=== PATIENT | male | born 1980 | race Caucasian/White ===

== ENCOUNTER 2017-05-31 13:47 | Inpatient (IN) ==
[~2017-05-31 13:47] MED LIST: Aminoglycoside Consult 1 EACH MC ONE
[2017-05-31] MEDS ORDERED: Naloxone 0.4 MG/ML INJ IVP PRN (18:10)
--- NOTE | 2017-05-31 18:39 | Internal Med History&Physical ---
<Steven Henry - Last Filed: 05/31/17 20:00> Date of Encounter: 05/31/17 Internal Medicine - H&P: HPI History of present illness: Mr. Beck is a 36 year old male Internal Medicine - H&P: Meds Gabapentin [Neurontin] 800 mg PO BID 12/09/16 [History] Lactobacillus Acidophilus [Acidophilus] 1 each PO BID 12/09/16 [History] Polyethylene Glycol 3350 [MiraLAX Powder Bulk 17.9 Oz] 1 scoop PO DAILY [History] Ranitidine Oral Soln [Zantac] 75 mg PO HS 12/09/16 [History] Simethicone [Gas-X] 80 mg PO QID 12/09/16 [History] 3 Allergy/AdvReac Type Severity Reaction Status Date / Time levofloxacin [From Levaquin] Allergy See Verified 05/31/17 09:42 Comments meperidine [From Demerol] Allergy See Verified 05/31/17 09:42 Comments ondansetron Allergy See Verified 05/31/17 09:42 [From Zofran (as Comments hydrochloride)] All Systems PM: A 10-system review of systems was performed and is negative for pertinent findings except as documented above in the HPI. - Constitutional Vitals: Temp Pulse Resp BP Pulse Ox 101.2 F H 119 20 141/112 94 05/31/17 16:55 05/31/17 16:55 05/31/17 16:55 05/31/17 16:55 05/31/17 18:05 - Attending Attestation I independently obtained history and examined this patient and my medical decision-making was reviewed with the nurse practitioner. I agree with the documented findings, disposition and treatment plan as described. My findings are summarized below: Patient is nonverbal at baseline. He has chronic dysphagia and has nutrition by tube feeds. He had one episode of aspiration at the alf and was transferred to our hospital for further care. Patient is currently afebrile and tachycardic. CT of the chest compatible with pneumonia. We will treat him as sepsis secondary to healthcare associated pneumonia with Zosyn and vancomycin , IV fluids. Check blood cultures and sputum culture. Consult pulmonology. He is at high risk for morbidity mortality and complications due to poor baseline mental status. Steven Henry MD <Felipe Olivares Last Filed: 05/31/17 20:34> Date of Encounter: 05/31/17 Time of Encounter: 18:28 Assessment and Plan (1) Mucus plugging of bronchi Current visit: Yes Status: Acute Patient is a 1 day history of increased respiratory distress. At baseline he does not require any O2, however, at this time is requiring 5 L cannula to maintain SPO2 94% or greater. CT of the lungs revealed it is plugs and left lower lobe likely requiring bronchoscopy. Continuous telemetry Continuous SPO2 monitoring with respiratory support as needed; if patient declines consider intubation instead Bipap as he is unable to protect his airway Consult pulmonology as the patient may need bronchoscopy. (2) Sepsis Current visit: Yes Status: Acute Patient is tachycardic and afebrile. Hemodynamically stable at this time. Due to meeting SIRS criteria: Initiate sepsis protocol; he has a risk for aspiration pneumonia due to vomiting of tube feed. Stat lactic acid, stat blood cultures, ABG Vancomycin with pharmacy to dose Zosyn every 8 hours Narrow antibiotic therapy is appropriate Qualifiers: Sepsis type: sepsis due to unspecified organism Qualified Code(s): A41.9 - Sepsis, unspecified organism (3) Aspiration into respiratory tract Current visit: Yes Status: Acute Patient is a resident of [facility], [facility]. They reported finding him this morning with tube feed emisis and in respiratory distress. Concerning for aspiration pneumonia. Initial chest x-ray negative for acute pulmonary process. Initial CT of chest shows no concern for aspiration pneumonia only exhibiting mild mucus plugging in left upper lobe. see plan above Qualifiers: Encounter type: initial encounter Qualified Code(s): T17.908A - Unspecified foreign body in respiratory tract, part unspecified causing other injury, initial encounter (4) UTI (urinary tract infection) Current visit: Yes Status: Acute UA revealing large amount of leukocytes, moderate amount of blood in the urine. Urinary tract infection, also be causing septic response. The patient is on Zosyn , this should cover urinary tract organisms. Qualifiers: Urinary tract infection type: site unspecified Hematuria presence: with hematuria Qualified Code(s): N39.0 - Urinary tract infection, site not specified; R31.9 - Hematuria, unspecified; R31.9 - Hematuria, unspecified (5) DVT prophylaxis Current visit: Yes Status: Acute LOVENOX 40MG SC DAILY Internal Medicine - H&P: HPI Chief complaint: Shortness of breath Admitted From: Long-term [facility] Plans for Post Hospital Care: Transfer [facility] History of present illness: Mr. Beck is a 36 year old male with a PMH of MRDD, GERD, seizures. Presents to [facility] today with new shortness of breath and cough. Father at bedside, father reports that he lives at [facility]. Daughter reports that [facility] contacted him this morning and informed the patient was having respiratory distress and requiring IV flow oxygen to maintain his oxygen saturation. He reports that the [facility] facility informed him they were concerned that the patient may have aspirated on his tube feed. He was told that the patient was found with tube feed coming out of his mouth. Upon my assessment the patient remains on 5 L nasal cannula but is not in any respiratory distress. X-ray and CT of chest negative for aspiration pneumonia. CT of chest shows mucus plugging. CBC and CMP unremarkable. Admitting for further workup and evaluation Past Med Surg Social Fam HX - Past Medical History Medical history: GERD, seizures Psychiatric history: no psych history - Social History Smoking Status: Never smoker Smokeless Tobacco Status: No Alcohol use: none Drug use: none - Additional Family History Additional family history: Noncontributory ROS unobtainable: due to mental status All Systems PM: Review of systems obtained from father at bedside. Review of systems was obtained to the best of my capabilities as the patient is MRDD and unable to adequately communicate. - Constitutional Constitutional: no fever(s) - EENT Eyes: no change in vision - Cardiovascular Cardiovascular ROS IM: dyspnea - Respiratory Respiratory: dyspnea - Constitutional Vitals: Temp Pulse Resp BP Pulse Ox 101.2 F H 119 20 141/112 94 05/31/17 16:55 05/31/17 16:55 05/31/17 16:55 05/31/17 16:55 05/31/17 18:05 General appearance: Present: A&O X 0, mild distress - Head Head exam: Present: atraumatic, normocephalic - Eye Eye exam: Present: conjuntiva pink, sclera anicteric - Neck Neck exam general surgery: Present: supple, trachea midline. Absent: lymphadenopathy - Respiratory Respiratory exam: Present: CTAB, respiratory distress (Mild respiratory distress ), rhonchi. Absent: accessory muscle use, rales, wheezes - Cardiovascular Cardiovascular exam: Present: RRR, +S1, +S2. Absent: diastolic murmur, gallop, rubs, systolic murmur - GI/Abdominal GI/Abdominal exam: Present: normal bowel sounds, soft, no peritoneal signs. Absent: distended, tenderness - Extremities Exam Extremities exam: Present: warm, radial pulses palpable and symmetrical. Absent : calf tenderness, cyanotic, pedal edema - Neurological Exam Neurological exam: Present: altered, CN II-XII intact (due to MRDD), no focal deficits. Absent: pronater drift, facial droop, speech deficit - Skin Skin exam: Present: dry, intact
[2017-05-31] MEDS ORDERED: Vancomycin 1,250 MG in D5% in Water 250 ML IVPB ONE (20:00)
[2017-05-31] MEDS ORDERED: Simethicone 80 MG TAB.CHEW PO SCH (21:00)
[2017-05-31] MEDS ORDERED: Gabapentin 400 MG CAPSULE PO SCH (21:00)
[2017-05-31] MEDS ORDERED: Lactobacillus 1 EACH CAP.SPRINK PO SCH (21:00)
[2017-05-31 21:18] LABS: ABG Base Excess -1 mEq/L (-2 to 3); ABG HCO3 24 mEq/L (21-27); ABG Oxygen Saturation 97 % (95-98); ABG PCO2 38 mmHg (35-45); ABG PO2 92 mmHg (85-104); ABG TCO2 25 mEq/L (20-26)
[2017-05-31] MEDS: 0.9 % Sodium Chloride 1,000 ML IVC SCH (23:00)
[2017-05-31] MEDS: Piperacillin/Tazobactam 3.375 GM in D5% in Water (Mini-Bag+) 100 ML IVPB SCH (23:37)
[2017-06-01 03:51] LABS: Basophils % 0.2 %; Eosinophils % 0.1 %; Hematocrit 44.2 % (37.5-50.1); Hemoglobin 14.4 g/dL (12.9-16.9); Immature Granulocytes % 0.3 % (0-4); Lymphocytes # 1.5 K/mcL (0.6-4.6); Lymphocytes % 13.2 %; Mean Corpuscular HGB Conc 32.6 g/dL (31.6-35.5); Mean Corpuscular Hemoglobin 29.4 pg (28.0-33.3); Mean Corpuscular Volume 90.2 fL (83.0-100.0); Mean Platelet Volume 12.4 fL (9.4-12.4); Monocytes # 0.8 K/mcL (0.0-1.3); Monocytes % 7.2 %; Neutrophils # 9.2 K/mcL (1.6-8.9); Platelet Count 172 K/mcL (140-400); Red Cell Distribution Width 12.9 % (11.5-14.5)
[2017-06-01 04:04] LABS: BUN/Creatinine Ratio 14 (6-26); Blood Urea Nitrogen 8 mg/dL (8-26); Calcium 8.7 mg/dL (8.6-10.8); Carbon Dioxide 22 mEq/L (19-29); Chloride 108 mEq/L (98-109); Glucose 90 mg/dL (70-99); Osmolality,Calculated 284 (280-300); Potassium 3.7 mEq/L (3.5-4.5); Sodium 138 mEq/L (136-145); eGFR For African Americans > 60 (> 60); eGFR For Non-African Americans > 60 (> 60)
[2017-06-01] MEDS: *HR* Enoxaparin 40 MG/0.4 ML SYRINGE SQ SCH (05:40)
[2017-06-01] MEDS: Lactobacillus 1 EACH CAP.SPRINK PO SCH (07:44)
[2017-06-01] MEDS: Simethicone 80 MG TAB.CHEW PO SCH ×3 (07:44→17:32)
[2017-06-01] MEDS: Gabapentin 400 MG CAPSULE PO SCH (07:44)
[2017-06-01] MEDS: Piperacillin/Tazobactam 3.375 GM in D5% in Water (Mini-Bag+) 100 ML IVPB SCH ×2 (07:50→17:32)
[2017-06-01] MEDS ORDERED: Polyethylene Glycol 3350 255 GM POWDER PO SCH ×2 (09:00)
[2017-06-01] MEDS ORDERED: Vancomycin 1,250 MG in D5% in Water 250 ML IVPB SCH (10:00)
--- NOTE | 2017-06-01 10:30 | Internal Med Progress Note ---
<Clemente Nowak - Last Filed: 06/01/17 18:55> Date of Encounter: 06/01/17 - Assessment and plan (1) Acute respiratory failure with hypoxia Current Visit: Yes Status: Acute (2) Aspiration pneumonia due to food (regurgitated) Current Visit: Yes Status: Suspected Qualifiers: Laterality: unspecified laterality Lung location: unspecified part of lung Qualified Code(s): J69.0 - Pneumonitis due to inhalation of food and vomit (3) Sepsis Current Visit: Yes Status: Acute Qualifiers: Sepsis type: sepsis due to unspecified organism Qualified Code(s): A41.9 - Sepsis, unspecified organism (4) Mucus plugging of bronchi Current Visit: Yes Status: Acute (5) UTI (urinary tract infection) Current Visit: Yes Status: Acute Qualifiers: Urinary tract infection type: acute cystitis Hematuria presence: with hematuria Qualified Code(s): N30.01 - Acute cystitis with hematuria - Constitutional Vitals: Temp Pulse Resp BP Pulse Ox 98.2 F 58 22 119/86 96 06/01/17 15:35 06/01/17 15:35 06/01/17 15:35 06/01/17 15:35 06/01/17 15:35 Internal Medicine: Result - Labs CBC & Chem 7: 06/01/17 02:58 06/01/17 02:58 Labs: Short CBC 06/01/17 Range/Units 02:58 WBC 11.6 H (4.3-11.1) K/mcL Hgb 14.4 D (12.9-16.9) g/dL Hct 44.2 (37.5-50.1) % Plt Count 172 (140-400) K/mcL Neutrophils # 9.2 H (1.6-8.9) K/mcL BMP 06/01/17 02:58 Sodium 138 Potassium 3.7 D Chloride 108 Carbon Dioxide 22 BUN 8 Creatinine 0.57 L Glucose 90 Calcium 8.7 - ABG Interpretation ABG results: ABG ABG pH 7.40 pH Units (7.32-7.45) 05/31/17 21:13 ABG pCO2 38 mmHg (35-45) 05/31/17 21:13 ABG pO2 92 mmHg (85-104) 05/31/17 21:13 ABG O2 Saturation 97 % (95-98) 05/31/17 21:13 Consult Discharge Plan - Plan Referrals: Amy Serrato MD [Primary Care Provider] - - Attending Attestation I examined this patient and my medical decision-making was reviewed with the Resident Physician on 06/01/17. I agree with the documented findings, disposition and treatment plan as described except to the extent set forth below. Mr Beck is currently admitted for acute aspiration pneumonia. He remains moderate to high risk due to potential for worsening respiratory status. Mr Beck is nonverbal. Exam Alert. Comfortable at this time. Mucus membranes dry Heart reg Lungs with rhonchi Abd soft I/P 1. Asp pneumonia Further diagnoses and plan as above. <Orin Cox - Last Filed: 06/02/17 06:41> Date of Encounter: 06/02/17 Time of Encounter: 10:27 - Assessment and plan (1) Sepsis Current Visit: Yes Status: Acute Assessment and plan: SIRS criteria met with tachycardia and fever on admission due to UTI vs pneumonia Vancomycin and Zosyn started on admission; stop Vancomycin continue Zosyn Qualifiers: Sepsis type: sepsis due to unspecified organism Qualified Code(s): A41.9 - Sepsis, unspecified organism (2) Aspiration pneumonia due to food (regurgitated) Current Visit: Yes Status: Suspected Assessment and plan: witnessed aspiration of G-tube feed into esophagus suspect aspiration pneumonia, although CT does not show focal consolidation healthcare associated pneumonia due to patient living at alf Vancomycin and Zosyn started on admission; stop Vancomycin continue Zosyn Qualifiers: Laterality: unspecified laterality Lung location: unspecified part of lung Qualified Code(s): J69.0 - Pneumonitis due to inhalation of food and vomit (3) UTI (urinary tract infection) Current Visit: Yes Status: Acute Assessment and plan: probable urine culture pending Vancomycin and Zosyn started on admission; stop Vancomycin continue Zosyn Qualifiers: Urinary tract infection type: acute cystitis Hematuria presence: with hematuria Qualified Code(s): N30.01 - Acute cystitis with hematuria (4) Mucus plugging of bronchi Current Visit: Yes Status: Acute Assessment and plan: mucus plugging of bronchi, left lower lobe, seen on CT chest possible need for bronchoscopy pulmonology consulted; appreciate recommendations - Subjective Interval history: Patient is nonverbal. No family members present. - Constitutional Vitals: Temp Pulse Resp BP Pulse Ox 99.4 F 69 20 133/82 93 06/01/17 08:30 06/01/17 08:30 06/01/17 08:30 06/01/17 08:30 06/01/17 08:30 General appearance: Present: no acute distress - Head Head exam: Present: atraumatic, normocephalic - Eye Eye exam: Present: PERRL, conjuntiva pink, sclera anicteric Pupils: Present: PERRL - Neck Neck exam general surgery: Present: supple, trachea midline - Respiratory Respiratory exam: Present: CTAB Additional comments: on 3L supplemental O2, does not chronically use supplemental O2 - Cardiovascular Cardiovascular exam: Present: RRR, +S1, +S2. Absent: diastolic murmur, gallop, rubs, systolic murmur - GI/Abdominal GI/Abdominal exam: Present: normal bowel sounds, soft. Absent: tenderness Additional comments: LUQ G-tube and LLQ colostomy in place - Extremities Exam Extremities exam: Present: warm. Absent: pedal edema Additional comments: contractures of all extremities, mainly focused at the hands and feet - Neurological Exam Additional comments: nonverbal at baseline, does not follow commands - Skin Skin exam: Present: dry, intact Internal Medicine: Result - Labs CBC & Chem 7: 06/01/17 02:58 06/01/17 02:58 Labs: Short CBC 06/01/17 Range/Units 02:58 WBC 11.6 H (4.3-11.1) K/mcL Hgb 14.4 D (12.9-16.9) g/dL Hct 44.2 (37.5-50.1) % Plt Count 172 (140-400) K/mcL Neutrophils # 9.2 H (1.6-8.9) K/mcL BMP 06/01/17 02:58 Sodium 138 Potassium 3.7 D Chloride 108 Carbon Dioxide 22 BUN 8 Creatinine 0.57 L Glucose 90 Calcium 8.7 - ABG Interpretation ABG results: ABG ABG pH 7.40 pH Units (7.32-7.45) 05/31/17 21:13 ABG pCO2 38 mmHg (35-45) 05/31/17 21:13 ABG pO2 92 mmHg (85-104) 05/31/17 21:13 ABG O2 Saturation 97 % (95-98) 05/31/17 21:13
[2017-06-01] MEDS: 0.9 % Sodium Chloride 1,000 ML IVC SCH (17:33)
[2017-06-02] MEDS: Gabapentin 400 MG CAPSULE PO SCH ×3 (00:26→21:29)
[2017-06-02] MEDS: Simethicone 80 MG TAB.CHEW PO SCH ×5 (00:26→21:29)
[2017-06-02] MEDS: Lactobacillus 1 EACH CAP.SPRINK PO SCH ×2 (00:26→12:00)
[2017-06-02] MEDS: Piperacillin/Tazobactam 3.375 GM in D5% in Water (Mini-Bag+) 100 ML IVPB SCH ×3 (00:38→21:29)
[2017-06-02] MEDS: *HR* Enoxaparin 40 MG/0.4 ML SYRINGE SQ SCH (05:49)
[2017-06-02 07:30] LABS: BUN/Creatinine Ratio 8 (6-26); Blood Urea Nitrogen 10 mg/dL (8-26); Calcium 8.4 mg/dL (8.6-10.8); Carbon Dioxide 20 mEq/L (19-29); Chloride 113 mEq/L (98-109); Glucose 103 mg/dL (70-99); Osmolality,Calculated 293 (280-300); Potassium 3.8 mEq/L (3.5-4.5); Sodium 142 mEq/L (136-145); eGFR For African Americans > 60 (> 60); eGFR For Non-African Americans > 60 (> 60)
[2017-06-02 07:44] LABS: Basophils % 0.3 %; Eosinophils % 0.4 %; Hematocrit 41.3 % (37.5-50.1); Hemoglobin 13.3 g/dL (12.9-16.9); Immature Granulocytes % 0.4 % (0-4); Lymphocytes % 12.8 %; Mean Corpuscular HGB Conc 32.2 g/dL (31.6-35.5); Mean Corpuscular Hemoglobin 29.2 pg (28.0-33.3); Mean Corpuscular Volume 90.8 fL (83.0-100.0); Mean Platelet Volume 12.1 fL (9.4-12.4); Monocytes # 1.1 K/mcL (0.0-1.3); Monocytes % 14.4 %; Neutrophils # 5.7 K/mcL (1.6-8.9); Platelet Count 143 K/mcL (140-400); Red Blood Count 4.55 M/mcL (4.19-5.50); Red Cell Distribution Width 13.2 % (11.5-14.5); Segmented Neutrophils % 71.7 %
--- NOTE | 2017-06-02 10:59 | Internal Med Progress Note ---
<Orin Cox - Last Filed: 06/02/17 11:27> Date of Encounter: 06/02/17 Time of Encounter: 10:57 - Assessment and plan (1) Sepsis Current Visit: Yes Status: Acute Assessment and plan: SIRS criteria met with tachycardia and fever on admission due to UTI vs pneumonia continue Zosyn Qualifiers: Sepsis type: sepsis due to unspecified organism Qualified Code(s): A41.9 - Sepsis, unspecified organism (2) Acute respiratory failure with hypoxia Current Visit: Yes Status: Acute Assessment and plan: currently on 3L via NC does not use home O2 (3) Aspiration pneumonia due to food (regurgitated) Current Visit: Yes Status: Suspected Assessment and plan: witnessed aspiration of G-tube feed into esophagus suspect aspiration pneumonia, although CT does not show focal consolidation healthcare associated pneumonia due to patient living at skilled nursing blood culture preliminary no growth continue Zosyn Qualifiers: Laterality: unspecified laterality Lung location: unspecified part of lung Qualified Code(s): J69.0 - Pneumonitis due to inhalation of food and vomit (4) UTI (urinary tract infection) Current Visit: Yes Status: Acute Assessment and plan: urine culture preliminary report gram positive cocci continue Zosyn Qualifiers: Urinary tract infection type: acute cystitis Hematuria presence: with hematuria Qualified Code(s): N30.01 - Acute cystitis with hematuria (5) Mucus plugging of bronchi Current Visit: Yes Status: Acute Assessment and plan: mucus plugging of bronchi, left lower lobe, seen on CT chest possible need for bronchoscopy pulmonology consulted; appreciate recommendations (6) PARKER (acute kidney injury) Current Visit: Yes Status: Acute Assessment and plan: Cr increased from 0.57 --> 1.27 will scan bladder to check for retention as patient is nonverbal at baseline and does not have a jiménez (7) Decreased hemoglobin Current Visit: Yes Status: Acute Assessment and plan: dropped from 16.3 to 13.3 no obvious source of bleeding GI on board; appreciate recommendations - Subjective Interval history: Patient is nonverbal. No family members present. - Constitutional Vitals: Temp Pulse Resp BP Pulse Ox 99 F 51 15 117/90 95 06/02/17 04:30 06/02/17 07:03 06/02/17 07:03 06/02/17 07:03 06/02/17 07:03 General appearance: Present: mild distress - Head Head exam: Present: atraumatic, normocephalic - Neck Neck exam general surgery: Present: supple, trachea midline - Respiratory Respiratory exam: Present: rhonchi. Absent: wheezes, tachypnea Additional comments: on 3L supplemental O2, does not chronically use supplemental O2 - Cardiovascular Cardiovascular exam: Present: RRR, +S1, +S2. Absent: diastolic murmur, gallop, rubs, systolic murmur - GI/Abdominal GI/Abdominal exam: Present: normal bowel sounds, soft Additional comments: LUQ G-tube and LLQ colostomy in place - Extremities Exam Extremities exam: Present: warm. Absent: pedal edema Additional comments: contractures of all extremities, mainly focused at the hands and feet - Neurological Exam Additional comments: nonverbal at baseline, does not follow commands - Skin Skin exam: Present: dry, intact Internal Medicine: Result - Labs CBC & Chem 7: 06/02/17 07:00 06/02/17 07:00 Labs: Short CBC 06/02/17 Range/Units 07:00 WBC 7.9 (4.3-11.1) K/mcL Hgb 13.3 (12.9-16.9) g/dL Hct 41.3 (37.5-50.1) % Plt Count 143 (140-400) K/mcL Neutrophils # 5.7 (1.6-8.9) K/mcL BMP 06/02/17 07:00 Sodium 142 Potassium 3.8 Chloride 113 H Carbon Dioxide 20 BUN 10 Creatinine 1.27 H D Glucose 103 H Calcium 8.4 L - ABG Interpretation ABG results: ABG ABG pH 7.40 pH Units (7.32-7.45) 05/31/17 21:13 ABG pCO2 38 mmHg (35-45) 05/31/17 21:13 ABG pO2 92 mmHg (85-104) 05/31/17 21:13 ABG O2 Saturation 97 % (95-98) 05/31/17 21:13 - Impressions Impressions KUB X-Ray 06/01/17 20:37 IMPRESSION: The feeding tube is in the gastrointestinal tract, probably in the stomach. No extravasation of contrast is seen. D/ / Sage Whitman MD / Sage Whitman MD Interpreting Provider: Sage Whitman MD Consult Discharge Plan - Plan Referrals: Amy Serrato MD [Primary Care Provider] - <Clemente Nowak - Last Filed: 06/02/17 15:59> Date of Encounter: 06/02/17 - Assessment and plan (1) Acute respiratory failure with hypoxia Current Visit: Yes Status: Acute (2) Aspiration pneumonia due to food (regurgitated) Current Visit: Yes Status: Suspected Qualifiers: Qualified Code(s): J69.0 - Pneumonitis due to inhalation of food and vomit (3) Sepsis Current Visit: Yes Status: Acute Qualifiers: Qualified Code(s): A41.9 - Sepsis, unspecified organism (4) Mucus plugging of bronchi Current Visit: Yes Status: Acute (5) UTI (urinary tract infection) Current Visit: Yes Status: Acute Qualifiers: Qualified Code(s): N30.01 - Acute cystitis with hematuria (6) PARKER (acute kidney injury) Current Visit: Yes Status: Acute - Constitutional Vitals: Temp Pulse Resp BP Pulse Ox 99.5 F 61 21 133/99 95 06/02/17 11:26 06/02/17 11:26 06/02/17 11:26 06/02/17 11:26 06/02/17 11:26 Internal Medicine: Result - Labs CBC & Chem 7: 06/02/17 07:00 06/02/17 07:00 Labs: Short CBC 06/02/17 Range/Units 07:00 WBC 7.9 (4.3-11.1) K/mcL Hgb 13.3 (12.9-16.9) g/dL Hct 41.3 (37.5-50.1) % Plt Count 143 (140-400) K/mcL Neutrophils # 5.7 (1.6-8.9) K/mcL BMP 06/02/17 07:00 Sodium 142 Potassium 3.8 Chloride 113 H Carbon Dioxide 20 BUN 10 Creatinine 1.27 H D Glucose 103 H Calcium 8.4 L - ABG Interpretation ABG results: ABG ABG pH 7.40 pH Units (7.32-7.45) 05/31/17 21:13 ABG pCO2 38 mmHg (35-45) 05/31/17 21:13 ABG pO2 92 mmHg (85-104) 05/31/17 21:13 ABG O2 Saturation 97 % (95-98) 05/31/17 21:13 - Impressions Impressions KUB X-Ray 06/01/17 20:37 IMPRESSION: The feeding tube is in the gastrointestinal tract, probably in the stomach. No extravasation of contrast is seen. D/ / Sage Whitman MD / Sage Whitman MD Interpreting Provider: Sage Whitman MD - Attending Attestation I examined this patient and my medical decision-making was reviewed with the Resident Physician on 06/02/17. I agree with the documented findings, disposition and treatment plan as described except to the extent set forth below. Mr. Beck is currently admitted for acute aspiration pneumonia presumptive. He had issues with PEG last night. He remains moderate to high risk due to potential for worsening clinical status. Mr Beck is nonverbal. Exam Alert Restless Mucus membranes dry Heart reg and not tachy Lungs diminished Abd soft I/P 1. Aspiration 2. PARKER Further diagnoses and plan as above.
--- NOTE | 2017-06-02 11:34 | Pulmonology Consult Note ---
Date of Encounter: 06/02/17 Time of Encounter: 11:30 Assessment and Plan (1) Aspiration pneumonia due to food (regurgitated) Current Visit: Yes Status: Suspected Patient looks like he aspirated reviewing the Ct scan there is no evidence of airspace disease , there were some mucous sub segmental bronchus , the main left lower lobar segmental bronchi are patent there is no significant volume loss but there is evidence of atelectasis and chronic scarring causing these symptoms if it is not getting better in next few days PE is a part of differential . Put down the O2 to 2 LPM patient was saturating 95% , patient has sleep disordered breathing that can contribute to his desaturating. Requested RT do vest therapy see he will tolerate and that will help him. Qualifiers: Laterality: unspecified laterality Lung location: unspecified part of lung Qualified Code(s): J69.0 - Pneumonitis due to inhalation of food and vomit (2) PARKER (acute kidney injury) Current Visit: Yes Status: Acute Volume repletion and repeat serum creatinine. 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 Pulmonary was consulted because of some mucous plugging in the left lower lobe sub segmental bronchi need for bronchoscopy Past Med Surg Social Fam HX - Past Medical History Medical history: GERD, seizures Psychiatric history: no psych history - Social History Smoking Status: Never smoker Smokeless Tobacco Status: No Alcohol use: none Drug use: none Medications and Allergies Gabapentin [Neurontin] 800 mg GTUBE BID 06/01/17 [History] Lactobacillus Acidophilus [Acidophilus] 1 cap GTUBE BID 06/01/17 [History] Multivit-Min/FA/Lycopen/Lutein [A Thru [employer] Multivit Tab] 1 tab GTUBE DAILY 06/01/17 [History] Polyethylene Glycol 3350 [MiraLAX] 17 gm PO DAILY 06/01/17 [History] Ranitidine HCl [Acid [employer]] 150 mg GTUBE HS 06/01/17 [History] Simethicone 80 mg GTUBE QID 06/01/17 [History] 3 Allergy/AdvReac Type Severity Reaction Status Date / Time levofloxacin [From Levaquin] Allergy See Verified 05/31/17 09:42 Comments meperidine [From Demerol] Allergy See Verified 05/31/17 09:42 Comments ondansetron Allergy See Verified 05/31/17 09:42 [From Zofran (as Comments hydrochloride)] All Systems: A 10-system review of systems cannot be done because of baseline mental status Physical Examination Vital Signs: Vital Signs, Last 4 Hours Temp Pulse Resp BP Pulse Ox 06/02/17 11:26 99.5 F 61 21 133/99 95 Auscultation: bilateral: rales (scattered rales ) Gastrointestinal: hypoactive bowel sounds, other (PEG tube site looks clean ) Extremities: other (contractures chronic ) other (non verbal baseline ) Results - Laboratory Findings CBC and BMP: 06/02/17 07:00 06/02/17 07:00 ABG ABG pH 7.40 pH Units (7.32-7.45) 05/31/17 21:13 ABG pCO2 38 mmHg (35-45) 05/31/17 21:13 ABG pO2 92 mmHg (85-104) 05/31/17 21:13 ABG O2 Saturation 97 % (95-98) 05/31/17 21:13 Abnormal lab findings: Abnormal lab results Chloride 113 mEq/L (98-109) H 06/02/17 07:00 Creatinine 1.27 mg/dL (0.72-1.25) H D 06/02/17 07:00 Glucose 103 mg/dL (70-99) H 06/02/17 07:00 POC Glucose 100 (58-89) H 06/01/17 23:56 Calcium 8.4 mg/dL (8.6-10.8) L 06/02/17 07:00 - Microbiology Findings Microbiology Findings: Microbiology, Last 48 Hours 05/31/17 20:41 Blood Culture - Preliminary Peripheral Venipuncture No growth. 05/31/17 20:41 Blood Culture - Preliminary Peripheral Venipuncture No growth. - Clinical Findings Intake & Output: Intake & Output 06/01/17 06/02/17 06/02/17 23:59 07:59 15:59 Intake Total 1125 / 1125 0 / 0 0 / 0 Output Total 400 / 400 0 / 0 Balance 1125 / 1125 -400 / -400 0 / 0 Weight 61.5 kg 61.5 kg Consult Discharge Plan - Plan Referrals: Amy Serrato MD [Primary Care Provider] -
--- NOTE | 2017-06-02 12:09 | Gastroenterology Consult Note ---
Date of Encounter: 06/02/17 Time of Encounter: 10:10 - Assessment and plan (1) PEG (percutaneous endoscopic gastrostomy) status Current Visit: Yes Status: Acute Assessment and plan: PEG tube in place, small amount of drainage noted on 4x4. Dressing removed, no drainage noted from insertion site. KUB with feeding tube in GI tract, probably in GI tract. (2) Decreased hemoglobin Current Visit: Yes Status: Acute Assessment and plan: Hgb 16 on 05/31 and today Hgb 13.3. Continue to monitor CBC daily. Will discuss EGD/colonoscopy with Dr. Flanagan, as there is no obvious source of bleeding. (3) Sepsis Current Visit: Yes Status: Acute Assessment and plan: Management per primary team Qualifiers: Sepsis type: sepsis due to unspecified organism Qualified Code(s): A41.9 - Sepsis, unspecified organism - Time Spent With Patient Total time spent is greater than 50% in coordination of care (as documented) at patient's floor/unit and/or counseling patient: GI History of Present Illness - Data of Consult Patient: new to practice Consult date: 06/02/17 Requesting Physician: Clemente Nowak DO - Consult Narrative Reason for consult: Brown drainage from PEG site History of present illness: Mr. Beck is a 36 year old male with PMHx of MRDD, GERD, seizures who presented with SOB and cough. Pt is nonverbal and history obtained from chart review. No family at bedside. Pt lives [facility] a [facility]. The facility contacted the family and reported the patient was having respiratory distress and requiring IV flow oxygen to maintain his oxygen saturation. The long-term care facility informed him they were concerned that the patient may have aspirated on his tube feed. He was told that the patient was found with tube feed coming out of his mouth. X-ray and CT of chest negative for aspiration pneumonia. CT of chest shows mucus plugging. Procedures: None NSAIDs: None Anticoagulation: None Past Med Surg Social Fam HX - Past Medical History Medical history: GERD, seizures Psychiatric history: no psych history - Social History Smoking Status: Never smoker Smokeless Tobacco Status: No Alcohol use: none Drug use: none ROS unobtainable: due to mental status - Constitutional Vitals: Temp Pulse Resp BP Pulse Ox 99.5 F 61 21 133/99 95 06/02/17 11:26 06/02/17 11:26 06/02/17 11:26 06/02/17 11:26 06/02/17 11:26 General appearance: Present: no acute distress - Head Head exam: Present: atraumatic, normocephalic - Eye Eye exam: Present: normal appearance, sclera anicteric - ENT ENT exam: Present: mucous membranes dry - Neck Neck exam general surgery: Present: normal inspection, trachea midline - Respiratory Respiratory exam: Present: decreased breath sounds, rhonchi - Cardiovascular Cardiovascular exam: Present: RRR, +S1, +S2 - GI/Abdominal GI/Abdominal exam: Present: soft, no peritoneal signs. Absent: distended, firm , guarding, tenderness Additional comments: LUQ G-tube and LLQ colostomy in place - Rectal Rectal exam: Present: deferred - Extremities Exam Extremities exam: Present: warm - Neurological Exam Neurological exam: Present: no focal deficits - Psychiatric Psychiatric exam: Present: normal affect, normal mood - Skin Skin exam: Present: dry, intact, normal color, warm Results - Labs CBC & Chem 7: 06/02/17 07:00 06/02/17 07:00 Labs: Last Result Calcium 8.4 mg/dL (8.6-10.8) L 06/02/17 07:00 Entire Visit Hgb 13.3 g/dL (12.9-16.9) 06/02/17 07:00 Hct 41.3 % (37.5-50.1) 06/02/17 07:00 - ABG ABG results: ABG ABG pH 7.40 pH Units (7.32-7.45) 05/31/17 21:13 ABG pCO2 38 mmHg (35-45) 05/31/17 21:13 ABG pO2 92 mmHg (85-104) 05/31/17 21:13 ABG O2 Saturation 97 % (95-98) 05/31/17 21:13 - Impressions Impressions KUB X-Ray 06/01/17 20:37 IMPRESSION: The feeding tube is in the gastrointestinal tract, probably in the stomach. No extravasation of contrast is seen. D/ / Sage Whitman MD / Sage Whitman MD Interpreting Provider: Sage Whitman MD Consult Discharge Plan - Plan Referrals: Amy Serrato MD [Primary Care Provider] -
[2017-06-02] MEDS: 0.9 % Sodium Chloride 1,000 ML IVC SCH (17:15)
[2017-06-02] MEDS ORDERED: Lactobacillus 1 EACH CAP.SPRINK GTUBE SCH (21:00)
[2017-06-02] MEDS ORDERED: Sulfamethoxazole/Trimeth DS 1 EACH TABLET PO SCH (21:00)
[2017-06-03] MEDS: 0.9 % Sodium Chloride 1,000 ML IVC SCH (03:41)
[2017-06-03 04:00] LABS: Basophils % 0.4 %; Eosinophils % 0.5 %; Hematocrit 39.3 % (37.5-50.1); Hemoglobin 12.7 g/dL (12.9-16.9); Immature Granulocytes % 0.2 % (0-4); Lymphocytes # 1.3 K/mcL (0.6-4.6); Lymphocytes % 15.2 %; Mean Corpuscular HGB Conc 32.3 g/dL (31.6-35.5); Mean Corpuscular Hemoglobin 29.3 pg (28.0-33.3); Mean Corpuscular Volume 90.6 fL (83.0-100.0); Mean Platelet Volume 11.7 fL (9.4-12.4); Monocytes # 1.1 K/mcL (0.0-1.3); Monocytes % 12.8 %; Neutrophils # 6.1 K/mcL (1.6-8.9); Platelet Count 138 K/mcL (140-400); Red Blood Count 4.34 M/mcL (4.19-5.50); Red Cell Distribution Width 13.2 % (11.5-14.5); Segmented Neutrophils % 70.9 %
[2017-06-03 04:19] LABS: Calcium 8.3 mg/dL (8.6-10.8); Potassium 3.3 mEq/L (3.5-4.5)
[2017-06-03] MEDS: Piperacillin/Tazobactam 3.375 GM in D5% in Water (Mini-Bag+) 100 ML IVPB SCH (05:50)
[2017-06-03] MEDS: *HR* Enoxaparin 40 MG/0.4 ML SYRINGE SQ SCH (05:51)
--- NOTE | 2017-06-03 08:08 | Nephrology Consult Note ---
Date of Encounter: 06/03/17 Time of Encounter: 08:06 Assessment and Plan (1) PARKER (acute kidney injury) Current Visit: Yes Status: Acute The patient has a clinical picture of acute kidney injury in the setting of a MRSA urinary tract infection. Bladder dysfunction needs to be ruled out. Currently he is incontinent of urine. I will suggest placing a Piper so we can ensure adequate bladder drainage and also monitor his urine output. Nephrotoxins should be avoided. He should not be placed on vancomycin. In addition he is on ranitidine and Bactrim both of which can reduce the renal secretion of creatinine without affecting his GFR. This may be at least contributing to the increase in his serum creatinine level without causing any underlying renal injury. Adequate IV hydration needs to be insured until the patient is on adequate intake through his feeding tube. We will continue to monitor his renal function we will also get a renal ultrasound to get a better look at his bladder. (2) UTI (urinary tract infection) Current Visit: Yes Status: Acute Qualifiers: Urinary tract infection type: acute cystitis Hematuria presence: with hematuria Qualified Code(s): N30.01 - Acute cystitis with hematuria History of Present Illness - History of Present Illness This is a 36-year-old male from an [facility]. The patient has a history of MRDD and is nonverbal. History is obtained from the medical record. The patient was sent to the emergency room because of concern for possible aspiration pneumonia. He is maintained on tube feedings through a PEG tube. According to the medical record some tube feedings were found in his mouth. He subsequently was sent in for further evaluation. CT scan and chest x-ray did not suggest any evidence of pneumonia. A urine culture is growing MRSA. Blood cultures are negative. On admission the patient had a normal serum creatinine of 0.57. It has subsequently increased to 1.27 and now is 2.05. Urine output is not well documented because the patient is incontinent. The patient did receive several doses of vancomycin but this has been discontinued. He is on Bactrim as well as ranitidine. He has been noted to be hypoxic at times. It study may have some underlying obstructive sleep apnea. Vital signs appear to have been stable. He has received maintenance IV fluids. Past Med Surg Social Fam HX - Past Medical History Medical history: GERD, seizures Psychiatric history: no psych history - Social History Smoking Status: Never smoker Smokeless Tobacco Status: No Alcohol use: none Drug use: none Medications and Allergies Gabapentin [Neurontin] 800 mg GTUBE BID 06/01/17 [History] Lactobacillus Acidophilus [Acidophilus] 1 cap GTUBE BID 06/01/17 [History] Multivit-Min/FA/Lycopen/Lutein [A Thru Z Select Multivit Tab] 1 tab GTUBE DAILY 06/01/17 [History] Polyethylene Glycol 3350 [MiraLAX] 17 gm PO DAILY 06/01/17 [History] Ranitidine HCl [Acid [employer]] 150 mg GTUBE HS 06/01/17 [History] Simethicone 80 mg GTUBE QID 06/01/17 [History] 3 Allergy/AdvReac Type Severity Reaction Status Date / Time levofloxacin [From Levaquin] Allergy See Verified 05/31/17 09:42 Comments meperidine [From Demerol] Allergy See Verified 05/31/17 09:42 Comments ondansetron Allergy See Verified 05/31/17 09:42 [From Zofran (as Comments hydrochloride)] Review of Systems ROS unobtainable: due to mental status Exam - Vital Signs Vital signs: Initial Vital Signs Temp Pulse Resp BP Pulse Ox 101.2 F H 119 20 141/112 92 05/31/17 16:55 05/31/17 16:55 05/31/17 16:55 05/31/17 16:55 05/31/17 16:55 Vital Signs - Last 8 Hours Temp Pulse Resp BP Pulse Ox 06/03/17 07:47 98.8 F 61 16 107/78 99 06/03/17 04:00 98.6 F 61 19 125/96 86 Intake and Output 06/02/17 06/03/17 06/03/17 23:59 07:59 15:59 Intake Total 100 / 100 1100 / 1100 Output Total 50 / 50 0 / 0 Balance 50 / 50 1100 / 1100 Intake: IV Fluids 100 / 100 1100 / 1100 0.9 % Sodium Chloride 1,000 ML 1000 / 1000 @ 100 mls/hr IVC .Q10H TIFFANY Rx#: [id number] Zosyn 3.375 GM In Dextrose 5% ( 100 / 100 100 / 100 Minibag+) 100 ML 100 ML @ 25 mls/hr IVPB Q8H TIFFANY Rx#: [id number] Oral 0 / 0 0 / 0 Output: Urine 0 / 0 0 / 0 Stool 50 / 50 Other: Meal Dinner Percent of Meal Consumed 0% # Urine Diapers 1 Blood Glucose* 90 - General Appearance Exam: The patient opens eyes in response to his name. He is nonverbal. He does not appear to be in any acute distress. Lungs essentially clear to auscultation. Occasionally the breath sounds are coarse. Heart regular rate and rhythm. Abdomen is soft. There is no guarding or rigidity. A colostomy is present. A PEG tube is also present. Currently the PEG tube is not being utilized. He does have deformities of both feet. He has contractures of his hands. He has some mild lower extremity swelling. Results - Lab Results 06/03/17 03:40 06/03/17 03:40 Most recent lab results ABG pH 7.40 pH Units (7.32-7.45) 05/31/17 21:13 ABG pCO2 38 mmHg (35-45) 05/31/17 21:13 ABG pO2 92 mmHg (85-104) 05/31/17 21:13 ABG HCO3 24 mEq/L (21-27) 05/31/17 21:13 ABG O2 Saturation 97 % (95-98) 05/31/17 21:13 Calcium 8.3 mg/dL (8.6-10.8) L 06/03/17 03:40 Consult Discharge Plan - Plan Referrals: Amy Serrato MD [Primary Care Provider] -
--- NOTE | 2017-06-03 08:15 | Pulmonology Progress Note ---
Date of Encounter: 06/03/17 Time of Encounter: 08:15 Assessment and Plan (1) Aspiration pneumonia due to food (regurgitated) Current Visit: Yes Status: Suspected Patient will need bronchopulmonary toileting spoke with RT to continue the hand held percussion . To continue broad spectrum antibiotics , his abdomen is distended he might have abdominal pain . GI following considering Endoscopy. Spoke with Primary team to speak with family regarding goals of care , patient is non verbal at baseline not sure whether he is in pain putting through all the procedures wont benefit him long run . Will suggest Palliative care involvement in coordinating with talks with family regarding goals of care . If he coughs up will send some samples. Qualifiers: Laterality: unspecified laterality Lung location: unspecified part of lung Qualified Code(s): J69.0 - Pneumonitis due to inhalation of food and vomit (2) PARKER (acute kidney injury) Current Visit: Yes Status: Acute Nephrology following Ultrasound retroperitoneum showed hydronephrosis due to renal calculi . Management according to Primary team. (3) Sleep disorder breathing Current Visit: Yes Status: Acute On Clinical exam and with desaturation pattern patient has sleep disordered breathing . Difficult to do PSG glaser PAP therapy . Patient will need nocturnal O2 supplementation as outpatient to ascertain nocturnal O2 needs . 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 Objective PUL Vital signs: Last Vital Signs Temp 98.8 F 06/03/17 07:47 Pulse 61 06/03/17 07:47 Resp 16 06/03/17 07:47 BP 107/78 06/03/17 07:47 Pulse Ox 99 06/03/17 07:47 General appearance: other (Patient wakes up when i called his name , he was yelling not sure he is having pain) Auscultation: bilateral: diminished breath sounds Gastrointestinal: hypoactive bowel sounds, other (distended abdomen) Gait: other (Patient has contractures on both upper and lower limb) other (Patient Neurology is at his baseline non verbal no new focal changes ) Results - Laboratory Findings CBC and BMP: 06/03/17 03:40 06/03/17 03:40 ABG ABG pH 7.40 pH Units (7.32-7.45) 05/31/17 21:13 ABG pCO2 38 mmHg (35-45) 05/31/17 21:13 ABG pO2 92 mmHg (85-104) 05/31/17 21:13 ABG O2 Saturation 97 % (95-98) 05/31/17 21:13 Abnormal lab findings: Abnormal lab results Hgb 12.7 g/dL (12.9-16.9) L 06/03/17 03:40 Plt Count 138 K/mcL (140-400) L 06/03/17 03:40 Potassium 3.3 mEq/L (3.5-4.5) L 06/03/17 03:40 Chloride 115 mEq/L (98-109) H 06/03/17 03:40 Creatinine 2.05 mg/dL (0.72-1.25) H D 06/03/17 03:40 Est GFR ( Amer) 45 (> 60) L 06/03/17 03:40 Est GFR (Non-Af Amer) 37 (> 60) L 06/03/17 03:40 POC Glucose 90 (58-89) H 06/03/17 06:20 Calcium 8.3 mg/dL (8.6-10.8) L 06/03/17 03:40 - Microbiology Findings Microbiology Findings: Microbiology, Last 48 Hours 05/31/17 20:41 Blood Culture - Preliminary Peripheral Venipuncture No growth. 05/31/17 20:41 Blood Culture - Preliminary Peripheral Venipuncture No growth. - Clinical Findings Intake & Output: Intake & Output 06/02/17 06/03/17 06/03/17 23:59 07:59 15:59 Intake Total 100 / 100 1100 / 1100 Output Total 50 / 50 0 / 0 Balance 50 / 50 1100 / 1100 Consult Discharge Plan - Plan Referrals: Amy Serrato MD [Primary Care Provider] -
[2017-06-03] MEDS: Ringers Solution, Lactated 1,000 ML IVC SCH (12:39)
[2017-06-03] MEDS: Pantoprazole 40 MG VIAL IVP SCH ×2 (12:40→21:09)
--- NOTE | 2017-06-03 15:21 | Internal Med Progress Note ---
<Orin Cox - Last Filed: 06/03/17 15:17> Date of Encounter: 06/03/17 Time of Encounter: 15:22 - Assessment and plan (1) Sepsis Current Visit: Yes Status: Acute Assessment and plan: SIRS criteria met with tachycardia and fever on admission MRSA UTI antibiotics changed to Zyvox Abdomen distended this morning even though tube feeds have been held due to mild drainage around G-tube stoma. CT abdomen/pelvis ordered. Abdomen/pelvis CT: New airspace disease in the dependent portions of the lower lobes, either secondary to atelectasis or pneumonia. No acute abnormality in the abdomen/pelvis. Nonobstructing 1.4 cm right renal calculus. Qualifiers: Sepsis type: sepsis due to unspecified organism Qualified Code(s): A41.9 - Sepsis, unspecified organism (2) Acute respiratory failure with hypoxia Current Visit: Yes Status: Acute Assessment and plan: currently on 2L via NC does not use home O2 (3) Aspiration pneumonia due to food (regurgitated) Current Visit: Yes Status: Suspected Assessment and plan: witnessed aspiration of G-tube feed into esophagus suspected aspiration pneumonia, although CT does not show focal consolidation would be healthcare associated pneumonia due to patient living at senior living blood culture preliminary no growth antibiotics changed to Zyvox for MRSA UTI Qualifiers: Laterality: unspecified laterality Lung location: unspecified part of lung Qualified Code(s): J69.0 - Pneumonitis due to inhalation of food and vomit (4) UTI (urinary tract infection) Current Visit: Yes Status: Acute Assessment and plan: MRSA UTI Zyvox Qualifiers: Urinary tract infection type: acute cystitis Hematuria presence: with hematuria Qualified Code(s): N30.01 - Acute cystitis with hematuria (5) Mucus plugging of bronchi Current Visit: Yes Status: Acute Assessment and plan: mucus plugging of bronchi, left lower lobe, seen on CT chest pulmonology consulted; appreciate recommendations bronchopulmonary toilet; RT to continue hand held percussion (6) PARKER (acute kidney injury) Current Visit: Yes Status: Acute Assessment and plan: Cr increased from 0.57 --> 1.27--> 2.05 nephrology consulted; appreciate recommendations jiménez catheter placed strict I/O's renal U/S: Right kidney 10.6 cm, left kidney 10.5 cm, 2 stones within the right kidney measuring up to 1.3 cm with associated hydronephrosis. (7) Decreased hemoglobin Current Visit: Yes Status: Acute Assessment and plan: dropped from 16.3--> 14.4--> 13.3--> 12.7 no obvious source of bleeding GI on board; appreciate recommendations - Subjective Interval history: Patient is nonverbal. No family members present. - Constitutional Vitals: Temp Pulse Resp BP Pulse Ox 99.2 F 54 14 132/91 98 06/03/17 12:00 06/03/17 12:00 06/03/17 12:00 06/03/17 12:00 06/03/17 12:00 General appearance: Present: mild distress - Head Head exam: Present: atraumatic, normocephalic - Eye Eye exam: Present: PERRL, conjuntiva pink, sclera anicteric Pupils: Present: PERRL - Neck Neck exam general surgery: Present: supple, trachea midline - Respiratory Respiratory exam: Present: rhonchi. Absent: wheezes, tachypnea Additional comments: on 2L supplemental O2, does not chronically use supplemental O2 - Cardiovascular Cardiovascular exam: Present: RRR, +S1, +S2. Absent: diastolic murmur, gallop, rubs, systolic murmur - GI/Abdominal GI/Abdominal exam: Present: distended, firm, normal bowel sounds, tenderness Additional comments: LUQ G-tube and LLQ colostomy in place - Extremities Exam Extremities exam: Present: warm. Absent: pedal edema Additional comments: contractures of all extremities, mainly focused at the hands and feet - Neurological Exam Additional comments: nonverbal at baseline, does not follow commands - Skin Skin exam: Present: dry, intact Internal Medicine: Result - Labs CBC & Chem 7: 06/03/17 03:40 06/03/17 03:40 Labs: Short CBC 06/03/17 Range/Units 03:40 WBC 8.5 (4.3-11.1) K/mcL Hgb 12.7 L (12.9-16.9) g/dL Hct 39.3 (37.5-50.1) % Plt Count 138 L (140-400) K/mcL Neutrophils # 6.1 (1.6-8.9) K/mcL BMP 06/03/17 03:40 Sodium 142 Potassium 3.3 L Chloride 115 H Carbon Dioxide 20 BUN 12 Creatinine 2.05 H D Glucose 90 Calcium 8.3 L - ABG Interpretation ABG results: ABG ABG pH 7.40 pH Units (7.32-7.45) 05/31/17 21:13 ABG pCO2 38 mmHg (35-45) 05/31/17 21:13 ABG pO2 92 mmHg (85-104) 05/31/17 21:13 ABG O2 Saturation 97 % (95-98) 05/31/17 21:13 - Impressions Impressions Abdomen/Pelvis CT 06/03/17 09:19 IMPRESSION: 1. New airspace disease in the dependent portions of the lower lobes, either secondary to atelectasis or pneumonia. 2. No acute abnormality in the abdomen/pelvis. 3. Nonobstructing 1.4 cm right renal calculus. 4. Status post partial left colonic resection, with diverting left lower quadrant colostomy. No evidence of bowel obstruction. D/ / 06/03/2017 11:32:51 Ahmet Pérez MD / [facility] Interpreting Provider: Ahmet Pérez MD Retroperitoneum Ultrasound 06/03/17 10:00 IMPRESSION: 2 right renal stones measuring up to 1.3 cm with associated mild hydronephrosis. D/ / Augusto Bishop MD / Augusto Bishop MD Interpreting Provider: Augusto Bishop MD Consult Discharge Plan - Plan Referrals: Amy Serrato MD [Primary Care Provider] - <Clemente Nowak - Last Filed: 06/03/17 18:20> Date of Encounter: 06/03/17 - Assessment and plan (1) Acute respiratory failure with hypoxia Current Visit: Yes Status: Acute (2) UTI (urinary tract infection) Current Visit: Yes Status: Acute Qualifiers: Urinary tract infection type: acute cystitis Hematuria presence: with hematuria Qualified Code(s): N30.01 - Acute cystitis with hematuria (3) PARKER (acute kidney injury) Current Visit: Yes Status: Acute (4) Aspiration pneumonia due to food (regurgitated) Current Visit: Yes Status: Suspected Qualifiers: Laterality: bilateral Lung location: lower lobe of lung Qualified Code(s) : J69.0 - Pneumonitis due to inhalation of food and vomit (5) Sepsis Current Visit: Yes Status: Acute Qualifiers: Sepsis type: sepsis due to unspecified organism Qualified Code(s): A41.9 - Sepsis, unspecified organism (6) Mucus plugging of bronchi Current Visit: Yes Status: Acute - Constitutional Vitals: Temp Pulse Resp BP Pulse Ox 100.3 F H 54 16 111/68 95 06/03/17 16:04 06/03/17 16:04 06/03/17 16:04 06/03/17 16:04 06/03/17 16:04 Internal Medicine: Result - Labs CBC & Chem 7: 06/03/17 03:40 06/03/17 03:40 Labs: Short CBC 06/03/17 Range/Units 03:40 WBC 8.5 (4.3-11.1) K/mcL Hgb 12.7 L (12.9-16.9) g/dL Hct 39.3 (37.5-50.1) % Plt Count 138 L (140-400) K/mcL Neutrophils # 6.1 (1.6-8.9) K/mcL BMP 06/03/17 03:40 Sodium 142 Potassium 3.3 L Chloride 115 H Carbon Dioxide 20 BUN 12 Creatinine 2.05 H D Glucose 90 Calcium 8.3 L - ABG Interpretation ABG results: ABG ABG pH 7.40 pH Units (7.32-7.45) 05/31/17 21:13 ABG pCO2 38 mmHg (35-45) 05/31/17 21:13 ABG pO2 92 mmHg (85-104) 05/31/17 21:13 ABG O2 Saturation 97 % (95-98) 05/31/17 21:13 - Impressions Impressions Abdomen/Pelvis CT 06/03/17 09:19 IMPRESSION: 1. New airspace disease in the dependent portions of the lower lobes, either secondary to atelectasis or pneumonia. 2. No acute abnormality in the abdomen/pelvis. 3. Nonobstructing 1.4 cm right renal calculus. 4. Status post partial left colonic resection, with diverting left lower quadrant colostomy. No evidence of bowel obstruction. D/ / 06/03/2017 11:32:51 Ahmet Pérez MD / [facility] Interpreting Provider: Ahmet Pérez MD Retroperitoneum Ultrasound 06/03/17 10:00 IMPRESSION: 2 right renal stones measuring up to 1.3 cm with associated mild hydronephrosis. D/ / Augusto Bishop MD / Augusto Bishop MD Interpreting Provider: Augusto Bishop MD - Attending Attestation I examined this patient and my medical decision-making was reviewed with the Resident Physician on 06/03/17. I agree with the documented findings, disposition and treatment plan as described except to the extent set forth below. Mr. Beck is currently admitted for MRSA UTI and possible aspiration. He remains moderate to high risk due to potential for worsening infectious status. Mr Beck is restless. He appears to be uncomfortable. His creatinine has worsened again today. No fever or chills noted. No diarrhea. Exam Alert. Nonverbal Restless and moans at times Heart reg - not tachy Mucus membranes dry Lungs clear currently Abd soft. Bowel sounds heard. ? tender - no peritoneal signs. I/P 1. PARKER - per nephro 2. Check CT abd/pelvis 3. If no endoscopy - restart tube feeds 4. Zyvox for MRSA UTI Further diagnoses and plan as above.
[2017-06-03] MEDS: *HR* Heparin 5,000 UNIT/ML VIAL SQ SCH (21:09)
[2017-06-04] MEDS: Ringers Solution, Lactated 1,000 ML IVC SCH ×2 (04:34→18:34)
[2017-06-04] MEDS: *HR* Heparin 5,000 UNIT/ML VIAL SQ SCH ×2 (05:43→19:59)
[2017-06-04 07:46] LABS: Basophils % 0.5 %; Eosinophils # 0.1 K/mcL (0.0-0.6); Eosinophils % 0.7 %; Hematocrit 41.8 % (37.5-50.1); Hemoglobin 13.6 g/dL (12.9-16.9); Immature Granulocytes % 0.5 % (0-4); Lymphocytes # 1.9 K/mcL (0.6-4.6); Lymphocytes % 22.4 %; Mean Corpuscular HGB Conc 32.5 g/dL (31.6-35.5); Mean Corpuscular Hemoglobin 29.4 pg (28.0-33.3); Mean Corpuscular Volume 90.5 fL (83.0-100.0); Mean Platelet Volume 12.7 fL (9.4-12.4); Monocytes % 11.8 %; Neutrophils # 5.4 K/mcL (1.6-8.9); Platelet Count 100 K/mcL (140-400); Red Blood Count 4.62 M/mcL (4.19-5.50); Red Cell Distribution Width 13.2 % (11.5-14.5); Segmented Neutrophils % 64.1 %
[2017-06-04 07:55] LABS: Albumin/Globulin Ratio 0.7 (1.1-2.2); Bilirubin,Total 0.9 mg/dL (0.2-1.2); Calcium 9.1 mg/dL (8.6-10.8); Globulin 4.2 g/dL (2.4-3.5); Potassium 3.2 mEq/L (3.5-4.5); Total Protein 7.2 g/dL (6.0-8.3)
--- NOTE | 2017-06-04 07:56 | Nephrology Progress Note ---
Date of Encounter: 06/04/17 Time of Encounter: 07:54 - Assessment and Plan (1) PARKER (acute kidney injury) Current Visit: Yes Status: Acute The patient has acute kidney injury which is nonoliguric. Unfortunately lab studies are not available today. If his renal function continues to worsen then I would suggest that we get a urological consult for the mild right hydronephrosis noted on the renal ultrasound. If his renal function improves then we can probably just continue to monitor the patient's renal function. (2) UTI (urinary tract infection) Current Visit: Yes Status: Acute Qualifiers: Urinary tract infection type: acute cystitis Hematuria presence: with hematuria Qualified Code(s): N30.01 - Acute cystitis with hematuria Subjective Principal diagnosis: aspirtaion pneumonia Interval history: Clinically the patient is unchanged. He remains nonverbal. A Piper catheter has been placed since yesterday. Urine output yesterday was recorded as 600 mL. This morning he is already put out 550 mL according to the medical record. Renal ultrasound shows renal calculi in the right kidney was some mild right hydronephrosis.. Unfortunately there is no lab studies available as of yet for today. Objective - Vital Signs Vital signs: Vital Signs Temp Pulse Resp BP Pulse Ox 06/04/17 05:58 99.4 F 66 17 117/78 95 06/03/17 22:10 99.6 F 52 18 115/79 95 06/03/17 21:00 95 06/03/17 16:04 100.3 F H 54 16 111/68 95 06/03/17 12:00 99.2 F 54 14 132/91 98 Intake and Output 06/03/17 06/03/17 06/04/17 15:59 23:59 07:59 Intake Total 300 / 300 1000 / 1000 Output Total 600 / 600 550 / 550 Balance -300 / -300 450 / 450 Intake: IV Fluids 300 / 300 1000 / 1000 Lactated Ringers 1,000 ML @ 100 1000 / 1000 mls/hr IVC .Q10H [facility] Rx#: [id number] Zyvox Premix 600mg/300mL 600 mg 300 / 300 In 300 ml @ 150 mls/hr IVPB Q12H [facility] Rx#:[id number] Free Water Intake Amount 0 / 0 0 / 0 Output: Catheter 600 / 600 550 / 550 Other: Stool Size Small Stool Consistency liquid Stool Characteristics Normal for Patient Stool Color Green # Urine Diapers 1 Blood Glucose* 79 95 116 - General Appearance Exam: Patient is alert. He is nonverbal. In no acute distress. Lungs coarse breath sounds. Heart regular rhythm. Abdomen is nontender. There is a colostomy and a PEG tube present. There are contractures of the hands. There is deformity of the patient's feet and ankles. There is minimal lower extremity swelling. A Piper catheter is in place draining clear yellow urine. - Lab 06/03/17 03:40 06/03/17 03:40 Most recent lab results ABG pH 7.40 pH Units (7.32-7.45) 05/31/17 21:13 ABG pCO2 38 mmHg (35-45) 05/31/17 21:13 ABG pO2 92 mmHg (85-104) 05/31/17 21:13 ABG HCO3 24 mEq/L (21-27) 05/31/17 21:13 ABG O2 Saturation 97 % (95-98) 05/31/17 21:13 Calcium 8.3 mg/dL (8.6-10.8) L 06/03/17 03:40 Consult Discharge Plan - Plan Referrals: Amy Serrato MD [Primary Care Provider] -
--- NOTE | 2017-06-04 08:13 | Pulmonology Progress Note ---
Date of Encounter: 06/04/17 Time of Encounter: 07:30 Assessment and Plan (1) Aspiration pneumonia due to food (regurgitated) Current Visit: Yes Status: Suspected Patient will need bronchopulmonary toileting spoke with RT to continue the hand held percussion . To continue broad spectrum antibiotics for 7 days . Will sign off call us with questions Qualifiers: Laterality: bilateral Lung location: lower lobe of lung Qualified Code(s) : J69.0 - Pneumonitis due to inhalation of food and vomit (2) PARKER (acute kidney injury) Current Visit: Yes Status: Acute Nephrology following Ultrasound retroperitoneum showed hydronephrosis due to renal calculi . Management according to Primary team. (3) Sleep disorder breathing Current Visit: Yes Status: Acute On Clinical exam and with desaturation pattern patient has sleep disordered breathing . Difficult to do PSG glaser PAP therapy . Patient will need nocturnal O2 supplementation. 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 Broncho pulmonary hygiene been given Objective PUL Vital signs: Last Vital Signs Temp 98.6 F 06/04/17 07:53 Pulse 65 06/04/17 07:53 Resp 14 06/04/17 07:53 BP 133/99 06/04/17 07:53 Pulse Ox 91 06/04/17 07:53 Auscultation: bilateral: diminished breath sounds (bilateral bibasilar breadth sounds) Extremities: other (baseline contractures ) other (Baseline non verbal ) Results - Laboratory Findings CBC and BMP: 06/04/17 06:51 06/04/17 06:51 ABG ABG pH 7.40 pH Units (7.32-7.45) 05/31/17 21:13 ABG pCO2 38 mmHg (35-45) 05/31/17 21:13 ABG pO2 92 mmHg (85-104) 05/31/17 21:13 ABG O2 Saturation 97 % (95-98) 05/31/17 21:13 Abnormal lab findings: Abnormal lab results Plt Count 100 K/mcL (140-400) L 06/04/17 06:51 MPV 12.7 fL (9.4-12.4) H 06/04/17 06:51 Potassium 3.2 mEq/L (3.5-4.5) L 06/04/17 06:51 Chloride 110 mEq/L (98-109) H 06/04/17 06:51 Creatinine 2.05 mg/dL (0.72-1.25) H 06/04/17 06:51 Est GFR ( Amer) 45 (> 60) L 06/04/17 06:51 Est GFR (Non-Af Amer) 37 (> 60) L 06/04/17 06:51 BUN/Creatinine Ratio 5 (6-26) L 06/04/17 06:51 Glucose 116 mg/dL (70-99) H 06/04/17 06:51 POC Glucose 122 (58-89) H 06/03/17 23:58 Albumin 3.0 g/dL (3.5-5.0) L 06/04/17 06:51 Globulin 4.2 g/dL (2.4-3.5) H 06/04/17 06:51 Albumin/Globulin Ratio 0.7 (1.1-2.2) L 06/04/17 06:51 - Microbiology Findings Microbiology Findings: Microbiology, Last 48 Hours 05/31/17 20:41 Blood Culture - Preliminary Peripheral Venipuncture No growth. 05/31/17 20:41 Blood Culture - Preliminary Peripheral Venipuncture No growth. - Clinical Findings Intake & Output: Intake & Output 06/03/17 06/04/17 06/04/17 23:59 07:59 15:59 Intake Total 300 / 300 1000 / 1000 Output Total 600 / 600 850 / 850 Balance -300 / -300 150 / 150 Consult Discharge Plan - Plan Referrals: Amy Serrato MD [Primary Care Provider] -
[2017-06-04] MEDS ORDERED: Potassium Chloride Elixir 20 MEQ/15 ML UDC GTUBE ONE (09:48)
[2017-06-04] MEDS: Pantoprazole 40 MG VIAL IVP SCH ×2 (11:33→22:38)
[2017-06-04] MEDS: Ampicillin/Sulbactam 1,500 MG in 0.9 % Sodium Chloride Mini Bag 100 ML IVPB SCH ×2 (11:35→18:36)
--- NOTE | 2017-06-04 18:38 | Internal Med Progress Note ---
Date of Encounter: 06/04/17 Time of Encounter: 10:00 - Assessment and plan (1) Acute respiratory failure with hypoxia Current Visit: Yes Status: Acute Assessment and plan: Will need home oxygen at night. Continue supplementation at this time. (2) UTI (urinary tract infection) Current Visit: Yes Status: Acute Assessment and plan: On Zyvox for MRSA UTI. Qualifiers: Urinary tract infection type: acute cystitis Hematuria presence: with hematuria Qualified Code(s): N30.01 - Acute cystitis with hematuria (3) Superficl phlebitis arm Current Visit: Yes Status: Acute Assessment and plan: Has phlebitis of LUE. (4) PARKER (acute kidney injury) Current Visit: Yes Status: Acute Assessment and plan: Cr remains 2.05. Continue current plan as per renal. IV fluids. (5) Aspiration pneumonia due to food (regurgitated) Current Visit: Yes Status: Suspected Assessment and plan: Restarted on IV Unasyn today due to low grade fever. Will complete course of abx. Qualifiers: Laterality: bilateral Lung location: lower lobe of lung Qualified Code(s) : J69.0 - Pneumonitis due to inhalation of food and vomit (6) Sepsis Current Visit: Yes Status: Acute Assessment and plan: Essentially unchanged. Qualifiers: Sepsis type: sepsis due to unspecified organism Qualified Code(s): A41.9 - Sepsis, unspecified organism (7) Mucus plugging of bronchi Current Visit: Yes Status: Acute Assessment and plan: mucus plugging of bronchi, left lower lobe, seen on CT chest pulmonology consulted; appreciate recommendations bronchopulmonary toilet; RT to continue hand held percussion - Subjective Interval history: Mr Beck is currently admitted for acute aspiration and PARKER. He has developed erythema and swelling iin LUE. He remains moderate to high risk due to potential for worsening renal status. Mr Beck has a swollen L arm. It is erythematous as well. Low grade fever overnight. Tolerating tube feeds. - Constitutional Vitals: Temp Pulse Resp BP Pulse Ox 99.1 F 102 20 125/91 94 06/04/17 16:25 06/04/17 16:25 06/04/17 16:25 06/04/17 16:25 06/04/17 16:25 General appearance: Present: mild distress Exam: Nonverbal - Head Head exam: Present: normocephalic - Eye Eye exam: Present: conjuntiva pink - ENT ENT exam: Present: mucous membranes moist - Respiratory Respiratory exam: Present: rhonchi - Cardiovascular Cardiovascular exam: Present: RRR. Absent: tachycardia - GI/Abdominal GI/Abdominal exam: Present: normal bowel sounds, soft. Absent: tenderness - Extremities Exam Additional comments: LUE with warmth, erythema and edema. - Neurological Exam Neurological exam: Present: alert - Skin Skin exam: Present: warm. Absent: rash Internal Medicine: Result - Labs CBC & Chem 7: 06/04/17 06:51 06/04/17 06:51 Labs: Short CBC 06/04/17 Range/Units 06:51 WBC 8.4 (4.3-11.1) K/mcL Hgb 13.6 (12.9-16.9) g/dL Hct 41.8 (37.5-50.1) % Plt Count 100 L (140-400) K/mcL Neutrophils # 5.4 (1.6-8.9) K/mcL BMP 06/04/17 06:51 Sodium 141 Potassium 3.2 L Chloride 110 H Carbon Dioxide 22 BUN 10 Creatinine 2.05 H Glucose 116 H Calcium 9.1 Liver Function 06/04/17 Range/Units 06:51 Total Bilirubin 0.9 (0.2-1.2) mg/dL AST 22 (5-34) Units/L ALT 38 (0-55) Units/L Alkaline Phosphatase 82 (38-126) Units/L Albumin 3.0 L (3.5-5.0) g/dL - ABG Interpretation ABG results: ABG ABG pH 7.40 pH Units (7.32-7.45) 05/31/17 21:13 ABG pCO2 38 mmHg (35-45) 05/31/17 21:13 ABG pO2 92 mmHg (85-104) 05/31/17 21:13 ABG O2 Saturation 97 % (95-98) 05/31/17 21:13 Consult Discharge Plan - Plan Referrals: Amy Serrato MD [Primary Care Provider] -
[2017-06-05] MEDS: Ampicillin/Sulbactam 1,500 MG in 0.9 % Sodium Chloride Mini Bag 100 ML IVPB SCH ×4 (00:23→18:29)
[2017-06-05] MEDS: *HR* Heparin 5,000 UNIT/ML VIAL SQ SCH ×2 (06:17→18:30)
[2017-06-05 09:07] LABS: Basophils % 0.3 %; Eosinophils # 0.1 K/mcL (0.0-0.6); Eosinophils % 0.8 %; Hematocrit 40.3 % (37.5-50.1); Hemoglobin 13.4 g/dL (12.9-16.9); Immature Granulocytes % 0.3 % (0-4); Immature Platelets 5.9 % (1.1-6.1); Lymphocytes # 1.6 K/mcL (0.6-4.6); Lymphocytes % 21.4 %; Mean Corpuscular HGB Conc 33.3 g/dL (31.6-35.5); Mean Corpuscular Hemoglobin 29.6 pg (28.0-33.3); Mean Platelet Volume 11.6 fL (9.4-12.4); Monocytes # 0.8 K/mcL (0.0-1.3); Monocytes % 10.9 %; Platelet Count 146 K/mcL (140-400); Red Blood Count 4.53 M/mcL (4.19-5.50); Red Cell Distribution Width 13.3 % (11.5-14.5); Segmented Neutrophils % 66.3 %
[2017-06-05] MEDS: Pantoprazole 40 MG VIAL IVP SCH ×2 (09:08→22:36)
[2017-06-05] MEDS: Ringers Solution, Lactated 1,000 ML IVC SCH ×2 (09:14→11:39)
[2017-06-05 09:23] LABS: Alanine Aminotransferase 27 Units/L (0-55); Albumin 2.9 g/dL (3.5-5.0); Albumin/Globulin Ratio 0.7 (1.1-2.2); Alkaline Phosphatase 89 Units/L (38-126); Aspartate Amino Transferase 23 Units/L (5-34); BUN/Creatinine Ratio 6 (6-26); Bilirubin,Total 0.8 mg/dL (0.2-1.2); Blood Urea Nitrogen 9 mg/dL (8-26); Carbon Dioxide 26 mEq/L (19-29); Chloride 109 mEq/L (98-109); Globulin 4.1 g/dL (2.4-3.5); Glucose 96 mg/dL (70-99); Osmolality,Calculated 293 (280-300); Potassium 3.3 mEq/L (3.5-4.5); Sodium 142 mEq/L (136-145); eGFR For African Americans > 60 (> 60); eGFR For Non-African Americans 50 (> 60)
[2017-06-05] MEDS ORDERED: Potassium Chloride Elixir 20 MEQ/15 ML UDC GTUBE ONE (11:38)
--- NOTE | 2017-06-05 18:16 | Internal Med Progress Note ---
Date of Encounter: 06/05/17 Time of Encounter: 11:20 - Assessment and plan (1) Acute respiratory failure with hypoxia Current Visit: Yes Status: Acute Assessment and plan: Weaning oxygen as above. Recheck CXR tomorrow. (2) Hypokalemia Current Visit: Yes Status: Acute Assessment and plan: Replace. Recheck tomorrow. (3) UTI (urinary tract infection) Current Visit: Yes Status: Acute Assessment and plan: On Zyvox for MRSA UTI. Qualifiers: Urinary tract infection type: acute cystitis Hematuria presence: with hematuria Qualified Code(s): N30.01 - Acute cystitis with hematuria (4) Superficl phlebitis arm Current Visit: Yes Status: Acute Assessment and plan: Has phlebitis of LUE. Warm compresses. (5) PARKER (acute kidney injury) Current Visit: Yes Status: Acute Assessment and plan: Creatinine somewhat improved today. Recheck tomorrow. (6) Aspiration pneumonia due to food (regurgitated) Current Visit: Yes Status: Suspected Assessment and plan: Currently on IV Unasyn at this time and seems to be doing a little better. Qualifiers: Laterality: bilateral Lung location: lower lobe of lung Qualified Code(s) : J69.0 - Pneumonitis due to inhalation of food and vomit (7) Sepsis Current Visit: Yes Status: Acute Assessment and plan: Essentially unchanged. Qualifiers: Sepsis type: sepsis due to unspecified organism Qualified Code(s): A41.9 - Sepsis, unspecified organism (8) Mucus plugging of bronchi Current Visit: Yes Status: Acute Assessment and plan: mucus plugging of bronchi, left lower lobe, seen on CT chest pulmonology consulted; appreciate recommendations bronchopulmonary toilet; RT to continue hand held percussion - Subjective Interval history: Mr Beck is currently admitted for acute aspiration and PARKER. He has developed erythema and swelling in LUE. He remains moderate to high risk due to potential for worsening renal status. Mr Beck arm seems somewhat better today though still is swollen. His creatinine is improving some. He seems more alert as well. No fever or chills. - Constitutional Vitals: Temp Pulse Resp BP Pulse Ox 97.7 F 58 22 80/63 91 06/05/17 15:32 06/05/17 15:32 06/05/17 15:32 06/05/17 15:32 06/05/17 15:32 General appearance: Present: A&O X 0 - Head Head exam: Present: normocephalic - Eye Eye exam: Present: conjuntiva pink - ENT ENT exam: Present: mucous membranes moist - Respiratory Respiratory exam: Present: decreased breath sounds, rhonchi - Cardiovascular Cardiovascular exam: Present: RRR. Absent: tachycardia - GI/Abdominal GI/Abdominal exam: Present: soft. Absent: tenderness - Extremities Exam Extremities exam: Present: warm - Neurological Exam Neurological exam: Present: alert Internal Medicine: Result - Labs CBC & Chem 7: 06/05/17 08:42 06/05/17 08:42 Labs: Short CBC 06/05/17 Range/Units 08:42 WBC 7.6 (4.3-11.1) K/mcL Hgb 13.4 (12.9-16.9) g/dL Hct 40.3 (37.5-50.1) % Plt Count 146 (140-400) K/mcL Neutrophils # 5.0 (1.6-8.9) K/mcL BMP 06/05/17 08:42 Sodium 142 Potassium 3.3 L Chloride 109 Carbon Dioxide 26 BUN 9 Creatinine 1.59 H Glucose 96 Calcium 9.0 Liver Function 06/05/17 Range/Units 08:42 Total Bilirubin 0.8 (0.2-1.2) mg/dL AST 23 (5-34) Units/L ALT 27 (0-55) Units/L Alkaline Phosphatase 89 (38-126) Units/L Albumin 2.9 L (3.5-5.0) g/dL - ABG Interpretation ABG results: ABG ABG pH 7.40 pH Units (7.32-7.45) 05/31/17 21:13 ABG pCO2 38 mmHg (35-45) 05/31/17 21:13 ABG pO2 92 mmHg (85-104) 05/31/17 21:13 ABG O2 Saturation 97 % (95-98) 05/31/17 21:13 Consult Discharge Plan - Plan Referrals: Amy Serrato MD [Primary Care Provider] -
[2017-06-05] MEDS ORDERED: Simethicone 40 MG/0.6 ML MLS GTUBE SCH (21:00)
[2017-06-05] MEDS: Lactobacillus 1 EACH CAP.SPRINK GTUBE SCH (22:36)
[2017-06-05] MEDS: Gabapentin 400 MG CAPSULE PO SCH (22:36)
[2017-06-05] MEDS: Simethicone 40 MG/0.6 ML MLS GTUBE SCH (22:57)
[2017-06-06] MEDS: Ampicillin/Sulbactam 1,500 MG in 0.9 % Sodium Chloride Mini Bag 100 ML IVPB SCH ×4 (00:58→17:11)
[2017-06-06 05:17] LABS: BUN/Creatinine Ratio 7 (6-26); Blood Urea Nitrogen 10 mg/dL (8-26); Calcium 8.8 mg/dL (8.6-10.8); Carbon Dioxide 26 mEq/L (19-29); Chloride 108 mEq/L (98-109); Glucose 122 mg/dL (70-99); Osmolality,Calculated 294 (280-300); Potassium 3.4 mEq/L (3.5-4.5); Sodium 142 mEq/L (136-145); eGFR For African Americans > 60 (> 60); eGFR For Non-African Americans > 60 (> 60)
[2017-06-06] MEDS: *HR* Heparin 5,000 UNIT/ML VIAL SQ SCH ×2 (05:46→17:11)
[2017-06-06 05:51] LABS: Basophils % 0.5 %; Eosinophils # 0.2 K/mcL (0.0-0.6); Hematocrit 40.8 % (37.5-50.1); Hemoglobin 13.1 g/dL (12.9-16.9); Immature Granulocytes % 0.3 % (0-4); Lymphocytes # 1.8 K/mcL (0.6-4.6); Lymphocytes % 27.6 %; Mean Corpuscular HGB Conc 32.1 g/dL (31.6-35.5); Mean Corpuscular Volume 90.3 fL (83.0-100.0); Mean Platelet Volume 12.1 fL (9.4-12.4); Monocytes # 0.7 K/mcL (0.0-1.3); Monocytes % 11.1 %; Neutrophils # 3.7 K/mcL (1.6-8.9); Platelet Count 155 K/mcL (140-400); Red Blood Count 4.52 M/mcL (4.19-5.50); Red Cell Distribution Width 13.1 % (11.5-14.5); Segmented Neutrophils % 57.5 %
[2017-06-06] MEDS ORDERED: Potassium Chloride 20 MEQ, Lidocaine 1% 2 ML in D5% in Water 250 ML IVPB ONE (08:20)
[2017-06-06] MEDS ORDERED: Potassium Effervescent 25 MEQ TABLET.EFF GTUBE ONE (08:21)
[2017-06-06] MEDS: Ringers Solution, Lactated 1,000 ML IVC SCH ×3 (10:39→14:13)
[2017-06-06] MEDS: Pantoprazole 40 MG VIAL IVP SCH ×2 (10:47→10:48)
[2017-06-06] MEDS: Gabapentin 400 MG CAPSULE PO SCH ×2 (10:47→21:55)
[2017-06-06] MEDS: Multivitamin Liquid 15 ML UDC GTUBE SCH (10:47)
[2017-06-06] MEDS: Lactobacillus 1 EACH CAP.SPRINK GTUBE SCH ×2 (10:47→21:55)
[2017-06-06] MEDS: Simethicone 40 MG/0.6 ML MLS GTUBE SCH ×4 (10:47→21:56)
--- NOTE | 2017-06-06 12:28 | Nephrology Progress Note ---
Date of Encounter: 06/06/17 Time of Encounter: 12:05 - Assessment and Plan (1) PARKER (acute kidney injury) Current Visit: Yes Status: Acute Nonoliguric PARKER. Renal fct improving. Creat 1.34. Tube feeds continue, will decrease IV fluids to 50 cc/hr. Subjective Principal diagnosis: aspirtaion pneumonia Interval history: Laying in bed. Awake , making nonsensical sounds. Enteral tube feeds. IV fluids LR 100 cc/hr. Objective - Vital Signs Vital signs: Vital Signs Temp Pulse Resp BP Pulse Ox 06/06/17 12:03 98.6 F 74 16 113/80 96 06/06/17 08:00 98.6 F 66 16 113/72 86 06/06/17 06:00 98.8 F 47 25 117/83 98 06/05/17 19:00 100.4 F H 51 22 130/91 91 06/05/17 18:13 140/94 06/05/17 15:32 97.7 F 58 22 80/63 91 Intake and Output 06/05/17 06/06/17 06/06/17 23:59 07:59 15:59 Intake Total 1150 / 1150 500 / 500 75 / 75 Output Total 700 / 700 1100 / 1100 Balance 450 / 450 500 / 500 -1025 / -1025 Intake: IV Fluids 1000 / 1000 500 / 500 Lactated Ringers 1,000 ML @ 100 900 / 900 mls/hr IVC .Q10H [facility] Rx#: [id number] Unasyn 1,500 mg In 0.9 % Sodium 100 / 100 200 / 200 Chloride (Mini-Bag +) 100 ML @ 200 mls/hr IVPB Q6HR [facility] Rx#: [id number] Zyvox Premix 600mg/300mL 600 mg 300 / 300 In 300 ml @ 150 mls/hr IVPB Q12H [facility] Rx#:[id number] Oral 0 / 0 0 / 0 Free Water Intake Amount 150 / 150 75 / 75 Output: Catheter 700 / 700 1100 / 1100 Other: Meal Breakfast Percent of Meal Consumed 0% Weight 64.7 kg Blood Glucose* 115 121 137 Patient Weight 06/06/17 23:59 Weight 64.7 kg - General Appearance General appearance: Present: well-nourished, chronically ill EENT: Present: mucous membranes moist Neck: Present: no JVD Respiratory: Present: clear Cardiology: Present: no edema, regular rate, regular rhythm Gastrointestinal: Present: normoactive bowel sounds, no tenderness Integumentary: Present: warm and dry - Lab 06/06/17 04:43 06/06/17 04:43 Most recent lab results ABG pH 7.40 pH Units (7.32-7.45) 05/31/17 21:13 ABG pCO2 38 mmHg (35-45) 05/31/17 21:13 ABG pO2 92 mmHg (85-104) 05/31/17 21:13 ABG HCO3 24 mEq/L (21-27) 05/31/17 21:13 ABG O2 Saturation 97 % (95-98) 05/31/17 21:13 Calcium 8.8 mg/dL (8.6-10.8) 06/06/17 04:43 Magnesium 1.2 mg/dL (1.6-2.6) L 06/06/17 04:43 Consult Discharge Plan - Plan Referrals: Amy Serrato MD [Primary Care Provider] -
[2017-06-06] MEDS ORDERED: Magnesium Sulfate 2 GM in D5% in Water 100 ML IVPB ONE (13:16)
--- NOTE | 2017-06-06 16:31 | Internal Med Progress Note ---
Date of Encounter: 06/06/17 Time of Encounter: 14:00 - Assessment and plan (1) Acute respiratory failure with hypoxia Current Visit: Yes Status: Acute Assessment and plan: Remains on oxygen. CXR today. Wean as able. Will ask palliative to assist in discussing goals of care with family, etc. (2) Hypokalemia Current Visit: Yes Status: Acute Assessment and plan: Low again today. Replace. (3) Hypomagnesemia Current Visit: Yes Status: Acute Assessment and plan: Replace today. Recheck in AM. (4) UTI (urinary tract infection) Current Visit: Yes Status: Acute Assessment and plan: On Zyvox for MRSA UTI. Blood cx negative. Qualifiers: Urinary tract infection type: acute cystitis Hematuria presence: with hematuria Qualified Code(s): N30.01 - Acute cystitis with hematuria (5) Superficl phlebitis arm Current Visit: Yes Status: Acute Assessment and plan: Has phlebitis of LUE. Warm compresses. (6) PARKER (acute kidney injury) Current Visit: Yes Status: Acute Assessment and plan: Continues to slowly improve with fluids. (7) Aspiration pneumonia due to food (regurgitated) Current Visit: Yes Status: Suspected Assessment and plan: Currently on IV Unasyn. Will continue IV abx and recheck CXR. May need CT if unable to fully assess. Qualifiers: Laterality: bilateral Lung location: lower lobe of lung Qualified Code(s) : J69.0 - Pneumonitis due to inhalation of food and vomit (8) Sepsis Current Visit: Yes Status: Acute Assessment and plan: Essentially unchanged. Qualifiers: Sepsis type: sepsis due to unspecified organism Qualified Code(s): A41.9 - Sepsis, unspecified organism (9) Mucus plugging of bronchi Current Visit: Yes Status: Acute Assessment and plan: mucus plugging of bronchi, left lower lobe, seen on CT chest pulmonology consulted; appreciate recommendations bronchopulmonary toilet; RT to continue hand held percussion - Subjective Interval history: Mr Beck is currently admitted for acute aspiration and PARKER. He has developed erythema and swelling in LUE. He remains moderate to high risk due to potential for worsening renal status. Mr Beck was febrile again last night. He does not like to sit up in bed and ends up lying flat. Appears to be continuing to aspirate some. No fever now. Seems to be uncomfortable when moved. - Constitutional Vitals: Temp Pulse Resp BP Pulse Ox 98.7 F 55 16 130/86 98 06/06/17 15:58 06/06/17 15:58 06/06/17 15:58 06/06/17 15:58 06/06/17 15:58 General appearance: Present: A&O X 0 - Head Head exam: Present: normocephalic - Eye Eye exam: Present: conjuntiva pink - ENT ENT exam: Present: mucous membranes moist - Respiratory Respiratory exam: Present: rhonchi. Absent: rales, wheezes - Cardiovascular Cardiovascular exam: Present: RRR. Absent: tachycardia - GI/Abdominal GI/Abdominal exam: Present: soft. Absent: tenderness - Extremities Exam Extremities exam: Present: warm Additional comments: LUE less edematous and erythematous. - Neurological Exam Neurological exam: Present: alert - Skin Skin exam: Present: dry, warm Internal Medicine: Result - Labs CBC & Chem 7: 06/06/17 04:43 06/06/17 04:43 Labs: Short CBC 06/06/17 Range/Units 04:43 WBC 6.4 (4.3-11.1) K/mcL Hgb 13.1 (12.9-16.9) g/dL Hct 40.8 (37.5-50.1) % Plt Count 155 (140-400) K/mcL Neutrophils # 3.7 (1.6-8.9) K/mcL BMP 06/06/17 04:43 Sodium 142 Potassium 3.4 L Chloride 108 Carbon Dioxide 26 BUN 10 Creatinine 1.34 H Glucose 122 H Calcium 8.8 - ABG Interpretation ABG results: ABG ABG pH 7.40 pH Units (7.32-7.45) 05/31/17 21:13 ABG pCO2 38 mmHg (35-45) 05/31/17 21:13 ABG pO2 92 mmHg (85-104) 05/31/17 21:13 ABG O2 Saturation 97 % (95-98) 05/31/17 21:13 Consult Discharge Plan - Plan Referrals: Amy Serrato MD [Primary Care Provider] -
[2017-06-07] MEDS: Ampicillin/Sulbactam 1,500 MG in 0.9 % Sodium Chloride Mini Bag 100 ML IVPB SCH ×4 (00:24→18:55)
[2017-06-07 04:02] LABS: Basophils % 0.6 %; Eosinophils # 0.3 K/mcL (0.0-0.6); Eosinophils % 4.8 %; Hematocrit 38.4 % (37.5-50.1); Hemoglobin 12.7 g/dL (12.9-16.9); Immature Granulocytes % 0.3 % (0-4); Immature Platelets 8.2 % (1.1-6.1); Lymphocytes # 2.2 K/mcL (0.6-4.6); Lymphocytes % 30.4 %; Mean Corpuscular HGB Conc 33.1 g/dL (31.6-35.5); Mean Corpuscular Hemoglobin 29.6 pg (28.0-33.3); Mean Corpuscular Volume 89.5 fL (83.0-100.0); Mean Platelet Volume 11.9 fL (9.4-12.4); Monocytes # 0.6 K/mcL (0.0-1.3); Monocytes % 8.7 %; Neutrophils # 3.9 K/mcL (1.6-8.9); Platelet Count 168 K/mcL (140-400); Red Blood Count 4.29 M/mcL (4.19-5.50); Red Cell Distribution Width 13.1 % (11.5-14.5); Segmented Neutrophils % 55.2 %
[2017-06-07 04:17] LABS: BUN/Creatinine Ratio 9 (6-26); Blood Urea Nitrogen 10 mg/dL (8-26); Calcium 8.6 mg/dL (8.6-10.8); Carbon Dioxide 25 mEq/L (19-29); Chloride 105 mEq/L (98-109); Glucose 90 mg/dL (70-99); Osmolality,Calculated 289 (280-300); Potassium 3.7 mEq/L (3.5-4.5); Sodium 140 mEq/L (136-145); eGFR For African Americans > 60 (> 60); eGFR For Non-African Americans > 60 (> 60)
[2017-06-07] MEDS ORDERED: D5% in Water 0 ML ONE (05:06)
[2017-06-07] MEDS: *HR* Heparin 5,000 UNIT/ML VIAL SQ SCH ×2 (05:10→18:55)
--- NOTE | 2017-06-07 08:12 | Event Note ---
Date of Encounter: 06/07/17 Time of Encounter: 08:12 The patient's renal function continues to improve. Nephrology will sign off. Please call again if needed.
[2017-06-07] MEDS: Pantoprazole 40 MG VIAL IVP SCH ×2 (09:02→22:49)
[2017-06-07] MEDS: Multivitamin Liquid 15 ML UDC GTUBE SCH (09:03)
[2017-06-07] MEDS: Lactobacillus 1 EACH CAP.SPRINK GTUBE SCH ×2 (09:03→22:49)
[2017-06-07] MEDS: Gabapentin 400 MG CAPSULE PO SCH ×2 (09:03→22:49)
[2017-06-07] MEDS: Ringers Solution, Lactated 1,000 ML IVC SCH (09:09)
--- NOTE | 2017-06-07 10:45 | Palliative - Consult Note ---
Date of Encounter: 06/07/17 Time of Encounter: 10:40 - Assessment and Plan (1) Dyspnea Current Visit: Yes Status: Acute Assessment and plan: Patient doing well at this time on supportive oxygen. Continues treatment for pneumonia Receiving neb/IV antibiotics per hospitalist. Monitor Qualifiers: Dyspnea type: unspecified Qualified Code(s): R06.00 - Dyspnea, unspecified (2) Counseling regarding advanced care planning and goals of care Current Visit: Yes Status: Acute Assessment and plan: No family present at this time. Nurse to call me when they arrive. (3) Sepsis Current Visit: Yes Status: Acute Qualifiers: Sepsis type: sepsis due to unspecified organism Qualified Code(s): A41.9 - Sepsis, unspecified organism (4) Aspiration pneumonia due to food (regurgitated) Current Visit: Yes Status: Suspected Qualifiers: Laterality: bilateral Lung location: lower lobe of lung Qualified Code(s) : J69.0 - Pneumonitis due to inhalation of food and vomit Palliative-CN HPI - Data of Consult Consult date: 06/07/17 Requesting Physician: Cory Salcedo MD Primary Care Provider: Amy Serrato - Consult Narrative History of present illness: Mr. Beck is a 36 year old MRDD male who was admitted and has been treated for aspiration pneumonia. He is a resident of [facility]. Staff reportedly found him hypoxic and he had tube feeding coming from his mouth. Family was contacted and he was transported to ED. He has been in the hospital now for a week with treatment for pneumonia as well as previously being treated for a MRSA UTI. This am, no leukocytosis, afebrile, CXR appears to be improving with treatment. Chronic health problems include GERD and seizures. Upon my visit, pt is nonverbal, but smiles when he is spoken to. Does not appear to be in any distress. Tube feedings infusing per PEG. Hands and feet with some contractures. No family present. CC: Cory Salcedo MD Past Med Surg Social Fam HX - Past Medical History Medical history: GERD, seizures Psychiatric history: no psych history - Social History Smoking Status: Never smoker Smokeless Tobacco Status: No Alcohol use: none Drug use: none Medications and Allergies Gabapentin [Neurontin] 800 mg GTUBE BID 06/01/17 [History] Lactobacillus Acidophilus [Acidophilus] 1 cap GTUBE BID 06/01/17 [History] Multivit-Min/FA/Lycopen/Lutein [A Thru Z Select Multivit Tab] 1 tab GTUBE DAILY 06/01/17 [History] Polyethylene Glycol 3350 [MiraLAX] 17 gm PO DAILY 06/01/17 [History] Ranitidine HCl [Acid Orchestra Director] 150 mg GTUBE HS 06/01/17 [History] Simethicone 80 mg GTUBE QID 06/01/17 [History] 3 Allergy/AdvReac Type Severity Reaction Status Date / Time levofloxacin [From Levaquin] Allergy See Verified 05/31/17 09:42 Comments meperidine [From Demerol] Allergy See Verified 05/31/17 09:42 Comments ondansetron Allergy See Verified 05/31/17 09:42 [From Zofran (as Comments hydrochloride)] ROS unobtainable: due to mental status Palliative Care-Exam - Constitutional Vitals: Temp Pulse Resp BP Pulse Ox 98.7 F 64 22 142/115 99 06/07/17 07:16 06/07/17 07:16 06/07/17 07:16 06/07/17 07:16 06/07/17 07:16 General appearance: Present: no acute distress - Head Head Exam: Present: normal inspection, normocephalic - Eye Eye exam: Present: normal appearance, PERRL - Respiratory Respiratory exam: Present: decreased breath sounds, CTAB - Cardiovascular Cardiovascular exam: Present: +S1, +S2 - GI/Abdominal Exam GI/Abdominal exam: Present: normal bowel sounds, soft additional comments: Peg intact with feedings - Extremities Exam Additional comments: Feet contracted bilaterally - Neurological Exam Neurological exam: Present: alert Additional comments: Smiles when spoken to. No verbal response. Unable to follow commands - Skin Skin exam: Present: dry, warm Internal Medicine - CN: Reslt - Labs CBC & Chem 7: 06/07/17 03:36 06/07/17 03:36 Labs: Short CBC 06/07/17 Range/Units 03:36 WBC 7.1 (4.3-11.1) K/mcL Hgb 12.7 L (12.9-16.9) g/dL Hct 38.4 (37.5-50.1) % Plt Count 168 (140-400) K/mcL Neutrophils # 3.9 (1.6-8.9) K/mcL BMP 06/07/17 03:36 Sodium 140 Potassium 3.7 Chloride 105 Carbon Dioxide 25 BUN 10 Creatinine 1.14 Glucose 90 Calcium 8.6 - ABG Interpretation ABG results: ABG ABG pH 7.40 pH Units (7.32-7.45) 05/31/17 21:13 ABG pCO2 38 mmHg (35-45) 05/31/17 21:13 ABG pO2 92 mmHg (85-104) 05/31/17 21:13 ABG O2 Saturation 97 % (95-98) 05/31/17 21:13 - Impressions Impressions Chest X-Ray 06/06/17 16:36 IMPRESSION: Low lung volumes without acute cardiopulmonary disease. D/ / Eliu Tian MD / Eliu Tian MD Interpreting Provider: Eliu Tian MD Consult Discharge Plan - Plan Referrals: Amy Serrato MD [Primary Care Provider] - Palliative Quality Palliative Quality: Screen for Code Status: NA (Awaiting family arrival), Screen for Goals of Care: NA, Screen for Pain: Yes, If Pain Regimen Started, Initiate Bowel Regimen: NA, Screen for Nausea/Vomitting: Yes Code Status: 05/31/17 18:10 Resuscitation Status: Active [RES] Routine Comment: Resuscitation Status: Full Code
--- NOTE | 2017-06-07 13:19 | Event Note ---
Date of Encounter: 06/07/17 Time of Encounter: 13:10 Ii have spoken with both pt stepfather, Wai, and his mother, Nena via telephone. Wai unable to come in today, and mother Nena is currently in [place] at their other home and will be returning to [facility] this weekend. Discussed current clinical status, goals of care, and code status. Nena states that this is pt first aspiration event, and states she desires to continue treatment as needed for infection, and to return [place] [facility] [place]. Both Nena and Wai state that they do not want heroic measures in the event of cardiac arrest. They both state he has far outlived what was expected and that he has been "put through a lot". Asked specifically if they would want intubation, for another pneumonia or other event if he has resp distress, and they both stated "No, please do not put him on a ventilator." Discussed getting orders in place for DNR/DNI, and both agreed. Completed state form and placed copies in record here. D/W Nena, when she returns from [place], she should obtain copy of DNR form from here, if still admitted, or from [facility]. She verbalized understanding. We also discussed, that if/when he has frequent bouts of aspiration, they may want to have hospice evaluate him at [facility] and see if he is eligible for enrollment.
--- NOTE | 2017-06-07 17:48 | Internal Med Progress Note ---
Date of Encounter: 06/07/17 Time of Encounter: 17:42 - Assessment and plan (1) Acute respiratory failure with hypoxia Current Visit: Yes Status: Acute Assessment and plan: still on oxygen cont Abx CXR : no obvious PNA Will continue support. (2) Aspiration pneumonia due to food (regurgitated) Current Visit: Yes Status: Suspected Assessment and plan: will continue Unasyn will talk to family tomorrow palliative on board Qualifiers: Laterality: bilateral Lung location: lower lobe of lung Qualified Code(s) : J69.0 - Pneumonitis due to inhalation of food and vomit (3) Hypokalemia Current Visit: Yes Status: Acute Assessment and plan: resolved. (4) Hypomagnesemia Current Visit: Yes Status: Acute Assessment and plan: resolved - Subjective Interval history: seen and examined. chart reviewed. lying in bed does not appear to be in pain. - Constitutional Vitals: Temp Pulse Resp BP Pulse Ox 98.7 F 53 12 124/88 98 06/07/17 15:55 06/07/17 15:55 06/07/17 15:55 06/07/17 15:55 06/07/17 15:55 General appearance: Present: A&O X 0 - Head Head exam: Present: atraumatic, normocephalic - Eye Eye exam: Present: PERRL, conjuntiva pink, sclera anicteric Pupils: Present: PERRL - Neck Neck exam general surgery: Present: supple, trachea midline. Absent: lymphadenopathy - Respiratory Respiratory exam: Present: CTAB. Absent: accessory muscle use, rales, rhonchi, wheezes - Cardiovascular Cardiovascular exam: Present: RRR, +S1, +S2. Absent: diastolic murmur, gallop, rubs, systolic murmur - GI/Abdominal GI/Abdominal exam: Present: normal bowel sounds, soft, no peritoneal signs. Absent: distended, tenderness - Extremities Exam Extremities exam: Present: warm, radial pulses palpable and symmetrical. Absent : calf tenderness, cyanotic, pedal edema - Neurological Exam Neurological exam: Present: CN II-XII intact, oriented X3, no focal deficits. Absent: pronater drift, facial droop, speech deficit - Skin Skin exam: Present: dry, intact Internal Medicine: Result - Labs CBC & Chem 7: 06/07/17 03:36 06/07/17 03:36 Labs: Short CBC 06/07/17 Range/Units 03:36 WBC 7.1 (4.3-11.1) K/mcL Hgb 12.7 L (12.9-16.9) g/dL Hct 38.4 (37.5-50.1) % Plt Count 168 (140-400) K/mcL Neutrophils # 3.9 (1.6-8.9) K/mcL BMP 06/07/17 03:36 Sodium 140 Potassium 3.7 Chloride 105 Carbon Dioxide 25 BUN 10 Creatinine 1.14 Glucose 90 Calcium 8.6 - ABG Interpretation ABG results: ABG ABG pH 7.40 pH Units (7.32-7.45) 05/31/17 21:13 ABG pCO2 38 mmHg (35-45) 05/31/17 21:13 ABG pO2 92 mmHg (85-104) 05/31/17 21:13 ABG O2 Saturation 97 % (95-98) 05/31/17 21:13 - Impressions Impressions Chest X-Ray 06/06/17 16:36 IMPRESSION: Low lung volumes without acute cardiopulmonary disease. D/ / Eliu Tian MD / Eliu Tian MD Interpreting Provider: Eliu Tian MD Consult Discharge Plan - Plan Referrals: Amy Serrato MD [Primary Care Provider] -
[2017-06-07] MEDS: Simethicone 40 MG/0.6 ML MLS GTUBE SCH ×3 (18:41→22:51)
[2017-06-08] MEDS: Ampicillin/Sulbactam 1,500 MG in 0.9 % Sodium Chloride Mini Bag 100 ML IVPB SCH ×4 (01:02→16:37)
[2017-06-08] MEDS: Ringers Solution, Lactated 1,000 ML IVC SCH (03:29)
[2017-06-08] MEDS: *HR* Heparin 5,000 UNIT/ML VIAL SQ SCH ×2 (05:25→16:36)
[2017-06-08 06:47] LABS: Basophils % 0.6 %; Eosinophils # 0.4 K/mcL (0.0-0.6); Eosinophils % 5.6 %; Hematocrit 40.6 % (37.5-50.1); Hemoglobin 13.7 g/dL (12.9-16.9); Immature Granulocytes % 0.3 % (0-4); Lymphocytes # 2.5 K/mcL (0.6-4.6); Lymphocytes % 34.4 %; Mean Corpuscular HGB Conc 33.7 g/dL (31.6-35.5); Mean Corpuscular Hemoglobin 29.7 pg (28.0-33.3); Mean Corpuscular Volume 88.1 fL (83.0-100.0); Mean Platelet Volume 11.7 fL (9.4-12.4); Monocytes # 0.6 K/mcL (0.0-1.3); Monocytes % 8.3 %; Neutrophils # 3.6 K/mcL (1.6-8.9); Platelet Count 176 K/mcL (140-400); Red Blood Count 4.61 M/mcL (4.19-5.50); Red Cell Distribution Width 13.1 % (11.5-14.5); Segmented Neutrophils % 50.8 %
[2017-06-08 07:06] LABS: BUN/Creatinine Ratio 11 (6-26); Blood Urea Nitrogen 11 mg/dL (8-26); Calcium 8.7 mg/dL (8.6-10.8); Carbon Dioxide 24 mEq/L (19-29); Chloride 107 mEq/L (98-109); Glucose 95 mg/dL (70-99); Osmolality,Calculated 285 (280-300); Sodium 138 mEq/L (136-145); eGFR For African Americans > 60 (> 60); eGFR For Non-African Americans > 60 (> 60)
[2017-06-08] MEDS: Multivitamin Liquid 15 ML UDC GTUBE SCH (08:45)
[2017-06-08] MEDS: Lactobacillus 1 EACH CAP.SPRINK GTUBE SCH ×2 (08:46→23:37)
[2017-06-08] MEDS: Pantoprazole 40 MG VIAL IVP SCH ×2 (08:46→23:37)
[2017-06-08] MEDS: Gabapentin 400 MG CAPSULE PO SCH ×2 (08:46→23:37)
[2017-06-08] MEDS: Simethicone 40 MG/0.6 ML MLS GTUBE SCH ×4 (08:47→23:38)
--- NOTE | 2017-06-08 10:12 | Palliative Progress Note ---
Date of Encounter: 06/08/17 Time of Encounter: 10:10 - Assessment and plan (1) Dyspnea Current Visit: Yes Status: Acute Assessment and plan: Appears stable. Resp appear easy and reg. O2 saturations 98%. Improving with treatment for pneumonia. Qualifiers: Dyspnea type: unspecified Qualified Code(s): R06.00 - Dyspnea, unspecified (2) Counseling regarding advanced care planning and goals of care Current Visit: Yes Status: Acute Assessment and plan: DNR/DNI established yesterday. Patient is return to [facility] upon discharge. D/W Dr. Salcedo (3) Sepsis Current Visit: Yes Status: Acute Qualifiers: Sepsis type: sepsis due to unspecified organism Qualified Code(s): A41.9 - Sepsis, unspecified organism (4) Aspiration pneumonia due to food (regurgitated) Current Visit: Yes Status: Suspected Qualifiers: Laterality: bilateral Lung location: lower lobe of lung Qualified Code(s) : J69.0 - Pneumonitis due to inhalation of food and vomit - Time Spent With Patient Total time spent is greater than 50% in coordination of care (as documented) at patient's floor/unit and/or counseling patient: 25 - 35 minutes - Subjective Interval history: Patient resting with eyes closed - arouses with assessment. No visitors are present. Smiles when spoken to. Appears in no distress. - Constitutional Vitals: Abnormal lab results Immature Plt Fraction 8.2 % (1.1-6.1) H 06/07/17 03:36 POC Glucose 95 (58-89) H 06/08/17 04:50 Albumin 2.9 g/dL (3.5-5.0) L 06/05/17 08:42 Globulin 4.1 g/dL (2.4-3.5) H 06/05/17 08:42 Albumin/Globulin Ratio 0.7 (1.1-2.2) L 06/05/17 08:42 General appearance: Present: no acute distress - Respiratory Respiratory exam: Present: decreased breath sounds, CTAB - Cardiovascular Cardiovascular exam: Present: +S1, +S2 - GI/Abdominal GI/Abdominal exam: Present: normal bowel sounds, soft Additional comments: PEG with feedings infusing - Extremities Exam Extremities exam: Present: normal capillary refill, normal inspection - Neurological Exam Neurological exam: Present: alert Additional comments: Nonverbal, does not follow commands - Skin Skin exam: Present: dry, pallor, warm Palliative Quality Palliative Quality: Screen for Code Status: NA (Awaiting family arrival), Screen for Goals of Care: NA, Screen for Pain: Yes, If Pain Regimen Started, Initiate Bowel Regimen: NA, Screen for Nausea/Vomitting: Yes Code Status: 05/31/17 18:10 Resuscitation Status: Active [RES] Routine Comment: Resuscitation Status: Full Code 06/07/17 11:18 DNR [Resuscitation Status: Active] [RES] Routine Comment: Resuscitation Status: [id number] - Labs CBC & Chem 7: 06/08/17 06:11 06/08/17 06:11 Labs: Laboratory Results - last 24 hr 06/07/17 06/07/17 06/07/17 11:07 17:29 23:15 WBC RBC Hgb Hct MCV MCH MCHC RDW Plt Count MPV Immature Gran % Seg Neutrophils % Lymphocytes % Monocytes % Eosinophils % Basophils % Neutrophils # Lymphocytes # Monocytes # Eosinophils # Basophils # Sodium Potassium Chloride Carbon Dioxide BUN Creatinine Est GFR ( Amer) Est GFR (Non-Af Amer) BUN/Creatinine Ratio Glucose POC Glucose 119 H 81 89 Calculated Osmolality Calcium 06/08/17 06/08/17 06/08/17 04:50 06:11 06:11 WBC 7.2 RBC 4.61 Hgb 13.7 Hct 40.6 MCV 88.1 MCH 29.7 MCHC 33.7 RDW 13.1 Plt Count 176 MPV 11.7 Immature Gran % 0.3 Seg Neutrophils % 50.8 Lymphocytes % 34.4 Monocytes % 8.3 Eosinophils % 5.6 Basophils % 0.6 Neutrophils # 3.6 Lymphocytes # 2.5 Monocytes # 0.6 Eosinophils # 0.4 Basophils # 0.0 Sodium 138 Potassium 4.0 Chloride 107 Carbon Dioxide 24 BUN 11 Creatinine 0.98 Est GFR ( Amer) > 60 Est GFR (Non-Af Amer) > 60 BUN/Creatinine Ratio 11 Glucose 95 POC Glucose 95 H Calculated Osmolality 285 Calcium 8.7 - ABG Interpretation ABG results: ABG ABG pH 7.40 pH Units (7.32-7.45) 05/31/17 21:13 ABG pCO2 38 mmHg (35-45) 05/31/17 21:13 ABG pO2 92 mmHg (85-104) 05/31/17 21:13 ABG O2 Saturation 97 % (95-98) 05/31/17 21:13 Consult Discharge Plan - Plan Referrals: Amy Serrato MD [Primary Care Provider] -
[2017-06-08] MEDS ORDERED: *HR* Dextrose 50 % in Water (Syg) 50 ML SYRINGE IVP PRN (18:13)
--- NOTE | 2017-06-08 18:13 | Internal Med Progress Note ---
Date of Encounter: 06/08/17 Time of Encounter: 18:11 - Assessment and plan (1) Acute respiratory failure with hypoxia Current Visit: Yes Status: Acute Assessment and plan: still on oxygen cont Abx CXR : no obvious PNA Will continue support. 06/08/2017. Still on oxygen. Continue antibiotics for now. Chest x-ray: No pneumonia. Plan: Continue present treatment (2) Aspiration pneumonia due to food (regurgitated) Current Visit: Yes Status: Suspected Assessment and plan: will continue Unasyn will talk to family tomorrow palliative on board Qualifiers: Laterality: bilateral Lung location: lower lobe of lung Qualified Code(s) : J69.0 - Pneumonitis due to inhalation of food and vomit (3) Hypokalemia Current Visit: Yes Status: Acute Assessment and plan: resolved. (4) Hypomagnesemia Current Visit: Yes Status: Acute Assessment and plan: resolved - Subjective Interval history: seen and examined. chart reviewed. lying in bed does not appear to be in pain. 06/08/2017. Patient seen and examined. Chart reviewed. Patient is lying in the bed. - Constitutional Vitals: Temp Pulse Resp BP Pulse Ox 98.9 F 63 16 121/92 99 06/08/17 15:16 06/08/17 15:16 06/08/17 15:16 06/08/17 15:16 06/08/17 15:16 General appearance: Present: A&O X 0 - Head Head exam: Present: atraumatic, normocephalic - Eye Eye exam: Present: PERRL, conjuntiva pink, sclera anicteric Pupils: Present: PERRL - Neck Neck exam general surgery: Present: supple, trachea midline. Absent: lymphadenopathy - Respiratory Respiratory exam: Present: CTAB. Absent: accessory muscle use, rales, rhonchi, wheezes - Cardiovascular Cardiovascular exam: Present: RRR, +S1, +S2. Absent: diastolic murmur, gallop, rubs, systolic murmur - GI/Abdominal GI/Abdominal exam: Present: normal bowel sounds, soft, no peritoneal signs. Absent: distended, tenderness - Extremities Exam Extremities exam: Present: warm, radial pulses palpable and symmetrical. Absent : calf tenderness, cyanotic, pedal edema - Neurological Exam Neurological exam: Present: CN II-XII intact, oriented X3, no focal deficits. Absent: pronater drift, facial droop, speech deficit - Skin Skin exam: Present: dry, intact Internal Medicine: Result - Labs CBC & Chem 7: 06/08/17 06:11 06/08/17 06:11 Labs: Short CBC 06/08/17 Range/Units 06:11 WBC 7.2 (4.3-11.1) K/mcL Hgb 13.7 (12.9-16.9) g/dL Hct 40.6 (37.5-50.1) % Plt Count 176 (140-400) K/mcL Neutrophils # 3.6 (1.6-8.9) K/mcL BMP 06/08/17 06:11 Sodium 138 Potassium 4.0 Chloride 107 Carbon Dioxide 24 BUN 11 Creatinine 0.98 Glucose 95 Calcium 8.7 - ABG Interpretation ABG results: ABG ABG pH 7.40 pH Units (7.32-7.45) 05/31/17 21:13 ABG pCO2 38 mmHg (35-45) 05/31/17 21:13 ABG pO2 92 mmHg (85-104) 05/31/17 21:13 ABG O2 Saturation 97 % (95-98) 05/31/17 21:13 Consult Discharge Plan - Plan Referrals: Amy Serrato MD [Primary Care Provider] -
[2017-06-08] MEDS ORDERED: D10% in Water 500 ML IVC SCH (18:30)
[2017-06-09] MEDS: Ampicillin/Sulbactam 1,500 MG in 0.9 % Sodium Chloride Mini Bag 100 ML IVPB SCH ×2 (02:33→06:27)
[2017-06-09 06:12] LABS: Basophils % 0.7 %
[2017-06-09 06:19] LABS: Basophils # 0.1 K/mcL (0.0-0.2); Eosinophils # 0.3 K/mcL (0.0-0.6); Eosinophils % 4.5 %; Hematocrit 41.8 % (37.5-50.1); Hemoglobin 13.7 g/dL (12.9-16.9); Immature Granulocytes % 0.5 % (0-4); Immature Platelets 7.2 % (1.1-6.1); Lymphocytes # 2.4 K/mcL (0.6-4.6); Lymphocytes % 32.6 %; Mean Corpuscular HGB Conc 32.8 g/dL (31.6-35.5); Mean Corpuscular Hemoglobin 29.7 pg (28.0-33.3); Mean Corpuscular Volume 90.5 fL (83.0-100.0); Mean Platelet Volume 12.1 fL (9.4-12.4); Monocytes # 0.7 K/mcL (0.0-1.3); Monocytes % 8.9 %; Platelet Count 167 K/mcL (140-400); Red Blood Count 4.62 M/mcL (4.19-5.50); Red Cell Distribution Width 13.1 % (11.5-14.5); Segmented Neutrophils % 52.8 %
[2017-06-09] MEDS: *HR* Heparin 5,000 UNIT/ML VIAL SQ SCH (06:27)
[2017-06-09 06:31] LABS: BUN/Creatinine Ratio 11 (6-26); Blood Urea Nitrogen 11 mg/dL (8-26); Calcium 8.7 mg/dL (8.6-10.8); Carbon Dioxide 21 mEq/L (19-29); Chloride 105 mEq/L (98-109); Glucose 113 mg/dL (70-99); Osmolality,Calculated 284 (280-300); Sodium 137 mEq/L (136-145); eGFR For African Americans > 60 (> 60); eGFR For Non-African Americans > 60 (> 60)
[2017-06-09 06:33] LABS: Potassium 4.2 mEq/L (3.5-4.5)
[2017-06-09 06:37] LABS: Neutrophils # 3.9 K/mcL (1.6-8.9)
[2017-06-09] MEDS: Gabapentin 400 MG CAPSULE PO SCH (09:42)
[2017-06-09] MEDS: Lactobacillus 1 EACH CAP.SPRINK GTUBE SCH (09:42)
[2017-06-09] MEDS: Multivitamin Liquid 15 ML UDC GTUBE SCH (09:42)
[2017-06-09] MEDS: Pantoprazole 40 MG VIAL IVP SCH (09:43)
[2017-06-09] MEDS: Simethicone 40 MG/0.6 ML MLS GTUBE SCH (09:44)
[2017-06-09 11:26] VITALS: BP 125/90
--- NOTE | 2017-06-09 11:33 | Discharge Summary ---
Date of Encounter: 06/09/17 Time of Encounter: 11:32 - Discharge Diagnosis (1) Acute respiratory failure with hypoxia Priority: Primary Status: Acute (2) Aspiration pneumonia due to food (regurgitated) Priority: Primary Status: Suspected Qualifiers: Laterality: bilateral Lung location: lower lobe of lung Qualified Code(s) : J69.0 - Pneumonitis due to inhalation of food and vomit (3) Hypokalemia Priority: Secondary Status: Acute (4) Hypomagnesemia Priority: Secondary Status: Acute - Discharge Medications Home Medications: Gabapentin [Neurontin] 800 mg GTUBE BID 06/01/17 [History] Lactobacillus Acidophilus [Acidophilus] 1 cap GTUBE BID 06/01/17 [History] Multivit-Min/FA/Lycopen/Lutein [A Thru Z Select Multivit Tab] 1 tab GTUBE DAILY 06/01/17 [History] Polyethylene Glycol 3350 [MiraLAX] 17 gm PO DAILY 06/01/17 [History] Ranitidine HCl [Acid Car Record Clerk] 150 mg GTUBE HS 06/01/17 [History] Simethicone 80 mg GTUBE QID 06/01/17 [History] Allergies/Adverse Reactions: 3 Allergy/AdvReac Type Severity Reaction Status Date / Time levofloxacin [From Levaquin] Allergy See Verified 05/31/17 09:42 Comments meperidine [From Demerol] Allergy See Verified 05/31/17 09:42 Comments ondansetron Allergy See Verified 05/31/17 09:42 [From Zofran (as Comments hydrochloride)] Date of admission: 05/31/17 18:10 Primary care physician: Amy Serrato Consults: 05/31/17 18:09 Consult to Pulmonology [CONS] Routine Consulting Provider: Pulm Crit Care & Sleep Mary Reason for Consult: New shortness of breath, now requiring O2 support at 5 L/ NC. CT reveals mild mucus plugging within the left lower lobe. Call Completed: No 06/01/17 09:05 Consult to Slurry Man [CONS] Routine Reason for SW Consult: Patient from ECF 06/01/17 13:18 consult to dividend clerk [Consult to Nutrition] [CONS] Routine Comment: Consulting Provider: NUTRITION Reason for Dietary Consult: TF Start and Manage 06/02/17 06:47 Consult to Gastroenterology [CONS] Routine Consulting Provider: Gastroenterology Mary Reason for Consult: brown drainage from peg tube, verify correct placement Call Completed: No 06/03/17 06:07 Consult to Nephrology [CONS] Routine Consulting Provider: Kidney & HTN Spclst TANIA Reason for Consult: increasing Cr Time Notified: 06:07 Call Completed: Yes 06/06/17 16:39 Consult to Palliative Care [CONS] Routine Comment: Consulting Provider: Palliative Care Mary Reason for Consult: Aspiration. Goals of care, etc. Time Notified: 15:00 Call Completed: Yes Discharging clinician: Cory Salcedo - Patient Status Disposition: Transfer SNF Condition: Good Functional capacity at discharge: bed bound Overall status at discharge: patient is progressing back to baseline - Discharge Instructions Follow Up With: Amy Serrato MD [Primary Care Provider] - - Diet and Activity Activity: increase activity as tolerated Diet: low fat, low cholesterol Hospital course: Mr. Beck is a 36 year old male - Time Spent with Patient Total time spent providing and/or coordinating discharge services: - Constitutional Vitals: Temp Pulse Resp BP Pulse Ox 97.8 F 60 17 125/90 96 06/09/17 11:18 06/09/17 11:18 06/09/17 11:18 06/09/17 11:18 06/09/17 11:18 General appearance: Present: A&O X 0 - Head Head exam: Present: atraumatic, normocephalic - Eye Eye exam: Present: PERRL, conjuntiva pink, sclera anicteric Pupils: Present: PERRL - Neck Neck exam general surgery: Present: supple, trachea midline. Absent: lymphadenopathy - Respiratory Respiratory exam: Present: CTAB. Absent: accessory muscle use, rales, rhonchi, wheezes - Cardiovascular Cardiovascular exam: Present: RRR, +S1, +S2. Absent: diastolic murmur, gallop, rubs, systolic murmur - GI/Abdominal GI/Abdominal exam: Present: normal bowel sounds, soft, no peritoneal signs. Absent: distended, tenderness - Extremities Exam Extremities exam: Present: warm, radial pulses palpable and symmetrical. Absent : calf tenderness, cyanotic, pedal edema - Neurological Exam Neurological exam: Present: CN II-XII intact, oriented X3, no focal deficits. Absent: pronater drift, facial droop, speech deficit - Skin Skin exam: Present: dry, intact
--- NOTE | 2017-06-09 12:55 | Physician Discharge Referral ---
ExtendedCare Referral Info Transfer To: [facility] - Diagnosis (1) Acute respiratory failure with hypoxia Priority: Primary Status: Acute (2) Aspiration pneumonia due to food (regurgitated) Priority: Primary Status: Suspected (3) Hypokalemia Priority: Secondary Status: Acute (4) Hypomagnesemia Priority: Secondary Status: Acute - Transfer Medications Home Medications: Gabapentin [Neurontin] 800 mg GTUBE BID 06/01/17 [History] Lactobacillus Acidophilus [Acidophilus] 1 cap GTUBE BID 06/01/17 [History] Multivit-Min/FA/Lycopen/Lutein [A Thru Z Select Multivit Tab] 1 tab GTUBE DAILY 06/01/17 [History] Polyethylene Glycol 3350 [MiraLAX] 17 gm PO DAILY 06/01/17 [History] Ranitidine HCl [Acid Accounting Methods Analyst] 150 mg GTUBE HS 06/01/17 [History] Simethicone 80 mg GTUBE QID 06/01/17 [History] Allergies/Adverse Reactions: 3 Allergy/AdvReac Type Severity Reaction Status Date / Time levofloxacin [From Levaquin] Allergy See Verified 05/31/17 09:42 Comments meperidine [From Demerol] Allergy See Verified 05/31/17 09:42 Comments ondansetron Allergy See Verified 05/31/17 09:42 [From Zofran (as Comments hydrochloride)] - Respiratory Orders Smoking Cessation: Smoking cessation has been advised. For more information, call the [place] Tobacco Quit Line at 0-984-TVEH-NOW. - Mobility Orders Bedrest (please keep head end up by 30 degree) CERTIFICATION: I certify that the transfer of the above named patient to an Extended Care Facility is necessary for the continuing treatment of the diagnosis listed. The above information is true and accurate reflection of patient's current condition. Confidential - Redisclosure prohibited without a patient's written consent.
== END 2017-06-09 14:00 | DRG 871 ==
LOC: 2NENU → SUATTDRO 18:10
PROVIDERS: ADMIT Internal Medicine; ATTEND Internal Medicine

== ENCOUNTER 2017-11-19 19:28 | Inpatient (IN) ==
[~2017-11-19 19:28] MED LIST changes: +*HR* HYDROcodone/Acet 5/325 mg TABLET PO PRN; +Acetaminophen 325 MG TABLET PO PRN; -Aminoglycoside Consult 1 EACH MC ONE; +Naloxone 0.4 MG/ML INJ IVP PRN; +Ondansetron 4 MG/2 ML VIAL IVP PRN
[2017-11-19] MEDS ORDERED: *HR* FentaNYL (PF) 100 MCG/2 ML VIAL IVP PRN (19:38)
--- NOTE | 2017-11-19 20:44 | Internal Med History&Physical ---
Date of Encounter: 11/19/17 Time of Encounter: 20:00 Internal Medicine - H&P: HPI Chief complaint: Hypoxia, Cough, Sepsis Admitted From: Emergency Dept Plans for Post Hospital Care: Home History of present illness: Mr. 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 His initial CXR did not show any infiltrates. Pt was transferred here for further evaluation regarding his Rt Renal calucli and sepsis. He was given IV Rocephin x 1 dose. Pt is alert, awake and does not follow any verbal communication and commands. Pt 's father is at bedside who provided me all the information. Pt does have severe respiratroy secretions, greenish sputum noticed. Cough +. Pt does look mild distress. Past Med Surg Social Fam HX - Past Medical History Medical history: GERD, seizures Psychiatric history: no psych history - Past Surgical History Surgical History: colostomy, other (PEG tube) - Social History Smoking Status: Never smoker Smokeless Tobacco Status: No Alcohol use: none Drug use: none - Family History Mother Family Member Ethnicity: Non- Living Status: Still Living Internal Medicine - H&P: Meds Gabapentin [Neurontin] 800 mg GTUBE BID 06/01/17 [History] Multivit-Min/FA/Lycopen/Lutein [A Thru Z Select Multivit Tab] 1 tab GTUBE DAILY 06/01/17 [History] Polyethylene Glycol 3350 [MiraLAX] 17 gm PO DAILY 06/01/17 [History] Simethicone 80 mg GTUBE BID 06/01/17 [History] Metoclopramide [Reglan] 5 mg PO Q6HR 11/19/17 [History] Omeprazole [PriLOSEC] 20 mg PO DAILY 11/19/17 [History] 3 Allergy/AdvReac Type Severity Reaction Status Date / Time levofloxacin [From Levaquin] Allergy See Verified 11/19/17 14:37 Comments meperidine [From Demerol] Allergy See Verified 11/19/17 14:37 Comments ondansetron Allergy See Verified 11/19/17 14:37 [From Zofran (as Comments hydrochloride)] All Systems PM: A 10-system review of systems was performed and is negative for pertinent findings except as documented above in the HPI. Review of systems: All the systems are reviewed everything is benign except the systems and symptoms I mentioned in the history of present illness - Constitutional Vitals: Temp Pulse Resp BP Pulse Ox 100.4 F H 147 20 126/87 95 11/19/17 19:41 11/19/17 19:41 11/19/17 19:41 11/19/17 19:41 11/19/17 19:41 General appearance: Present: A&O X 0, mild distress. Absent: answers questions appropriately - Head Head exam: Present: atraumatic - Neck Neck exam general surgery: Present: supple - Respiratory Respiratory exam: Present: decreased breath sounds, rales (mild), rhonchi. Absent: respiratory distress, wheezes - Cardiovascular Cardiovascular exam: Present: +S1, +S2, tachycardia. Absent: systolic murmur - GI/Abdominal GI/Abdominal exam: Present: normal bowel sounds, soft. Absent: rebound, rigid, tenderness Additional comments: colostomy + PEG tube + - Back Exam Back exam: Absent: CVA tenderness (L), CVA tenderness (R) - Neurological Exam Neurological exam: Present: alert, altered - Psychiatric Additional comments: Unable to assess - Skin Skin exam: Absent: rash - Assessment and plan (1) Sepsis Current Visit: No Status: Acute Assessment and plan: Admit the pt into Tele He does meet sepsis criteria with Tachycardia, elevated WBC, source of inf as pneumonia and UTI If blood cx not drawn at , will draw here I will check sputum culture, urine culture, step pneumonia, Legionella, and respiratory viral panel started him on empirical antibiotic with zosyn and vancomycin aggressive IV hydration Talked to patients father at bed side and explained to them about current care patient's father requested for DNR / DNI Qualifiers: Sepsis type: sepsis due to unspecified organism Qualified Code(s): A41.9 - Sepsis, unspecified organism (2) Acute respiratory failure with hypoxia Current Visit: No Status: Acute Assessment and plan: He does have a lot of purulent junkie respiratory secretions concerning for possible aspiration pneumonia started him on empirical antibiotic Duoneb as schedule RT consulted for frequent suctions strict NPO (3) Aspiration pneumonia due to food (regurgitated) Current Visit: No Status: Suspected Assessment and plan: Reviewed chest x-ray by myself- no acute infiltrates noticed however given his presentation am more concerned about aspiration pneumonia started him on Zosyn antibiotic Qualifiers: Laterality: bilateral Lung location: lower lobe of lung Qualified Code(s) : J69.0 - Pneumonitis due to inhalation of food and vomit (4) Renal calculi Current Visit: Yes Status: Acute Assessment and plan: Reviewed the CT scan from October 2017 showing large light right renal calculi urology consulted possible surgery in AM (5) PEG (percutaneous endoscopic gastrostomy) status Current Visit: No Status: Acute Assessment and plan: Held tube feedings for now (6) Tachycardia Current Visit: No Status: Acute Assessment and plan: due to sepsis continue aggressive IV hydration (7) UTI (urinary tract infection) Current Visit: No Status: Acute Assessment and plan: Reviewed UA concerning for UTI on empirical antibiotic Qualifiers: Urinary tract infection type: acute cystitis Hematuria presence: with hematuria Qualified Code(s): N30.01 - Acute cystitis with hematuria - Time Spent With Patient Total time spent is greater than 50% in coordination of care (as documented) at patient's floor/unit and/or counseling patient:
[2017-11-19] MEDS: 0.9 % Sodium Chloride 1,000 ML IVC SCH (20:54)
[2017-11-19] MEDS: *HR* OxyCODONE Oral Soln 5 MG/5 ML UD.LIQ GTUBE PRN (20:55)
[2017-11-19] MEDS: Piperacillin/Tazobactam 3.375 GM in 0.9 % Sodium Chloride Mini Bag 100 ML IVPB SCH (20:55)
[2017-11-19] MEDS: Ipratropium/Albuterol Neb 3 ML IH SCH (21:03)
[2017-11-19] MEDS: *HR* Promethazine 25 MG/ML VIAL IVP PRN (21:55)
[2017-11-19] MEDS ORDERED: 0.9 % Sodium Chloride 500 ML IV ONE (22:25)
[2017-11-20] MEDS: Ipratropium/Albuterol Neb 3 ML IH SCH ×6 (00:13→19:39)
[2017-11-20] MEDS ORDERED: *HR* LORazepam 0.5 MG TABLET PO PRN (01:56)
[2017-11-20] MEDS ORDERED: *HR* LORazepam 0.5 MG TABLET GTUBE PRN (01:58)
[2017-11-20] MEDS: Piperacillin/Tazobactam 3.375 GM in 0.9 % Sodium Chloride Mini Bag 100 ML IVPB SCH ×3 (04:40→20:16)
[2017-11-20] MEDS: 0.9 % Sodium Chloride 1,000 ML IVC SCH ×2 (04:40→15:21)
[2017-11-20] MEDS: *HR* LORazepam 2 MG/ML VIAL IVP PRN ×2 (05:56→06:37)
[2017-11-20] MEDS ORDERED: *HR* Enoxaparin 40 MG/0.4 ML SYRINGE SQ SCH (06:00)
[2017-11-20] MEDS ORDERED: 0.9 % Sodium Chloride 500 ML IVC ONE (06:13)
--- NOTE | 2017-11-20 07:32 | Urology - Consult Note ---
Date of Encounter: 11/20/17 Time of Encounter: 07:29 - Assessment and Plan (1) Renal calculi Current Visit: Yes Status: Acute Assessment and plan: 37-year-old man with a right ureteropelvic junction stone and likely UTI with sepsis was admitted for further care. I recommend proceeding with a cystoscopy , right ureteral stent placement. I informed his caregiver of the risks including but not limited to bleeding, infection, injury to other structures, need for further procedures, stent irritation, ureteral perforation, need for nephrostomy tube, need for open repair, risks unforeseen, and the risk of anesthesia. He is willing to proceed. (2) UTI (urinary tract infection) Current Visit: No Status: Acute Assessment and plan: Continue broad-spectrum antibiotics for now. Await urine cultures. Qualifiers: Urinary tract infection type: acute cystitis Hematuria presence: with hematuria Qualified Code(s): N30.01 - Acute cystitis with hematuria Urology CN:HPI Consult date: 11/20/17 Reason for consult Urology: Other (Right UPJ stone) History of present illness: 37-year-old man with a history of MRDD was admitted for emesis associated with a right ureteropelvic junction stone. The stone was diagnosed back in October. Overnight, he has had a low-grade fever and has become tachycardic. He has encephalopathy. History is obtained from the chart. [facility] he had worsening oxygenation and increased secretions. He does have a colostomy and a PEG tube. Past Med Surg Social Fam HX - Past Medical History Medical history: GERD, seizures Psychiatric history: no psych history - Past Surgical History Surgical History: colostomy, other (PEG tube) - Social History Smoking Status: Never smoker Smokeless Tobacco Status: No Alcohol use: none Drug use: none - Family History Mother Family Member Ethnicity: Non- Living Status: Still Living Medications and Allergies Gabapentin [Neurontin] 800 mg GTUBE BID 06/01/17 [History] Multivit-Min/FA/Lycopen/Lutein [A Thru Z Select Multivit Tab] 1 tab GTUBE DAILY 06/01/17 [History] Polyethylene Glycol 3350 [MiraLAX] 17 gm GTUBE DAILY 06/01/17 [History] Simethicone 80 mg GTUBE BID 06/01/17 [History] Acetaminophen [Children's Pain-Fever] 640 mg GTUBE Q4HR PRN 11/19/17 [History] GuaiFENesin/Dextromethorphan [Robitussin/DM] 5 ml GTUBE Q4HR PRN 11/19/17 [ History] Hydrocortisone 1% CREAM 1 % TP DAILY 11/19/17 [History] Metoclopramide [Reglan] 5 mg GTUBE Q6HR 11/19/17 [History] Omeprazole [PriLOSEC] 20 mg GTUBE DAILY 11/19/17 [History] Promethazine [Phenergan] 25 mg GTUBE Q6HR PRN 11/19/17 [History] 3 Allergy/AdvReac Type Severity Reaction Status Date / Time levofloxacin [From Levaquin] Allergy See Verified 11/19/17 14:37 Comments meperidine [From Demerol] Allergy See Verified 11/19/17 14:37 Comments ondansetron Allergy See Verified 11/19/17 14:37 [From Zofran (as Comments hydrochloride)] Review of Systems ROS unobtainable: due to mental status Exam Initial Vital Signs Temp Pulse Resp BP Pulse Ox 100.4 F H 147 20 126/87 95 11/19/17 19:41 11/19/17 19:41 11/19/17 19:41 11/19/17 19:41 11/19/17 19:41 - General physical appearance Present: moderate distress, other (non-communicative) - Eyes Absent: icteric - ENT Present: normal nares - Neck Present: trachea midline - Respiratory Present: other (tachypnic) - Cardiovascular Cardiovascular exam IM: tachycardia - Abdomen Abdomen: Present: soft - Genitourinary normal penis with no external lesions - Integumentary Present: no rash - Neurologic Present: confused - Musculoskeletal Present: other (contracted) Urology Results - Labs All other labs normal. - Imaging CT scan - abdomen: report reviewed, image reviewed CT scan - pelvis: report reviewed, image reviewed Consult Discharge Plan - Plan Referrals: NONE,PCP [Primary Care Provider] -
--- NOTE | 2017-11-20 07:45 | Anesthesia Evaluation PreOp ---
Date of Encounter: 11/20/17 Time of Encounter: 07:40 - Past History Planned Operation: Cystoscopy Ureteral Stent Placement Cardiac History: Denies any Significant Hx Pulmonary History: Other (Chronic Respiratory Failure from Aspiration) REGULATORY AFFAIRS ASSISTANT History: Seizures, Other (Viral Encephalitis, MRDD) Other Medical History: GERD, Other (Tube Feeding) Anesthesia History: No Prior Anesthetic Complications (Patient DNR DNI, but father gives permission to inbutate for OR) Alcohol Use: none Drug use: none Medications and Allergies Gabapentin [Neurontin] 800 mg GTUBE BID 06/01/17 [History] Multivit-Min/FA/Lycopen/Lutein [A Thru Z Select Multivit Tab] 1 tab GTUBE DAILY 06/01/17 [History] Polyethylene Glycol 3350 [MiraLAX] 17 gm GTUBE DAILY 06/01/17 [History] Simethicone 80 mg GTUBE BID 06/01/17 [History] Acetaminophen [Children's Pain-Fever] 640 mg GTUBE Q4HR PRN 11/19/17 [History] GuaiFENesin/Dextromethorphan [Robitussin/DM] 5 ml GTUBE Q4HR PRN 11/19/17 [ History] Hydrocortisone 1% CREAM 1 % TP DAILY 11/19/17 [History] Metoclopramide [Reglan] 5 mg GTUBE Q6HR 11/19/17 [History] Omeprazole [PriLOSEC] 20 mg GTUBE DAILY 11/19/17 [History] Promethazine [Phenergan] 25 mg GTUBE Q6HR PRN 11/19/17 [History] 3 Allergy/AdvReac Type Severity Reaction Status Date / Time levofloxacin [From Levaquin] Allergy See Verified 11/19/17 14:37 Comments meperidine [From Demerol] Allergy See Verified 11/19/17 14:37 Comments ondansetron Allergy See Verified 11/19/17 14:37 [From Zofran (as Comments hydrochloride)] - Meds/Allergy Pre-op Review Medications Reviewed: Yes Allergies Reviewed: Yes Beta Blockers on Current Med List: No Anesthesia Results - Labs Laboratory Tests 11/19/17 11/19/17 15:25 15:25 Hgb 15.1 Hct 45.0 Plt Count 182 Sodium 134 L Potassium 3.8 BUN 14 Creatinine 0.53 L Anesthesia Exam Vital Signs/O2 Sat/Glucose, Most Current Temp Pulse Resp BP Pulse Ox 11/20/17 04:36 19 92 11/20/17 04:04 100.4 F H 112 18 120/86 95 Height: 5'0 Weight: 150 lbs NPO (# of Hours): MN Pain Scale: 0 - HEENT Pupil (Motor): Pupils equal, EOMI Mallampati: III Teeth: Poor dentition Oral Opening: Less than or equal to 3 - REGULATORY AFFAIRS ASSISTANT LOC: Unable to assess REGULATORY AFFAIRS ASSISTANT Motor: Normal RUE, Normal LUE, Normal Face, Deficit RLE, Deficit LLE REGULATORY AFFAIRS ASSISTANT Sensory: Normal: RUE, LUE, RLE, LLE, Face - Cardiac Rhythm: Regular (Tachycardic) Murmur: None JVD: No Carotid Bruit: No - Pulmonary Breath Sounds: bilateral Rhonchi Respiratory Effort: Labored Anesthesia Assess/Plan ASA Score: 4 (MRDD, Chronic Respiratory Failure, Seizures,) Modified F[place] Scale for Level of Consciousness: Cooperative, oriented, and tranquil Anesthetic Plan: General Monitoring Plan: Standard Monitors Recovery Plan: PACU (Discussed with parent possibility of intubation, but will attempt MAC, agrees to proceed)
[2017-11-20] MEDS ORDERED: *HR* Propofol 200 MG/20 ML VIAL IVP ONE (08:02)
[2017-11-20] MEDS ORDERED: Lidocaine -MPF 2% 2 ML VIAL ONE (08:34)
[2017-11-20] MEDS ORDERED: Isovue-300 50 ML VIAL IVP ONE (08:44)
--- NOTE | 2017-11-20 09:02 | Operative Note ---
Date of procedure: 11/20/17 Pre-op diagnosis: Right UPJ stone and uti Post-op diagnosis: same Procedure: Cystoscopy, right retrograde Polygram, and right ureteral stent placement Implants: 6 Austrian x 24 cm JJ stent Complications: none Anesthesia: MAC Surgeon: Ahmet Haque Was there an religious assistant present: No Estimated blood loss (cc): 1 Specimen: right renal aspirate for culture Condition: stable Disposition: PACU Procedure in Detail: Indications: Mr. Beck is a 37-year-old male who has a history of nephrolithiasis. He had a CT which showed a right UPJ stone. He is developing fevers. He has a history of MRDD. He elected to undergo a cystoscopy and right ureteral stent placement. He was aware of the risks of the procedure including but not limited to bleeding, infection, injury to other structures, need for further procedures, stent irritation, need for nephrostomy tube, need for open repair, risks otherwise unforeseen, and the risk of anesthesia. He is willing to proceed. Procedure in Detail: After informed consent was obtained the patient was brought back to the operating room and placed in supine position. A time out was performed. Monitored anesthesia was administered. He was prepped and draped in the usual sterile fashion. Flexible cystoscopy was performed. The anterior urethra was normal. There was no evidence of bladder tumors. The ureteral orifices were in the normal orthotopic position. There was no duplication of the ureteral orifices. The glide wire was placed in the rightt ureteral orifice. The wire was then brought up into the kidney under fluoroscopic guidance. An open-ended catheter was placed over the wire and brought into the kidney. A retrograde Polygram was performed. The large stone in the renal pelvis was identified with a filling defect. The wire was replaced. A 6 Austrian by 24cm JJ stent was then placed. The dangle strings were removed. A 16-Austrian Piper catheter was placed. A cystogram showed good position of the Piper in the bladder. The patient was then awakened from general anesthesia and brought to recovery room in good condition. All sponge, needle, and instrument counts were correct.
--- NOTE | 2017-11-20 09:18 | Anesthesia Evaluation Post Op ---
Date of Encounter: 11/20/17 Time of Encounter: 09:25 - Vital Signs Vital Signs: Vital Signs/O2 Sat/Glucose, Most Current Temp Pulse Resp BP Pulse Ox 11/20/17 09:13 143 24 106/74 96 11/20/17 09:03 98.7 F 130 24 118/60 94 11/20/17 08:32 101.4 F H 16 99/65 94 11/20/17 07:34 18 94 - Lungs Lungs: Clear Ascult./Percussion - Airway Airway: Non-obstructed - Cardiovascular Baseline Rhythm - Mental Status Mental Status: Alert & Oriented, Answers Appropriately - Pain Pain Scale: 0 - Nausea Vomiting Nausea Vomiting: Not Present - Hydration Hydration: NPO - Discharge PostOp Status: Transfer Patient to floor
[2017-11-20] MEDS: *HR* OxyCODONE Oral Soln 5 MG/5 ML UD.LIQ GTUBE PRN ×2 (10:15→16:10)
[2017-11-20] MEDS: *HR* Promethazine 25 MG/ML VIAL IVP PRN (10:16)
[2017-11-20] MEDS ORDERED: *HR* Promethazine 25 MG/ML VIAL IVP PRN (10:21)
[2017-11-20] MEDS ORDERED: *HR* FentaNYL (PF) 100 MCG/2 ML VIAL IVP PRN (10:21)
[2017-11-20] MEDS ORDERED: Naloxone 0.4 MG/ML INJ IVP PRN (10:21)
[2017-11-20] MEDS ORDERED: 0.9 % Sodium Chloride 1,000 ML IVC SCH (10:21)
[2017-11-20] MEDS ORDERED: *HR* LORazepam 2 MG/ML VIAL IVP PRN (10:21)
[2017-11-20 10:39] LABS: Basophils % 0.3 %; Hematocrit 41.2 % (37.5-50.1); Immature Granulocytes % 0.1 % (0-4); Lymphocytes # 0.7 K/mcL (0.6-4.6); Lymphocytes % 9.8 %; Mean Corpuscular HGB Conc 31.6 g/dL (31.6-35.5); Mean Corpuscular Hemoglobin 28.3 pg (28.0-33.3); Mean Corpuscular Volume 89.6 fL (83.0-100.0); Mean Platelet Volume 11.7 fL (9.4-12.4); Monocytes # 0.8 K/mcL (0.0-1.3); Neutrophils # 5.2 K/mcL (1.6-8.9); Platelet Count 135 K/mcL (140-400); Red Cell Distribution Width 13.6 % (11.5-14.5); Segmented Neutrophils % 77.8 %
[2017-11-20 10:55] LABS: BUN/Creatinine Ratio 15 (6-26); Blood Urea Nitrogen 9 mg/dL (6-20); Calcium 7.9 mg/dL (8.6-10.3); Carbon Dioxide 19 mEq/L (23-29); Chloride 116 mEq/L (98-107); Glucose 101 mg/dL (70-105); Magnesium 1.6 mg/dL (1.6-2.6); Osmolality,Calculated 293 (280-300); Potassium 3.3 mEq/L (3.5-5.1); Sodium 142 mEq/L (136-145); eGFR For African Americans > 60 (> 60); eGFR For Non-African Americans > 60 (> 60)
[2017-11-20 11:33] LABS: Adenovirus Not Detected (Not Detect); Bordetella Pertussis Not Detected (Not Detect); Chlamydophila pneumoniae Not Detected (Not Detect); Coronavirus 229E Not Detected (Not Detect); Coronavirus HKU1 Not Detected (Not Detect); Coronavirus NL63 Not Detected (Not Detect); Coronavirus OC43 Not Detected (Not Detect); Human Metapneumovirus ***DETECTED*** (Not Detect); Human Rhinovirus/Enterovirus Not Detected (Not Detect); Influenza A Subtype 2009 H1 Not Detected (Not Detect); Influenza A Untypeable Not Detected (Not Detect); Influenza B Not Detected (Not Detect); Mycoplasma pneumoniae Not Detected (Not Detect); Parainfluenza Virus 1 Not Detected (Not Detect); Parainfluenza Virus 2 Not Detected (Not Detect); Parainfluenza Virus 3 Not Detected (Not Detect); Parainfluenza Virus 4 Not Detected (Not Detect); Respiratory Syncytial Virus Not Detected (Not Detect)
--- NOTE | 2017-11-20 11:35 | Neurology - Consult Note ---
Date of Encounter: 11/20/17 Time of Encounter: 11:35 Assessment and Plan (1) Seizure disorder Current Visit: Yes Status: Acute Patient with MRDD, and seizure disorder, described as 'flinching movement' episodically, resembling tonic or atonic seizures, rather effectively treated with Keppra 500mg bid but still has intermittent episodes. These are not associated with postictal phenomenon and they may be difficult to get rid of totally. Will recommend no changes in his antiepileptic therapy at this time. Will review routine EEG when it is available tomorrow. Please continue medical and supportive care History of Present Illness Chief complaint: seizure disorder HPI: Mr. Beck is a 37 year old male with PMH significant for seizure disorder, MRDD, who is consulted regarding seizure disorder management. Patient is admitted due to kidney stones. Patient's step father provided his history of seizure. He has been taking care of the patient since the last 20 years. He describes patient's seizures as 'flinching movements' involving his head and body episodically, occurring intermittently, never continuously. He may have had major seizures more than 20 years ago but his step father has never seen one. Step father states that he has seizures once in a while, may be every few weeks not that often. Apparently he has been taking Keppra 500mg bid and has been doing well. The seizures are not associated with postictal phenomenon. Stepfather that he had few episodes yesterday and he has not had today so far. Past Med Surg Social Fam HX - Past Medical History Medical history: GERD, seizures Psychiatric history: no psych history - Past Surgical History Surgical History: colostomy, other (PEG tube) - Social History Smoking Status: Never smoker Smokeless Tobacco Status: No Alcohol use: none Drug use: none - Family History Mother Family Member Ethnicity: Non- Living Status: Still Living Medications and Allergies Gabapentin [Neurontin] 800 mg GTUBE BID 06/01/17 [History] Multivit-Min/FA/Lycopen/Lutein [A Thru Z Select Multivit Tab] 1 tab GTUBE DAILY 06/01/17 [History] Polyethylene Glycol 3350 [MiraLAX] 17 gm GTUBE DAILY 06/01/17 [History] Simethicone 80 mg GTUBE BID 06/01/17 [History] Acetaminophen [Children's Pain-Fever] 640 mg GTUBE Q4HR PRN 11/19/17 [History] GuaiFENesin/Dextromethorphan [Robitussin/DM] 5 ml GTUBE Q4HR PRN 11/19/17 [ History] Hydrocortisone 1% CREAM [Cortaid] 1 appl TP DAILY PRN 11/19/17 [History] Metoclopramide [Reglan] 5 mg GTUBE Q6HR 11/19/17 [History] Omeprazole [PriLOSEC] 20 mg GTUBE DAILY 11/19/17 [History] Promethazine [Phenergan] 25 mg GTUBE Q6HR PRN 11/19/17 [History] 3 Allergy/AdvReac Type Severity Reaction Status Date / Time levofloxacin [From Levaquin] Allergy See Verified 11/19/17 14:37 Comments meperidine [From Demerol] Allergy See Verified 11/19/17 14:37 Comments ondansetron Allergy See Verified 11/19/17 14:37 [From Zofran (as Comments hydrochloride)] All Systems: The remainder of the systems were reviewed and are negative Physical Examination - Vital Signs Vital Signs: Initial Vital Signs Temp Pulse Resp BP Pulse Ox 100.4 F H 147 20 126/87 95 11/19/17 19:41 11/19/17 19:41 11/19/17 19:41 11/19/17 19:41 11/19/17 19:41 - Constitutional General appearance: comfortable - Neurologic Sensorimotor examination: other (unable to assess due to MR) Detailed sensory examination: intact (Unable to able assess due to MR) Posture: other (None) Reflex and gait examination: intact Reflexes: Biceps: 2+, Triceps: 2+, Brachioradialis: 2+, Patella: 2+, Achilles: 2 + Mental Status Examination: drowsy (Sleepiing but easily arousable. Patient has MR and is mute) Results - Laboratory Findings CBC and BMP: 11/20/17 10:23 11/20/17 10:07 Abnormal lab findings: Abnormal lab results Plt Count 135 K/mcL (140-400) L 11/20/17 10:23 Potassium 3.3 mEq/L (3.5-5.1) L 11/20/17 10:07 Chloride 116 mEq/L (98-107) H 11/20/17 10:07 Carbon Dioxide 19 mEq/L (23-29) L 11/20/17 10:07 Creatinine 0.60 mg/dL (0.70-1.30) L 11/20/17 10:07 Calcium 7.9 mg/dL (8.6-10.3) L 11/20/17 10:07 Human Metapneumovir PCR DETECTED (Not Detect) A 11/20/17 10:14 Consult Discharge Plan - Plan Referrals: NONE,PCP [Primary Care Provider] -
--- NOTE | 2017-11-20 13:43 | Internal Med Progress Note ---
<Dexter Aldana - Last Filed: 11/20/17 16:33> Date of Encounter: 11/20/17 Time of Encounter: 13:20 - Assessment and plan (1) Sepsis Current Visit: No Status: Acute Assessment and plan: - 3 SIRS criteria (fever, tachycardia and tachypnea) with lactic acid 0.9 on initial presentation. - Likely secondary to viral infection (positive PCR for human metapneumovirus), possible aspiration pneumonia and/or infected kidney stone/UTI. - Improves as fever resolved and leukocytosis normalized. - Continue current IV antibiotic regimen and hydration with IV fluid. - Continue to monitor closely. Qualifiers: Sepsis type: sepsis due to unspecified organism Qualified Code(s): A41.9 - Sepsis, unspecified organism (2) Aspiration pneumonia due to food (regurgitated) Current Visit: No Status: Suspected Assessment and plan: - With significant amount of purulent junkie respiratory secretions on initial presentation concerning of aspiration pneumonia. - Will obtain sputum culture and gram stain if possible. - Continue IV vancomycin (Day 1) and Zosyn (Day 1). Further de-escalation based on clinical picture and culture result. Qualifiers: Laterality: bilateral Lung location: lower lobe of lung Qualified Code(s) : J69.0 - Pneumonitis due to inhalation of food and vomit (3) UTI (urinary tract infection) Current Visit: No Status: Acute Assessment and plan: - History of urine culture on 05/31/17 grew MRSA - Urine culture pending. - Continue IV vancomycin (Day 1) and Zosyn (Day 1). Qualifiers: Urinary tract infection type: acute cystitis Hematuria presence: with hematuria Qualified Code(s): N30.01 - Acute cystitis with hematuria (4) Renal calculi Current Visit: Yes Status: Acute Assessment and plan: - CT A/P on 10/26/17 showed an obstructing 17 mm right ureteropelvic junction stone with mild-moderate right-sided hydronephrosis. - Urology consulted and status post cystoscopy, right retrograde Polygram, and right ureteral stent placement today. - Appreciate urology recommendation. (5) Acute respiratory failure with hypoxia Current Visit: No Status: Acute Assessment and plan: - With increased oxygen need (4L) on initial presentation. - Likely secondary to human metapneumovirus infection and/or aspiration pneumonia. - Improves as patient now maintains good oxygenation with 2L NC. - Continue bronchodilators and supplemental oxygen. (6) Seizure disorder Current Visit: Yes Status: Acute Assessment and plan: - Know history of seizure disorder with "flinching movements" involving his head and body episodically. - On seizure precaution. - Neurology on board and recommends to continue Keppra and will get EEG tomorrow. (7) PEG (percutaneous endoscopic gastrostomy) status Current Visit: No Status: Acute (8) DVT prophylaxis Current Visit: No Status: Acute Assessment and plan: - Continue SQ Lovenox. - Time Spent With Patient Total time spent is greater than 50% in coordination of care (as documented) at patient's floor/unit and/or counseling patient: - Subjective Interval history: Patient was seen and examined this afternoon. No family member at bedside. Patient remains somnolent but moves on verbal stimuli. Per nurse, that is his normal especially given patient did not sleep well last night. - Constitutional Vitals: Temp Pulse Resp BP Pulse Ox 99.8 F H 110 16 109/74 99 11/20/17 11:00 11/20/17 11:00 11/20/17 11:00 11/20/17 11:00 11/20/17 11:00 General appearance: Present: no acute distress. Absent: answers questions appropriately Exam: Somnolent but seems to response to verbal and noxious stimuli. - Head Head exam: Present: normal inspection - Neck Neck exam general surgery: Present: normal inspection, supple - Respiratory Respiratory exam: Present: decreased breath sounds, rhonchi - Cardiovascular Cardiovascular exam: Present: tachycardia - GI/Abdominal GI/Abdominal exam: Present: normal bowel sounds, soft - Extremities Exam Extremities exam: Absent: cyanotic, pedal edema - Skin Skin exam: Present: dry, warm Internal Medicine: Result - Labs CBC & Chem 7: 11/20/17 10:23 11/20/17 10:07 Labs: Short CBC 11/20/17 Range/Units 10:23 WBC 6.7 (4.3-11.1) K/mcL Hgb 13.0 D (12.9-16.9) g/dL Hct 41.2 (37.5-50.1) % Plt Count 135 L (140-400) K/mcL Neutrophils # 5.2 (1.6-8.9) K/mcL BMP 11/20/17 10:07 Sodium 142 Potassium 3.3 L Chloride 116 H Carbon Dioxide 19 L BUN 9 Creatinine 0.60 L Glucose 101 Calcium 7.9 L - Impressions Impressions Retrograde Pyelogram 11/20/17 00:00 IMPRESSION: Intraprocedural fluoroscopic spot images as above. See separate procedure report for more information. D/ / 11/20/2017 09:28:34 Maya Wiley MD / [email or web address] Interpreting Provider: Maya Wiley MD Consult Discharge Plan - Plan Referrals: NONE,PCP [Primary Care Provider] - <Clemente Nowak - Last Filed: 11/20/17 17:27> Date of Encounter: 11/20/17 - Assessment and plan (1) Acute respiratory failure with hypoxia Current Visit: No Status: Acute (2) Acute bronchiolitis due to human metapneumovirus Current Visit: Yes Status: Acute (3) Sepsis Current Visit: No Status: Acute Qualifiers: Sepsis type: sepsis due to unspecified organism Qualified Code(s): A41.9 - Sepsis, unspecified organism (4) Aspiration pneumonia due to food (regurgitated) Current Visit: No Status: Suspected Qualifiers: Laterality: bilateral Lung location: lower lobe of lung Qualified Code(s) : J69.0 - Pneumonitis due to inhalation of food and vomit (5) UTI (urinary tract infection) Current Visit: No Status: Acute Qualifiers: Urinary tract infection type: acute cystitis Hematuria presence: with hematuria Qualified Code(s): N30.01 - Acute cystitis with hematuria (6) PEG (percutaneous endoscopic gastrostomy) status Current Visit: No Status: Chronic (7) Tachycardia Current Visit: No Status: Acute (8) Renal calculi Current Visit: Yes Status: Acute - Time Spent With Patient Total time spent is greater than 50% in coordination of care (as documented) at patient's floor/unit and/or counseling patient: - Constitutional Vitals: Temp Pulse Resp BP Pulse Ox 99.8 F H 148 16 142/85 97 11/20/17 16:12 11/20/17 16:12 11/20/17 16:12 11/20/17 16:12 11/20/17 16:12 Internal Medicine: Result - Labs CBC & Chem 7: 11/20/17 10:23 04/08/18 10:07 Labs: Short CBC 11/20/17 Range/Units 10:23 WBC 6.7 (4.3-11.1) K/mcL Hgb 13.0 D (12.9-16.9) g/dL Hct 41.2 (37.5-50.1) % Plt Count 135 L (140-400) K/mcL Neutrophils # 5.2 (1.6-8.9) K/mcL BMP 11/20/17 10:07 Sodium 142 Potassium 3.3 L Chloride 116 H Carbon Dioxide 19 L BUN 9 Creatinine 0.60 L Glucose 101 Calcium 7.9 L - Impressions Impressions Retrograde Pyelogram 11/20/17 00:00 IMPRESSION: Intraprocedural fluoroscopic spot images as above. See separate procedure report for more information. D/ / 11/20/2017 09:28:34 Maya Wiley MD / [email or web address] Interpreting Provider: Maya Wiley MD - Attending Attestation I examined this patient and my medical decision-making was reviewed with the Resident Physician on 11/20/17. I agree with the documented findings, disposition and treatment plan as described except to the extent set forth below. Mr Beck is currently admitted for sepsis related to respiratory infection and probable UTI. He remains moderate to high risk due to potential for worsening clinical status. Mr Beck is s/p renal stent placement. No fever at this time. Coughing a lot. RIP positive for human metapneumovirus. He is unable to give other history. Exam alert Coughing Rhonchi heard bilaterally Heart tachy Abd soft I/P 1. Sepsis due to human metapneumonvirus and possible UTI 2. Ureteral calculi Further diagnoses and plan as above.
[2017-11-20] MEDS ORDERED: Pantoprazole 40 MG VIAL IVP SCH (21:30)
[2017-11-21] MEDS: Ipratropium/Albuterol Neb 3 ML IH SCH ×7 (00:04→23:05)
[2017-11-21] MEDS: 0.9 % Sodium Chloride 1,000 ML IVC SCH (01:00)
[2017-11-21] MEDS: *HR* Enoxaparin 40 MG/0.4 ML SYRINGE SQ SCH (05:30)
[2017-11-21] MEDS: Piperacillin/Tazobactam 3.375 GM in 0.9 % Sodium Chloride Mini Bag 100 ML IVPB SCH ×3 (05:31→23:07)
[2017-11-21 06:29] LABS: Basophils % 0.3 %; Hematocrit 40.4 % (37.5-50.1); Hemoglobin 13.1 g/dL (12.9-16.9); Immature Granulocytes % 0.2 % (0-4); Lymphocytes # 1.4 K/mcL (0.6-4.6); Lymphocytes % 24.7 %; Mean Corpuscular HGB Conc 32.4 g/dL (31.6-35.5); Mean Corpuscular Volume 89.4 fL (83.0-100.0); Mean Platelet Volume 11.7 fL (9.4-12.4); Monocytes # 0.5 K/mcL (0.0-1.3); Monocytes % 8.3 %; Neutrophils # 3.9 K/mcL (1.6-8.9); Platelet Count 121 K/mcL (140-400); Red Blood Count 4.52 M/mcL (4.19-5.50); Red Cell Distribution Width 13.5 % (11.5-14.5); Segmented Neutrophils % 66.5 %
[2017-11-21 06:45] LABS: BUN/Creatinine Ratio 13 (6-26); Blood Urea Nitrogen 6 mg/dL (6-20); Calcium 7.6 mg/dL (8.6-10.3); Carbon Dioxide 23 mEq/L (23-29); Chloride 109 mEq/L (98-107); Glucose 115 mg/dL (70-105); Osmolality,Calculated 281 (280-300); Potassium 3.1 mEq/L (3.5-5.1); Sodium 136 mEq/L (136-145); eGFR For African Americans > 60 (> 60); eGFR For Non-African Americans > 60 (> 60)
--- NOTE | 2017-11-21 09:37 | Internal Med Progress Note ---
<Anurag Vasquez - Last Filed: 11/21/17 16:32> Date of Encounter: 11/21/17 Time of Encounter: 09:35 - Assessment and plan (1) Sepsis Current Visit: Yes Status: Acute Assessment and plan: On admission patient met 3 SIRS criteria (Fever, tachycardia, and tachypnea) w/ lactic acid of 0.9. Currently patient is afebrile, no leukocytosis. Patient has normal respiratory rate but is requiring 4L of O2 support, tachycardic, and hypotensive. Sepsis source is most likely from either Viral Respiratory infection, Aspiration pna, UTI, or multifactorial. Cx came back positive for Human metapneumovir (RSV or parainfluenza). Currently providing respiratory support. Patient is high risk for aspiration pnueumonia. sputum cx and gram stain are pending. Empirically covering with Vanc and Zosyn. R Renal stent placed on 11/20/17 for 17 mm ureteropelvic junction stone drainage seen on CT on . Also hx is positive for MRSA in urine cx on 05/31/17. Current empiric abx treatment is adequate. Urine Cx are pending. - ct Vanc and Zosyn (Day 2) - concern for acute abdomen, CT abd/pelvis ordered w/ oral and IV contrast. renal function is normal with Cr 0.47. - continue providing respiratory support - will continue to follow morning labs, and vitals closely - Sputum and Urine Cx - pending - ct IVF hydration Qualifiers: Sepsis type: sepsis due to unspecified organism Qualified Code(s): A41.9 - Sepsis, unspecified organism (2) Viral respiratory infection Current Visit: Yes Status: Acute Assessment and plan: see above (3) Acute respiratory failure with hypoxia Current Visit: Yes Status: Acute Assessment and plan: see above (4) Aspiration pneumonia due to food (regurgitated) Current Visit: Yes Status: Suspected Assessment and plan: see above Qualifiers: Laterality: bilateral Lung location: lower lobe of lung Qualified Code(s) : J69.0 - Pneumonitis due to inhalation of food and vomit (5) PEG (percutaneous endoscopic gastrostomy) status Current Visit: Yes Status: Chronic (6) Renal calculi Current Visit: Yes Status: Acute Assessment and plan: see above. Urology is following. (7) DVT prophylaxis Current Visit: Yes Status: Acute Assessment and plan: ct. SQ lovenox (8) Hypokalemia Current Visit: Yes Status: Acute Assessment and plan: Today K+ is 3.1, most likely due to hemodilution. Discussed with Nutrition, giving liquid replacement through PEG. - Time Spent With Patient Total time spent is greater than 50% in coordination of care (as documented) at patient's floor/unit and/or counseling patient: - Subjective Interval history: Mr Beck was seen and examined. Patient was seen prior to EEG. The overnight nurse, and day nurse expressed concern of "irregular air" sounds coming from the abdomen that started last night. Otherwise no events overnight. Patient was sleeping during encounter and was non-verbal during encounter. *Update - SBP taken by nurse was ~140's - Constitutional Vitals: Temp Pulse Resp BP Pulse Ox 98.9 F 127 18 99/68 97 11/21/17 07:20 11/21/17 07:20 11/21/17 07:20 11/21/17 07:20 11/21/17 08:20 General appearance: Present: no acute distress. Absent: answers questions appropriately - Head Head exam: Present: normal inspection - Respiratory Respiratory exam: Present: decreased breath sounds, rhonchi - Cardiovascular Cardiovascular exam: Present: tachycardia - GI/Abdominal GI/Abdominal exam: Present: hypoactive bowel sounds, soft Additional comments: intermittent gurgling sounds with inspiratory efforts near PEG tube. PEG tube on LUQ clean and dry, and Colostomy in LUQ clean, dry and draining. Colostomy bag had stool present but no air in bag. - Extremities Exam Extremities exam: Absent: pedal edema Internal Medicine: Result - Labs CBC & Chem 7: 11/21/17 06:16 11/21/17 06:16 Labs: Short CBC 11/20/17 11/21/17 Range/Units 10:23 06:16 WBC 6.7 5.8 (4.3-11.1) K/mcL Hgb 13.0 D 13.1 (12.9-16.9) g/dL Hct 41.2 40.4 (37.5-50.1) % Plt Count 135 L 121 L (140-400) K/mcL Neutrophils # 5.2 3.9 (1.6-8.9) K/mcL BMP 04/08/18 04/09/18 10:07 06:16 Sodium 142 136 Potassium 3.3 L 3.1 L Chloride 116 H 109 H Carbon Dioxide 19 L 23 BUN 9 6 Creatinine 0.60 L 0.47 L Glucose 101 115 H Calcium 7.9 L 7.6 L - Impressions Impressions Retrograde Pyelogram 11/20/17 00:00 IMPRESSION: Intraprocedural fluoroscopic spot images as above. See separate procedure report for more information. D/ / 11/20/2017 09:28:34 Maya Wiley MD / [email or web address] Interpreting Provider: Maya Wiley MD Consult Discharge Plan - Plan Referrals: NONE,PCP [Primary Care Provider] - (patient is from [facility]) <Clemente Nowak - Last Filed: 11/21/17 18:15> Date of Encounter: 11/21/17 - Assessment and plan (1) Acute respiratory failure with hypoxia Current Visit: Yes Status: Acute (2) Acute bronchiolitis due to human metapneumovirus Current Visit: Yes Status: Acute (3) Sepsis Current Visit: Yes Status: Acute Qualifiers: Sepsis type: sepsis due to unspecified organism Qualified Code(s): A41.9 - Sepsis, unspecified organism (4) Aspiration pneumonia due to food (regurgitated) Current Visit: Yes Status: Suspected Qualifiers: Laterality: bilateral Lung location: lower lobe of lung Qualified Code(s) : J69.0 - Pneumonitis due to inhalation of food and vomit (5) UTI (urinary tract infection) Current Visit: No Status: Acute Qualifiers: Urinary tract infection type: acute cystitis Hematuria presence: with hematuria Qualified Code(s): N30.01 - Acute cystitis with hematuria (6) PEG (percutaneous endoscopic gastrostomy) status Current Visit: Yes Status: Chronic (7) Tachycardia Current Visit: Yes Status: Acute (8) Renal calculi Current Visit: Yes Status: Acute - Time Spent With Patient Total time spent is greater than 50% in coordination of care (as documented) at patient's floor/unit and/or counseling patient: - Constitutional Vitals: Temp Pulse Resp BP Pulse Ox 99.9 F H 116 18 109/75 96 11/21/17 16:38 11/21/17 16:38 11/21/17 16:38 11/21/17 16:38 11/21/17 16:38 Internal Medicine: Result - Labs CBC & Chem 7: 11/21/17 06:16 11/21/17 06:16 Labs: Short CBC 11/21/17 Range/Units 06:16 WBC 5.8 (4.3-11.1) K/mcL Hgb 13.1 (12.9-16.9) g/dL Hct 40.4 (37.5-50.1) % Plt Count 121 L (140-400) K/mcL Neutrophils # 3.9 (1.6-8.9) K/mcL BMP 11/21/17 06:16 Sodium 136 Potassium 3.1 L Chloride 109 H Carbon Dioxide 23 BUN 6 Creatinine 0.47 L Glucose 115 H Calcium 7.6 L - Impressions Impressions Abdomen/Pelvis CT 11/21/17 14:00 IMPRESSION: 1. No acute findings within the abdomen or pelvis. No evidence of free intraperitoneal air. No evidence of bowel obstruction or significant inflammatory process. Stable left lower quadrant colostomy and gastrostomy tube. 2. Bilateral lower lobe opacification concerning for infiltrate and/or atelectasis. 3. Right-sided ureteral stent in place with calculus in the right renal pelvis and interval decrease in right hydronephrosis. 4. Bladder wall thickening and mild infiltration of the pericystic fat concerning for cystitis. Piper in place. D/ / 11/21/2017 16:49:33 Noman Waggoner MD / [email or web address] Interpreting Provider: Noman Waggoner MD - Attending Attestation I examined this patient and my medical decision-making was reviewed with the Resident Physician on 11/21/17. I agree with the documented findings, disposition and treatment plan as described except to the extent set forth below. Mr Beck has been admitted for sepsis and pneumonia as well as renal stone. He remains moderate to high risk due to potential for worsening clinical status. Mr Beck is resting comfortably. He is still tachycardic and has a lot of chest congestion. No fever or chills. ? abdominal issue - CT ordered. Exam alert Appears comfortable Mucus membranes dry Heart tachy Lungs with rhonchi Abd soft I/P 1. Sepsis 2. Human metapneumonvirus Further diagnoses and plan as above.
[2017-11-21] MEDS ORDERED: Potassium Chloride Elixir 20 MEQ/15 ML UDC PO ONE (10:02)
[2017-11-21] MEDS: levETIRAcetam 500 MG/5 ML UDC GTUBE SCH ×2 (10:45→23:07)
[2017-11-21 12:13] LABS: Magnesium 1.6 mg/dL (1.6-2.6)
--- NOTE | 2017-11-21 16:09 | Urology Progress Note ---
Date of Encounter: 11/21/17 Time of Encounter: 16:06 - Assessment and Plan (1) Renal calculi Current Visit: Yes Status: Acute Assessment and plan: s/p right ureteral stent placement. POD #1. 1. Continue antibiotics. 2. Urine culture was negative from kidney. 3. Will arrange for outpatient right ureteroscopy. (2) UTI (urinary tract infection) Current Visit: No Status: Acute Qualifiers: Urinary tract infection type: acute cystitis Hematuria presence: with hematuria Qualified Code(s): N30.01 - Acute cystitis with hematuria Progress Note Narrative: Postop day #1 status post cystoscopy and right ureteral stent placement. Doing well. Objective Initial Vital Signs Temp Pulse Resp BP Pulse Ox 100.4 F H 147 20 126/87 95 11/19/17 19:41 11/19/17 19:41 11/19/17 19:41 11/19/17 19:41 11/19/17 19:41 - General physical appearance Present: well developed, well nourished, no distress - Respiratory Present: normal respiratory effort - Abdomen Present: soft - Genitourinary Urine Appearance: Present: Clear - Labs 11/21/17 06:16 11/21/17 06:16 Diabetes panel 11/21/17 Range/Units 06:16 Sodium 136 (136-145) mEq/L Potassium 3.1 L (3.5-5.1) mEq/L Chloride 109 H (98-107) mEq/L Carbon Dioxide 23 (23-29) mEq/L BUN 6 (6-20) mg/dL Creatinine 0.47 L (0.70-1.30) mg/dL Glucose 115 H (70-105) mg/dL Calcium 7.6 L (8.6-10.3) mg/dL Calcium panel 11/21/17 Range/Units 06:16 Calcium 7.6 L (8.6-10.3) mg/dL Pituitary panel 11/21/17 Range/Units 06:16 Sodium 136 (136-145) mEq/L Potassium 3.1 L (3.5-5.1) mEq/L Chloride 109 H (98-107) mEq/L Carbon Dioxide 23 (23-29) mEq/L BUN 6 (6-20) mg/dL Creatinine 0.47 L (0.70-1.30) mg/dL Glucose 115 H (70-105) mg/dL Calcium 7.6 L (8.6-10.3) mg/dL Adrenal panel 11/21/17 Range/Units 06:16 Sodium 136 (136-145) mEq/L Potassium 3.1 L (3.5-5.1) mEq/L Chloride 109 H (98-107) mEq/L Carbon Dioxide 23 (23-29) mEq/L BUN 6 (6-20) mg/dL Creatinine 0.47 L (0.70-1.30) mg/dL Glucose 115 H (70-105) mg/dL Calcium 7.6 L (8.6-10.3) mg/dL Consult Discharge Plan - Plan Referrals: NONE,PCP [Primary Care Provider] - (patient is from [facility])
--- NOTE | 2017-11-21 17:12 | EEG/EMG/Oth Biometrics Report ---
EEG Procedure Report Date of procedure: 11/21/17 EEG Procedure: Routine EEG Procedure Note: Report: This EEG was acquired with standard international 10-20 electrode placement system with EKG recording. The background activity during this EEG was replaced by a mixture of theta and delta activity with best frequency up to 6-7 Hz. The background activity was reactive to movements. Sleep stages were not fully identified. There are no electrographic seizures identified during this tracing. There are no epileptiform discharges and focal slowing noted during this recording. Electrode T5 was causing motion artefact during the recording. Photic stimulation produced rhythmic frontal sharp/slow wave activity, with frequency of 4 Hz, persisted after cessation of photic stimulation approximately 4-5 seconds at 8Hz. EKG tracing showed cardiac sinus tachycardia. Impression: This is an abnormal EEG due to presence of moderate diffuse background slowing and the presence of photoparoxysmal response with frequency of 4 Hz at photic stimulation 8Hz. Clinical Correlation: This EEG is consistent with moderate diffuse cerebral dysfunction that can be seen in patients with encephalopathy, metabolic/toxic, electrolyte derangement, or mental retardation. The presence of photoparoxysmal response during photic stimulation at 8Hz can be associated with increased susceptibility of a generalized seizure disorder. Clinical correlation suggested.
[2017-11-22] MEDS: Ipratropium/Albuterol Neb 3 ML IH SCH ×6 (03:52→23:32)
[2017-11-22 05:08] LABS: Basophils % 0.2 %; Eosinophils % 0.2 %; Hematocrit 36.8 % (37.5-50.1); Hemoglobin 12.2 g/dL (12.9-16.9); Immature Granulocytes % 0.2 % (0-4); Lymphocytes # 1.7 K/mcL (0.6-4.6); Lymphocytes % 36.5 %; Mean Corpuscular HGB Conc 33.2 g/dL (31.6-35.5); Mean Corpuscular Hemoglobin 28.8 pg (28.0-33.3); Mean Corpuscular Volume 86.8 fL (83.0-100.0); Mean Platelet Volume 11.6 fL (9.4-12.4); Monocytes # 0.5 K/mcL (0.0-1.3); Monocytes % 10.3 %; Neutrophils # 2.4 K/mcL (1.6-8.9); Platelet Count 126 K/mcL (140-400); Red Blood Count 4.24 M/mcL (4.19-5.50); Red Cell Distribution Width 13.6 % (11.5-14.5); Segmented Neutrophils % 52.6 %
[2017-11-22] MEDS: Piperacillin/Tazobactam 3.375 GM in 0.9 % Sodium Chloride Mini Bag 100 ML IVPB SCH ×3 (05:15→21:40)
[2017-11-22] MEDS: *HR* Enoxaparin 40 MG/0.4 ML SYRINGE SQ SCH (05:17)
[2017-11-22 05:23] LABS: BUN/Creatinine Ratio 11 (6-26); Blood Urea Nitrogen 5 mg/dL (6-20); Calcium 7.7 mg/dL (8.6-10.3); Carbon Dioxide 25 mEq/L (23-29); Chloride 107 mEq/L (98-107); Glucose 108 mg/dL (70-105); Osmolality,Calculated 284 (280-300); Potassium 2.7 mEq/L (3.5-5.1); Sodium 138 mEq/L (136-145); eGFR For African Americans > 60 (> 60); eGFR For Non-African Americans > 60 (> 60)
[2017-11-22] MEDS ORDERED: Albuterol 2.5 MG/3 ML NEBULIZER IH PRN (05:56)
[2017-11-22] MEDS ORDERED: Potassium Chloride Elixir 20 MEQ/15 ML UDC GTUBE ONE (07:23)
[2017-11-22] MEDS: Acetylcysteine 10% 2 ML INHSOL IH SCH ×5 (07:39→23:32)
[2017-11-22 07:56] LABS: Magnesium 1.6 mg/dL (1.6-2.6)
[2017-11-22] MEDS: levETIRAcetam 500 MG/5 ML UDC GTUBE SCH ×2 (09:49→21:41)
[2017-11-22] MEDS: Nystatin POWDER 30 GM BOTTLE TP SCH (09:50)
--- NOTE | 2017-11-22 10:57 | Internal Med Progress Note ---
<Anurag Vasquez - Last Filed: 11/22/17 10:54> Date of Encounter: 11/22/17 Time of Encounter: 08:00 - Assessment and plan (1) Sepsis Current Visit: Yes Status: Acute Assessment and plan: On admission patient met 3 SIRS criteria (Fever, tachycardia, and tachypnea) w/ lactic acid of 0.9. Currently patient is afebrile, no leukocytosis. Patient has normal respiratory rate but is requiring 4.5L of O2 support, tachycardic, and hypotensive. U/A cultures came back negative, but does not rule out sterile pyuria from renal stone. Source remains unconfirmed, will continue empiric abx treatment at this time. Patient is clinically improving, and vitals are improving - ct Vanc and Zosyn (Day 3) - continue providing respiratory support - will continue to follow morning labs, and vitals closely - Sputum cx - pending - ct IVF hydration Qualifiers: Sepsis type: sepsis due to unspecified organism Qualified Code(s): A41.9 - Sepsis, unspecified organism (2) Viral respiratory infection Current Visit: Yes Status: Acute Assessment and plan: see above (3) Acute respiratory failure with hypoxia Current Visit: Yes Status: Acute Assessment and plan: see above (4) Aspiration pneumonia due to food (regurgitated) Current Visit: Yes Status: Suspected Assessment and plan: see above Qualifiers: Laterality: bilateral Lung location: lower lobe of lung Qualified Code(s) : J69.0 - Pneumonitis due to inhalation of food and vomit (5) PEG (percutaneous endoscopic gastrostomy) status Current Visit: Yes Status: Chronic (6) Renal calculi Current Visit: Yes Status: Acute Assessment and plan: see above. urology is following (7) DVT prophylaxis Current Visit: Yes Status: Acute Assessment and plan: ct SQ lovenox (8) Hypokalemia Current Visit: Yes Status: Acute Assessment and plan: K+ has further decreased today to 2.7. WIll replace with 80 mEq liquid through PEG - Time Spent With Patient Total time spent is greater than 50% in coordination of care (as documented) at patient's floor/unit and/or counseling patient: - Subjective Interval history: Mr Beck was seen and examined. Hx per chart review and nursing. No events overnight. Patient has become more responsive today. ROS unattainable due to mental status. - Constitutional Vitals: Temp Pulse Resp BP Pulse Ox 98.9 F 140 18 116/76 92 11/22/17 10:24 11/22/17 10:24 11/22/17 10:24 11/22/17 10:24 11/22/17 10:24 General appearance: Present: no acute distress. Absent: answers questions appropriately Exam: patient is smiling today and has ocular movement, but remains non-responsive to verbal stimulation - Head Head exam: Present: atraumatic, normal inspection - Respiratory Respiratory exam: Present: wheezes (diffuse expiratory wheezes) - Cardiovascular Cardiovascular exam: Present: RRR, +S1, +S2. Absent: diastolic murmur, gallop, rubs, systolic murmur - GI/Abdominal GI/Abdominal exam: Present: hypoactive bowel sounds. Absent: guarding Internal Medicine: Result - Labs CBC & Chem 7: 11/22/17 04:00 11/22/17 04:00 Labs: Short CBC 11/22/17 Range/Units 04:00 WBC 4.6 (4.3-11.1) K/mcL Hgb 12.2 L (12.9-16.9) g/dL Hct 36.8 L (37.5-50.1) % Plt Count 126 L (140-400) K/mcL Neutrophils # 2.4 (1.6-8.9) K/mcL BMP 11/21/17 11/22/17 06:16 04:00 Sodium 136 138 Potassium 3.1 L 2.7 L Chloride 109 H 107 Carbon Dioxide 23 25 BUN 6 5 L Creatinine 0.47 L 0.47 L Glucose 115 H 108 H Calcium 7.6 L 7.7 L - Impressions Impressions Abdomen/Pelvis CT 11/21/17 14:00 IMPRESSION: 1. No acute findings within the abdomen or pelvis. No evidence of free intraperitoneal air. No evidence of bowel obstruction or significant inflammatory process. Stable left lower quadrant colostomy and gastrostomy tube. 2. Bilateral lower lobe opacification concerning for infiltrate and/or atelectasis. 3. Right-sided ureteral stent in place with calculus in the right renal pelvis and interval decrease in right hydronephrosis. 4. Bladder wall thickening and mild infiltration of the pericystic fat concerning for cystitis. Piper in place. D/ / 11/21/2017 16:49:33 Noman Waggoner MD / isaías Interpreting Provider: Noman Waggoner MD Consult Discharge Plan - Plan Referrals: NONE,PCP [Primary Care Provider] - (patient is from [facility]) <Clemente Nowak - Last Filed: 11/22/17 17:13> Date of Encounter: 11/22/17 - Assessment and plan (1) Acute respiratory failure with hypoxia Current Visit: Yes Status: Acute (2) Acute bronchiolitis due to human metapneumovirus Current Visit: Yes Status: Acute (3) Sepsis Current Visit: Yes Status: Acute Qualifiers: Sepsis type: sepsis due to unspecified organism Qualified Code(s): A41.9 - Sepsis, unspecified organism (4) Aspiration pneumonia due to food (regurgitated) Current Visit: Yes Status: Suspected Qualifiers: Laterality: bilateral Lung location: lower lobe of lung Qualified Code(s) : J69.0 - Pneumonitis due to inhalation of food and vomit (5) UTI (urinary tract infection) Current Visit: No Status: Acute Qualifiers: Urinary tract infection type: acute cystitis Hematuria presence: with hematuria Qualified Code(s): N30.01 - Acute cystitis with hematuria (6) PEG (percutaneous endoscopic gastrostomy) status Current Visit: Yes Status: Chronic (7) Tachycardia Current Visit: Yes Status: Acute (8) Renal calculi Current Visit: Yes Status: Acute - Time Spent With Patient Total time spent is greater than 50% in coordination of care (as documented) at patient's floor/unit and/or counseling patient: - Constitutional Vitals: Temp Pulse Resp BP Pulse Ox 98.9 F 140 22 123/87 95 11/22/17 10:24 11/22/17 10:24 11/22/17 16:05 11/22/17 11:21 11/22/17 16:05 Internal Medicine: Result - Labs CBC & Chem 7: 11/22/17 04:00 11/22/17 04:00 Labs: Short CBC 11/22/17 Range/Units 04:00 WBC 4.6 (4.3-11.1) K/mcL Hgb 12.2 L (12.9-16.9) g/dL Hct 36.8 L (37.5-50.1) % Plt Count 126 L (140-400) K/mcL Neutrophils # 2.4 (1.6-8.9) K/mcL BMP 11/22/17 04:00 Sodium 138 Potassium 2.7 L Chloride 107 Carbon Dioxide 25 BUN 5 L Creatinine 0.47 L Glucose 108 H Calcium 7.7 L - Impressions Impressions Retrograde Pyelogram 11/20/17 00:00 IMPRESSION: Intraprocedural fluoroscopic spot images as above. See separate procedure report for more information. D/ / 11/20/2017 09:28:34 Maya Wiley MD / monster Interpreting Provider: Maya Wiley MD Abdomen/Pelvis CT 11/21/17 14:00 IMPRESSION: 1. No acute findings within the abdomen or pelvis. No evidence of free intraperitoneal air. No evidence of bowel obstruction or significant inflammatory process. Stable left lower quadrant colostomy and gastrostomy tube. 2. Bilateral lower lobe opacification concerning for infiltrate and/or atelectasis. 3. Right-sided ureteral stent in place with calculus in the right renal pelvis and interval decrease in right hydronephrosis. 4. Bladder wall thickening and mild infiltration of the pericystic fat concerning for cystitis. Piper in place. D/ / 11/21/2017 16:49:33 Noman Waggoner MD / isaías Interpreting Provider: Noman Waggoner MD Chest X-Ray 11/22/17 11:36 IMPRESSION: 1. Hiatal hernia. 2. Bibasilar atelectasis with chronic elevation of the right hemidiaphragm. D/ / Darshan Mcnair MD / Darshan Mcnair MD Interpreting Provider: Darshan Mcnair MD - Attending Attestation I examined this patient and my medical decision-making was reviewed with the Resident Physician on 11/22/17. I agree with the documented findings, disposition and treatment plan as described except to the extent set forth below. Mr Beck is currently admitted for sepsis related to pneumonia, human metapneumonvirus and urinary obstruction. He remains moderate to high risk due to potential for worsening clinical status. Mr Beck is resting comfortably. He still has a lot of congestion in his chest. No fever today. No GI issues. Exam alert. Mild resp distress Mucus membranes dry Heart tachy and regular Lungs with rhonchi I/P 1. Resp failure 2. Human metapneumonvirus infection. Further diagnoses and plan as above.
[2017-11-22] MEDS ORDERED: 0.9 % Sodium Chloride 1,000 ML IVC ONE (11:15)
[2017-11-22] MEDS ORDERED: Gentamicin 420 MG in 0.9 % Sodium Chloride 100 ML IVPB SCH (19:00)
[2017-11-23] MEDS: Nystatin POWDER 30 GM BOTTLE TP SCH ×3 (01:45→21:28)
[2017-11-23] MEDS: Acetylcysteine 10% 2 ML INHSOL IH SCH ×6 (03:29→23:38)
[2017-11-23] MEDS: Ipratropium/Albuterol Neb 3 ML IH SCH ×6 (03:29→23:38)
[2017-11-23] MEDS: Piperacillin/Tazobactam 3.375 GM in 0.9 % Sodium Chloride Mini Bag 100 ML IVPB SCH (05:29)
[2017-11-23] MEDS: *HR* Enoxaparin 40 MG/0.4 ML SYRINGE SQ SCH (05:30)
[2017-11-23 05:44] LABS: Hematocrit 38.1 % (37.5-50.1); Hemoglobin 12.5 g/dL (12.9-16.9); Mean Corpuscular HGB Conc 32.8 g/dL (31.6-35.5); Mean Corpuscular Hemoglobin 28.9 pg (28.0-33.3); Mean Platelet Volume 10.9 fL (9.4-12.4); Platelet Count 150 K/mcL (140-400); Red Blood Count 4.33 M/mcL (4.19-5.50); Red Cell Distribution Width 13.7 % (11.5-14.5)
[2017-11-23 06:04] LABS: BUN/Creatinine Ratio 6 (6-26); Blood Urea Nitrogen 7 mg/dL (6-20); Calcium 8.3 mg/dL (8.6-10.3); Carbon Dioxide 23 mEq/L (23-29); Chloride 114 mEq/L (98-107); Glucose 100 mg/dL (70-105); Osmolality,Calculated 296 (280-300); Potassium 3.5 mEq/L (3.5-5.1); Sodium 144 mEq/L (136-145); Vancomycin,Trough 20 mcg/mL (5-10); eGFR For African Americans > 60 (> 60); eGFR For Non-African Americans > 60 (> 60)
[2017-11-23] MEDS ORDERED: Vancomycin 1 EACH in 0.9 % Sodium Chloride 250 ML IVPB PRN (09:00)
[2017-11-23] MEDS: levETIRAcetam 500 MG/5 ML UDC GTUBE SCH ×2 (09:51→21:23)
[2017-11-23] MEDS ORDERED: Meropenem 1,000 MG in Water for inj. (sterile) 10 ML IVP SCH (10:00)
[2017-11-23] MEDS ORDERED: Meropenem 1,000 MG in Water for inj. (sterile) 20 ML 10 ML IVP SCH (10:00)
[2017-11-23] MEDS: Meropenem 1,000 MG in Water for inj. (sterile) 20 ML 10 ML IVP SCH ×2 (10:53→16:08)
[2017-11-23] MEDS ORDERED: 0.9 % Sodium Chloride 1,000 ML IVC ONE (11:33)
--- NOTE | 2017-11-23 11:40 | Internal Med Progress Note ---
Addendum entered and electronically signed by Anurag Vasquez DO 11/23/17 14:38: update: continue PEG tube feeding Original Note: <Anurag Vasquez - Last Filed: 11/23/17 12:34> Date of Encounter: 11/23/17 Time of Encounter: 08:30 - Assessment and plan (1) Sepsis Current Visit: Yes Status: Acute Assessment and plan: Patient was tachy, feverish, and low BP last night. Source most likely due to viral respiratory infection, aspiration pneumonia and possible skin infection. Erythematous ulcerations under waffle of colostomy during change today. Last night patient was started on gentamicin for double coverage of pseudomonas. - discussed with pharmacist, will switch patient to meropenem due to new onset of PARKER - hypotensive, will provide IVF fluid support - continue tele, and serial exams - will consult ID, as source is not definite Qualifiers: Sepsis type: sepsis due to unspecified organism Qualified Code(s): A41.9 - Sepsis, unspecified organism (2) Aspiration pneumonia due to food (regurgitated) Current Visit: Yes Status: Suspected Assessment and plan: see above Qualifiers: Laterality: bilateral Lung location: lower lobe of lung Qualified Code(s) : J69.0 - Pneumonitis due to inhalation of food and vomit (3) UTI (urinary tract infection) Current Visit: Yes Status: Acute Assessment and plan: Stent was placed earlier on admission, but sepsis is unlikely due to UTI. Possible sterile pyuria. - strict I/O Qualifiers: Urinary tract infection type: acute cystitis Hematuria presence: with hematuria Qualified Code(s): N30.01 - Acute cystitis with hematuria (4) Acute respiratory failure with hypoxia Current Visit: Yes Status: Acute Assessment and plan: most likely due to aspiration pna, patient is at high risk. see above (5) PEG (percutaneous endoscopic gastrostomy) status Current Visit: Yes Status: Chronic Assessment and plan: Held tube feedings for now (6) Tachycardia Current Visit: Yes Status: Acute Assessment and plan: EKG showed sinus tachycardia yesterday. Will closely monitor (7) Renal calculi Current Visit: Yes Status: Acute Assessment and plan: see above (8) Hypokalemia Current Visit: Yes Status: Acute Assessment and plan: resolved, will continue to follow (9) DVT prophylaxis Current Visit: Yes Status: Acute Assessment and plan: Ct SQ lovenox (10) Acute bronchiolitis due to human metapneumovirus Current Visit: Yes Status: Acute Assessment and plan: positive for metapneumovirus = RSV or parainfluenza - Time Spent With Patient Total time spent is greater than 50% in coordination of care (as documented) at patient's floor/unit and/or counseling patient: - Subjective Interval history: Mr Beck was seen and examined. Hx per chart review and nursing. Patient was smiling today. ROS unattainable due to mental status. - Constitutional Vitals: Temp Pulse Resp BP Pulse Ox 99.8 F H 84 22 90/58 96 11/23/17 06:38 11/23/17 03:26 11/23/17 11:12 11/23/17 06:38 11/23/17 11:12 General appearance: Present: no acute distress. Absent: answers questions appropriately - Head Head exam: Present: atraumatic, normocephalic - Respiratory Respiratory exam: Present: rhonchi, wheezes - Cardiovascular Cardiovascular exam: Present: tachycardia - GI/Abdominal GI/Abdominal exam: Present: normal bowel sounds Internal Medicine: Result - Labs CBC & Chem 7: 11/23/17 05:35 11/23/17 05:35 Labs: Short CBC 11/23/17 Range/Units 05:35 WBC 4.5 (4.3-11.1) K/mcL Hgb 12.5 L (12.9-16.9) g/dL Hct 38.1 (37.5-50.1) % Plt Count 150 (140-400) K/mcL BMP 11/23/17 05:35 Sodium 144 Potassium 3.5 Chloride 114 H Carbon Dioxide 23 BUN 7 Creatinine 1.11 Glucose 100 Calcium 8.3 L - Impressions Impressions Retrograde Pyelogram 11/20/17 00:00 IMPRESSION: Intraprocedural fluoroscopic spot images as above. See separate procedure report for more information. D/ / 11/20/2017 09:28:34 Maya Wiley MD / [email or web address] Interpreting Provider: Maya Wiley MD Chest X-Ray 11/22/17 11:36 IMPRESSION: 1. Hiatal hernia. 2. Bibasilar atelectasis with chronic elevation of the right hemidiaphragm. D/ / Darshan Mcnair MD / Darshan Mcnair MD Interpreting Provider: Darshan Mcnair MD Consult Discharge Plan - Plan Referrals: NONE,PCP [Primary Care Provider] - (patient is from [facility]) <Clemente Nowak - Last Filed: 11/23/17 16:40> Date of Encounter: 11/23/17 - Assessment and plan (1) Acute respiratory failure with hypoxia Current Visit: Yes Status: Acute (2) Sepsis Current Visit: Yes Status: Acute Qualifiers: Sepsis type: sepsis due to unspecified organism Qualified Code(s): A41.9 - Sepsis, unspecified organism (3) Acute bronchiolitis due to human metapneumovirus Current Visit: Yes Status: Acute (4) Aspiration pneumonia due to food (regurgitated) Current Visit: Yes Status: Suspected Qualifiers: Laterality: bilateral Lung location: lower lobe of lung Qualified Code(s) : J69.0 - Pneumonitis due to inhalation of food and vomit (5) PEG (percutaneous endoscopic gastrostomy) status Current Visit: Yes Status: Chronic (6) UTI (urinary tract infection) Current Visit: Yes Status: Acute Qualifiers: Urinary tract infection type: acute cystitis Hematuria presence: with hematuria Qualified Code(s): N30.01 - Acute cystitis with hematuria (7) Hypokalemia Current Visit: Yes Status: Acute (8) Tachycardia Current Visit: Yes Status: Acute (9) Renal calculi Current Visit: Yes Status: Acute (10) DVT prophylaxis Current Visit: Yes Status: Acute - Time Spent With Patient Total time spent is greater than 50% in coordination of care (as documented) at patient's floor/unit and/or counseling patient: - Constitutional Vitals: Temp Pulse Resp BP Pulse Ox 98.4 F 113 18 107/55 96 11/23/17 12:26 11/23/17 12:26 11/23/17 12:26 11/23/17 12:26 11/23/17 12:26 Internal Medicine: Result - Labs CBC & Chem 7: 11/23/17 05:35 11/23/17 05:35 Labs: Short CBC 11/23/17 Range/Units 05:35 WBC 4.5 (4.3-11.1) K/mcL Hgb 12.5 L (12.9-16.9) g/dL Hct 38.1 (37.5-50.1) % Plt Count 150 (140-400) K/mcL BMP 11/23/17 05:35 Sodium 144 Potassium 3.5 Chloride 114 H Carbon Dioxide 23 BUN 7 Creatinine 1.11 Glucose 100 Calcium 8.3 L - Impressions Impressions Retrograde Pyelogram 11/20/17 00:00 IMPRESSION: Intraprocedural fluoroscopic spot images as above. See separate procedure report for more information. D/ / 11/20/2017 09:28:34 Maya Wiley MD / monster Interpreting Provider: Maya Wiley MD - Attending Attestation I examined this patient and my medical decision-making was reviewed with the Resident Physician on 11/23/17. I agree with the documented findings, disposition and treatment plan as described except to the extent set forth below. Mr Beck is currently admitted for presumed aspiration pneumonia and renal lithiasis. He remains moderate to high risk due to potential for worsening clinical status. Mr Beck continued to have low grade temperature overnight. His heartrate decreased during the night. Has area of maceration around stoma. Exam Alert Comfortable at this time Mucus membranes dry Heart reg - not tachy now Some rhonchi Abd soft I/P 1. Human meta pneumovirus 2. Asp pneumonia Further diagnoses and plan as above.
[2017-11-24] MEDS: Meropenem 1,000 MG in Water for inj. (sterile) 20 ML 10 ML IVP SCH ×3 (00:59→16:39)
[2017-11-24] MEDS: Ipratropium/Albuterol Neb 3 ML IH SCH ×6 (03:27→23:34)
[2017-11-24] MEDS: Acetylcysteine 10% 2 ML INHSOL IH SCH ×6 (03:28→23:34)
[2017-11-24] MEDS: *HR* Enoxaparin 40 MG/0.4 ML SYRINGE SQ SCH (05:18)
[2017-11-24 08:56] LABS: Alanine Aminotransferase 29 Units/L (7-52); Albumin/Globulin Ratio 1.1 (1.1-2.2); Alkaline Phosphatase 58 Units/L (34-104); Aspartate Amino Transferase 27 Units/L (13-39); BUN/Creatinine Ratio 7 (6-26); Bilirubin,Total 0.5 mg/dL (0.3-1.0); Blood Urea Nitrogen 8 mg/dL (6-20); Calcium 8.4 mg/dL (8.6-10.3); Carbon Dioxide 24 mEq/L (23-29); Chloride 114 mEq/L (98-107); Globulin 2.8 g/dL (2.4-3.5); Glucose 93 mg/dL (70-105); Osmolality,Calculated 292 (280-300); Potassium 4.7 mEq/L (3.5-5.1); Sodium 142 mEq/L (136-145); Total Protein 5.8 g/dL (6.4-8.9); eGFR For African Americans > 60 (> 60); eGFR For Non-African Americans > 60 (> 60)
[2017-11-24 09:01] LABS: Hematocrit 38.1 % (37.5-50.1); Hemoglobin 12.7 g/dL (12.9-16.9); Mean Corpuscular HGB Conc 33.3 g/dL (31.6-35.5); Mean Corpuscular Hemoglobin 29.1 pg (28.0-33.3); Mean Corpuscular Volume 87.4 fL (83.0-100.0); Mean Platelet Volume 12.2 fL (9.4-12.4); Nucleated Red Blood Cells 0.2 /100 WBC (0); Platelet Count 133 K/mcL (140-400); Red Blood Count 4.36 M/mcL (4.19-5.50); Red Cell Distribution Width 14.2 % (11.5-14.5)
[2017-11-24] MEDS: levETIRAcetam 500 MG/5 ML UDC GTUBE SCH ×2 (09:01→20:56)
[2017-11-24] MEDS: Nystatin POWDER 30 GM BOTTLE TP SCH ×2 (09:01→21:00)
[2017-11-24 11:14] LABS: Eosinophils # 0.2 K/mcL (0.0-0.6); Lymphocytes # 2.4 K/mcL (0.6-4.6); Neutrophils # 4.5 K/mcL (1.6-8.9); Reactive Lymphocytes Present (Not Present)
[2017-11-24 11:16] LABS: Platelet Estimate Slight Decrease (Normal)
--- NOTE | 2017-11-24 13:36 | Internal Med Progress Note ---
<Anurag Vasquez - Last Filed: 11/24/17 13:33> Date of Encounter: 11/24/17 Time of Encounter: 08:00 - Assessment and plan (1) Sepsis Current Visit: Yes Status: Acute Assessment and plan: Patient clinically and vitally has drastically improved today. Mucus plug was most likely the cause of respiratory failure. Patient continues to be at high risk for aspiration pneumonia, will plan on watching for at least 1 more night. Night team D/C'ed PEG tube feedings, will restart feedings and closely monitor for aspiration. - continue abx (meropenem day 2, vanc day 5) - provide IVF for hypotensive support - continue tele, and serial exams - will continue PEG feeding, closely monitor for aspirations - will work on planned return to [place] Qualifiers: Sepsis type: sepsis due to unspecified organism Qualified Code(s): A41.9 - Sepsis, unspecified organism (2) Aspiration pneumonia due to food (regurgitated) Current Visit: Yes Status: Suspected Assessment and plan: see above Qualifiers: Laterality: bilateral Lung location: lower lobe of lung Qualified Code(s) : J69.0 - Pneumonitis due to inhalation of food and vomit (3) UTI (urinary tract infection) Current Visit: Yes Status: Acute Assessment and plan: unlikely. strict I/O Qualifiers: Urinary tract infection type: acute cystitis Hematuria presence: with hematuria Qualified Code(s): N30.01 - Acute cystitis with hematuria (4) Acute respiratory failure with hypoxia Current Visit: Yes Status: Acute Assessment and plan: see above (5) PEG (percutaneous endoscopic gastrostomy) status Current Visit: Yes Status: Chronic Assessment and plan: see above (6) Hypokalemia Current Visit: Yes Status: Acute Assessment and plan: resolved at this time. will continue to monitor (7) Tachycardia Current Visit: Yes Status: Acute Assessment and plan: currently resolved, will continue to follow. (8) Renal calculi Current Visit: Yes Status: Acute Assessment and plan: currently stable (9) DVT prophylaxis Current Visit: Yes Status: Acute Assessment and plan: Ct SQ lovenox (10) Acute bronchiolitis due to human metapneumovirus Current Visit: Yes Status: Acute Assessment and plan: see above, improving at this point. - Time Spent With Patient Total time spent is greater than 50% in coordination of care (as documented) at patient's floor/unit and/or counseling patient: - Subjective Interval history: Mr Beck was seen and examined. Hx per chart review and nursing. Overnight patient had a mucus plug removed and patient remained vitally stable. There was reported leak around jiménez cath, was adjusted by day time nurse and is no longer leaking. Patient today was smiling and laughing. Patient remains non- verbally responsive but most likely baseline. ROS unattainable due to mental status. - Constitutional Vitals: Temp Pulse Resp BP Pulse Ox 98.6 F 85 16 102/72 95 11/24/17 10:26 11/24/17 10:26 11/24/17 11:29 11/24/17 10:26 11/24/17 11:29 General appearance: Present: pleasant, no acute distress. Absent: answers questions appropriately Exam: patient was smiling and giggling today - Respiratory Respiratory exam: Present: rhonchi (improved since yesterday) - Cardiovascular Cardiovascular exam: Present: RRR - GI/Abdominal GI/Abdominal exam: Present: hypoactive bowel sounds Additional comments: colostomy bag draining with no excess of gas, PEG tube clean and dry Internal Medicine: Result - Labs CBC & Chem 7: 11/24/17 07:41 11/24/17 07:41 Labs: Short CBC 11/24/17 Range/Units 07:41 WBC 8.1 D (4.3-11.1) K/mcL Hgb 12.7 L (12.9-16.9) g/dL Hct 38.1 (37.5-50.1) % Plt Count 133 L (140-400) K/mcL Neutrophils # 4.5 (1.6-8.9) K/mcL BMP 11/24/17 07:41 Sodium 142 Potassium 4.7 Chloride 114 H Carbon Dioxide 24 BUN 8 Creatinine 1.15 Glucose 93 Calcium 8.4 L Liver Function 11/24/17 Range/Units 07:41 Total Bilirubin 0.5 (0.3-1.0) mg/dL AST 27 (13-39) Units/L ALT 29 (7-52) Units/L Alkaline Phosphatase 58 (34-104) Units/L Albumin 3.0 L (3.5-5.7) g/dL Consult Discharge Plan - Plan Referrals: NONE,PCP [Primary Care Provider] - (patient is from [facility]) <Clemente Nowak - Last Filed: 11/24/17 17:56> Date of Encounter: 11/24/17 - Assessment and plan (1) Acute respiratory failure with hypoxia Current Visit: Yes Status: Acute (2) Sepsis Current Visit: Yes Status: Acute Qualifiers: Sepsis type: sepsis due to unspecified organism Qualified Code(s): A41.9 - Sepsis, unspecified organism (3) Acute bronchiolitis due to human metapneumovirus Current Visit: Yes Status: Acute (4) Aspiration pneumonia due to food (regurgitated) Current Visit: Yes Status: Suspected Qualifiers: Laterality: bilateral Lung location: lower lobe of lung Qualified Code(s) : J69.0 - Pneumonitis due to inhalation of food and vomit (5) UTI (urinary tract infection) Current Visit: Yes Status: Acute Qualifiers: Urinary tract infection type: acute cystitis Hematuria presence: with hematuria Qualified Code(s): N30.01 - Acute cystitis with hematuria (6) PEG (percutaneous endoscopic gastrostomy) status Current Visit: Yes Status: Chronic (7) Hypokalemia Current Visit: Yes Status: Acute (8) Tachycardia Current Visit: Yes Status: Resolved (9) Renal calculi Current Visit: Yes Status: Acute (10) DVT prophylaxis Current Visit: Yes Status: Acute - Time Spent With Patient Total time spent is greater than 50% in coordination of care (as documented) at patient's floor/unit and/or counseling patient: - Constitutional Vitals: Temp Pulse Resp BP Pulse Ox 98.8 F 106 20 139/91 96 11/24/17 15:34 11/24/17 15:34 11/24/17 15:47 11/24/17 15:34 11/24/17 15:47 Internal Medicine: Result - Labs CBC & Chem 7: 11/24/17 07:41 11/24/17 07:41 Labs: Short CBC 11/24/17 Range/Units 07:41 WBC 8.1 D (4.3-11.1) K/mcL Hgb 12.7 L (12.9-16.9) g/dL Hct 38.1 (37.5-50.1) % Plt Count 133 L (140-400) K/mcL Neutrophils # 4.5 (1.6-8.9) K/mcL BMP 04/12/18 07:41 Sodium 142 Potassium 4.7 Chloride 114 H Carbon Dioxide 24 BUN 8 Creatinine 1.15 Glucose 93 Calcium 8.4 L Liver Function 11/24/17 Range/Units 07:41 Total Bilirubin 0.5 (0.3-1.0) mg/dL AST 27 (13-39) Units/L ALT 29 (7-52) Units/L Alkaline Phosphatase 58 (34-104) Units/L Albumin 3.0 L (3.5-5.7) g/dL - Attending Attestation I examined this patient and my medical decision-making was reviewed with the Resident Physician on 11/24/17. I agree with the documented findings, disposition and treatment plan as described except to the extent set forth below. Mr Beck is currently admitted for sepsis due to PNA. He remains moderate to high risk due to potential for worsening clinical status. Mr Beck is doing better today. He had a lot of issues last evening and improved after suctioning out a mucus plug. No fever at this time. Smiling and seems more interactive. Exam alert. Comfortable mucus membranes dry Heart not tachy Few rhonchi Abd soft I/P 1. Sepsis - improving 2. PNA Further diagnoses and plan as above.
--- NOTE | 2017-11-24 17:04 | Electrocardiograph Report ---
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
[2017-11-25] MEDS: Meropenem 1,000 MG in Water for inj. (sterile) 20 ML 10 ML IVP SCH ×4 (00:51→21:17)
[2017-11-25] MEDS: Ipratropium/Albuterol Neb 3 ML IH SCH ×6 (03:21→23:25)
[2017-11-25] MEDS: Acetylcysteine 10% 2 ML INHSOL IH SCH ×6 (03:22→23:26)
[2017-11-25] MEDS: *HR* Enoxaparin 40 MG/0.4 ML SYRINGE SQ SCH (05:18)
[2017-11-25 05:39] LABS: Basophils % 0.3 %; Eosinophils # 0.1 K/mcL (0.0-0.6); Eosinophils % 2.1 %; Hematocrit 37.3 % (37.5-50.1); Hemoglobin 12.3 g/dL (12.9-16.9); Immature Granulocytes % 0.6 % (0-4); Lymphocytes # 1.8 K/mcL (0.6-4.6); Lymphocytes % 26.3 %; Mean Corpuscular Hemoglobin 28.9 pg (28.0-33.3); Mean Corpuscular Volume 87.8 fL (83.0-100.0); Mean Platelet Volume 11.1 fL (9.4-12.4); Monocytes # 0.6 K/mcL (0.0-1.3); Monocytes % 8.9 %; Nucleated Red Blood Cells 0.3 /100 WBC (0); Platelet Count 161 K/mcL (140-400); Red Blood Count 4.25 M/mcL (4.19-5.50); Red Cell Distribution Width 14.1 % (11.5-14.5); Segmented Neutrophils % 61.8 %
[2017-11-25 05:41] LABS: Neutrophils # 4.1 K/mcL (1.6-8.9)
[2017-11-25 05:57] LABS: BUN/Creatinine Ratio 9 (6-26); Blood Urea Nitrogen 10 mg/dL (6-20); Calcium 8.8 mg/dL (8.6-10.3); Carbon Dioxide 26 mEq/L (23-29); Chloride 108 mEq/L (98-107); Glucose 115 mg/dL (70-105); Osmolality,Calculated 292 (280-300); Potassium 3.1 mEq/L (3.5-5.1); Sodium 141 mEq/L (136-145); eGFR For African Americans > 60 (> 60); eGFR For Non-African Americans > 60 (> 60)
[2017-11-25 06:02] LABS: Platelet Estimate Normal (Normal); Reactive Lymphocytes Present (Not Present)
[2017-11-25 06:04] LABS: Anisocytosis 1+ (Not Present)
--- NOTE | 2017-11-25 08:10 | Physician Discharge Referral ---
ExtendedCare Referral Info Transfer To: [place] Provider in Charge after Transfer: PCP Institutional Level of Care: Skilled - Diagnosis (1) Sepsis Priority: Primary Status: Acute (2) Aspiration pneumonia due to food (regurgitated) Priority: Secondary Status: Suspected (3) UTI (urinary tract infection) Priority: Secondary Status: Acute (4) Acute respiratory failure with hypoxia Priority: Secondary Status: Acute (5) PEG (percutaneous endoscopic gastrostomy) status Priority: Secondary Status: Chronic (6) Hypokalemia Priority: Secondary Status: Acute (7) Tachycardia Priority: Secondary Status: Resolved (8) Renal calculi Priority: Secondary Status: Acute (9) Acute bronchiolitis due to human metapneumovirus Priority: Secondary Status: Acute (10) DVT prophylaxis Priority: Secondary Status: Acute - Transfer Medications Home Medications: Gabapentin [Neurontin] 800 mg GTUBE BID 06/01/17 [History] Multivit-Min/FA/Lycopen/Lutein [A Thru Z Select Multivit Tab] 1 tab GTUBE DAILY 06/01/17 [History] Polyethylene Glycol 3350 [MiraLAX] 17 gm GTUBE DAILY 06/01/17 [History] Simethicone 80 mg GTUBE BID 06/01/17 [History] Acetaminophen [Children's Pain-Fever] 640 mg GTUBE Q4HR PRN 11/19/17 [History] GuaiFENesin/Dextromethorphan [Robitussin/DM] 5 ml GTUBE Q4HR PRN 11/19/17 [ History] Hydrocortisone 1% CREAM [Cortaid] 1 appl TP DAILY PRN 11/19/17 [History] Metoclopramide [Reglan] 5 mg GTUBE Q6HR 11/19/17 [History] Omeprazole [PriLOSEC] 20 mg GTUBE DAILY 11/19/17 [History] Promethazine [Phenergan] 25 mg GTUBE Q6HR PRN 11/19/17 [History] Allergies/Adverse Reactions: 3 Allergy/AdvReac Type Severity Reaction Status Date / Time levofloxacin [From Levaquin] Allergy See Verified 11/19/17 14:37 Comments meperidine [From Demerol] Allergy See Verified 11/19/17 14:37 Comments ondansetron Allergy See Verified 11/19/17 14:37 [From Zofran (as Comments hydrochloride)] - Respiratory Orders Smoking Cessation: Smoking cessation has been advised. For more information, call the [place] Tobacco Quit Line at 5-460-PXFT-NOW. - Advance Directives Code Status: DNR-Comfort Care - Rehabiliation Orders Rehab Potential: Fair CERTIFICATION: I certify that the transfer of the above named patient to an Extended Care Facility is necessary for the continuing treatment of the diagnosis listed. The above information is true and accurate reflection of patient's current condition. Confidential - Redisclosure prohibited without a patient's written consent.
--- NOTE | 2017-11-25 08:22 | Discharge Summary ---
Orders not resulted at time of discharge: Pending orders 11/20/17 00:43 Culture,Sputum with Gram Stain [RM] Stat 11/22/17 19:39 Culture,Blood [BC] Stat Date of Encounter: 11/25/17 Time of Encounter: 08:11 - Discharge Diagnosis (1) Sepsis Priority: Primary Status: Acute Qualifiers: Sepsis type: sepsis due to unspecified organism Qualified Code(s): A41.9 - Sepsis, unspecified organism (2) DVT prophylaxis Priority: Secondary Status: Acute (3) Aspiration pneumonia due to food (regurgitated) Priority: Secondary Status: Suspected Qualifiers: Laterality: bilateral Lung location: lower lobe of lung Qualified Code(s) : J69.0 - Pneumonitis due to inhalation of food and vomit (4) UTI (urinary tract infection) Priority: Secondary Status: Acute Qualifiers: Urinary tract infection type: acute cystitis Hematuria presence: with hematuria Qualified Code(s): N30.01 - Acute cystitis with hematuria (5) Acute respiratory failure with hypoxia Priority: Secondary Status: Acute (6) PEG (percutaneous endoscopic gastrostomy) status Priority: Secondary Status: Chronic (7) Hypokalemia Priority: Secondary Status: Acute (8) Tachycardia Priority: Secondary Status: Resolved (9) Renal calculi Priority: Secondary Status: Acute (10) Acute bronchiolitis due to human metapneumovirus Priority: Secondary Status: Acute Hospital course: Mr. 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 Patient presented to [place] ED w/ hypoxia, worsening resp secretions and sepsis. Patient was transferred to [place] ED for Right Renal Calculi and sepsis management. On initial evaluation in ED, patient had green sputum production but no findings on CXR. Urology was immediately consulted, and patient had cystoscopy and right ureteral stent placement. Patient was started on Rocephin in ED, but due to concerns of HAP was started on empiric therapy with Vanc and Zosyn. On day 4 of hospitalization patient continued to meet SIRS criteria, and due to concerns of inappropriate coverage, Gentamicin was started for double Pseudomonas coverage. On day 5 of hospitalization, patient remained in respiratory distress. At this time a large mucus plug was removed and patient after this was vitally stable. He was monitored for a day further, prior to discharge. Patient had a Cr >0.30 the day after gentamicin was added. Vancomycin was renal dosed, and zosyn was switched to meropenem. Patient received 3 days of meropenem, 3 days of gentamicin, and 6 days of vancomycin coverage Neurology was also consulted due to hx of seizures and witnessed "flinching movements". It was believed that patient is well controlled on Keppra and most likely did not experience seizure Discharge discussed with: nurse, social work Time spent discussing smoking cessation with patient: more than 10 minutes - Time Spent with Patient Total time spent providing and/or coordinating discharge services: - Discharge Medications Home Medications: Gabapentin [Neurontin] 800 mg GTUBE BID 06/01/17 [History] Multivit-Min/FA/Lycopen/Lutein [A Thru Z Select Multivit Tab] 1 tab GTUBE DAILY 06/01/17 [History] Polyethylene Glycol 3350 [MiraLAX] 17 gm GTUBE DAILY 06/01/17 [History] Simethicone 80 mg GTUBE BID 06/01/17 [History] Acetaminophen [Children's Pain-Fever] 640 mg GTUBE Q4HR PRN 11/19/17 [History] GuaiFENesin/Dextromethorphan [Robitussin/DM] 5 ml GTUBE Q4HR PRN 11/19/17 [ History] Hydrocortisone 1% CREAM [Cortaid] 1 appl TP DAILY PRN 11/19/17 [History] Metoclopramide [Reglan] 5 mg GTUBE Q6HR 11/19/17 [History] Omeprazole [PriLOSEC] 20 mg GTUBE DAILY 11/19/17 [History] Promethazine [Phenergan] 25 mg GTUBE Q6HR PRN 11/19/17 [History] Allergies/Adverse Reactions: 3 Allergy/AdvReac Type Severity Reaction Status Date / Time levofloxacin [From Levaquin] Allergy See Verified 11/19/17 14:37 Comments meperidine [From Demerol] Allergy See Verified 11/19/17 14:37 Comments ondansetron Allergy See Verified 11/19/17 14:37 [From Zofran (as Comments hydrochloride)] Date of admission: 11/19/17 19:28 Primary care physician: PCP NONE Consults: 11/19/17 20:14 Consult to Nutrition [CONS] Stat Comment: Consulting Provider: NUTRITION Reason for Dietary Consult: Tube Feed Start & Manage Consult to [facility] [CONS] Routine Reason for SW Consult: [facility] 11/20/17 05:55 Consult to Neurology [CONS] Routine Consulting Provider: [facility] Reason for Consult: Admitted for sepsis and pneumonia. Hx of MRDD and seizures but not on any AEDs. Has had seizures on the floor during this admission. Patient started on Keppra and EEG ordered. Please evaluate and provide further recommendations. Thank-you Call Completed: No 11/21/17 09:44 Consult to Interpret Exam [CONS] Routine Consulting Provider: Norris Vu Consult to Interpret Exam: Interpret EEG 11/21/17 14:42 Consult to Invasive Line Access Team [CONS] Routine Reason for Consult: EPIV Line Type: EPIV 11/23/17 08:33 Consult to Wound Care [CONS] Routine Reason for Consult: Leaking colosotmy, excoriation. Call Completed: Yes 11/23/17 20:30 Consult to Urology [CONS] Routine Consulting Provider: Urology [facility] Reason for Consult: spasms around catheter causing urine to come out around catheter. Call Completed: No Discharging clinician: Anurag Vasquez Anticipated date of discharge: 11/25/17 - Constitutional Vitals: Temp Pulse Resp BP Pulse Ox 99.8 F H 90 18 111/80 94 11/25/17 07:30 11/25/17 07:30 11/25/17 07:30 11/25/17 07:30 11/25/17 07:30 General appearance: Present: pleasant, no acute distress, obese. Absent: answers questions appropriately - Head Head exam: Present: atraumatic, normocephalic - ENT ENT exam: Present: mucous membranes moist - Respiratory Respiratory exam: Present: wheezes (diffuse expiratory wheezes.) - Cardiovascular Cardiovascular exam: Present: RRR - GI/Abdominal GI/Abdominal exam: Present: normal bowel sounds Additional comments: LUQ colostomy and LUQ PEG tube are clean, dry and draining. - Patient Status Disposition: Transfer SNF Condition: Good Functional capacity at discharge: bed bound Overall status at discharge: patient is back to baseline - Discharge Instructions Follow Up With: NONE,PCP [Primary Care Provider] - (patient is from [facility]) - Diet and Activity Activity: increase activity as tolerated Diet: other (PEG feeding)
[2017-11-25] MEDS: Nystatin POWDER 30 GM BOTTLE TP SCH ×2 (09:28→21:18)
[2017-11-25] MEDS ORDERED: Potassium Chloride Elixir 20 MEQ/15 ML UDC GTUBE ONE (10:14)
[2017-11-25] MEDS: levETIRAcetam 500 MG/5 ML UDC GTUBE SCH ×2 (10:45→21:17)
[2017-11-25] MEDS: *HR* OxyCODONE Oral Soln 5 MG/5 ML UD.LIQ GTUBE PRN (12:23)
--- NOTE | 2017-11-25 13:11 | Internal Med Progress Note ---
Addendum entered and electronically signed by Anurag Vasquez DO 11/25/17 15:00: Update* spoke with surgery they recommended IR to convert PEG to J-tube. Discussed with IR, they recommended against extension, and recommended surgery to place direct jejunostomy. Will reconsult surgery tomorrow. Discussed feedings with nutrition, will adjust to osmolite at slower right at this time. Original Note: <Anurag Vasquez - Last Filed: 11/25/17 13:08> Date of Encounter: 11/25/17 Time of Encounter: 09:00 - Assessment and plan (1) Sepsis Current Visit: Yes Status: Acute Assessment and plan: Patient started to have respiratory distress this AM again after PEG tube feedings. - consult IR for PEG tube conversion into J Tube; INR ordered - patient had power wand fall out yesterday, have reordered - continue abx (meropenem day 3, vanc day 6) - provide IVF for hypotensive support - continue tele, and serial exams - hold feedings - will work on planned return to [place] Qualifiers: Sepsis type: sepsis due to unspecified organism Qualified Code(s): A41.9 - Sepsis, unspecified organism (2) DVT prophylaxis Current Visit: Yes Status: Acute Assessment and plan: Ct SQ lovenox (3) Aspiration pneumonia due to food (regurgitated) Current Visit: Yes Status: Suspected Assessment and plan: see above Qualifiers: Laterality: bilateral Lung location: lower lobe of lung Qualified Code(s) : J69.0 - Pneumonitis due to inhalation of food and vomit (4) UTI (urinary tract infection) Current Visit: Yes Status: Acute Assessment and plan: unlikely. strict I/O Qualifiers: Urinary tract infection type: acute cystitis Hematuria presence: with hematuria Qualified Code(s): N30.01 - Acute cystitis with hematuria (5) Acute respiratory failure with hypoxia Current Visit: Yes Status: Acute Assessment and plan: see above (6) PEG (percutaneous endoscopic gastrostomy) status Current Visit: Yes Status: Chronic Assessment and plan: see above (7) Hypokalemia Current Visit: Yes Status: Acute Assessment and plan: resolved at this time. will continue to monitor (8) Tachycardia Current Visit: Yes Status: Resolved Assessment and plan: currently resolved, will continue to follow. (9) Renal calculi Current Visit: Yes Status: Acute Assessment and plan: currently stable (10) Acute bronchiolitis due to human metapneumovirus Current Visit: Yes Status: Acute Assessment and plan: see above, improving at this point. - Time Spent With Patient Total time spent is greater than 50% in coordination of care (as documented) at patient's floor/unit and/or counseling patient: - Subjective Interval history: Mr Beck was seen and examined. Hx per chart review and nursing. Patient was stable overnight with no events. This AM patient had PEG tubes restarted, and again had respiratory difficulties. Patient remains non-verbally responsive but most likely baseline. ROS unattainable due to mental status. - Constitutional Vitals: Temp Pulse Resp BP Pulse Ox 99.8 F H 90 18 111/80 96 11/25/17 07:30 11/25/17 07:30 11/25/17 11:17 11/25/17 07:30 11/25/17 11:17 General appearance: Present: pleasant, no acute distress, obese. Absent: answers questions appropriately - Head Head exam: Present: atraumatic, normocephalic - ENT ENT exam: Present: mucous membranes moist - Respiratory Respiratory exam: Present: rhonchi, wheezes - Cardiovascular Cardiovascular exam: Present: RRR Internal Medicine: Result - Labs CBC & Chem 7: 11/25/17 05:11 11/25/17 05:11 Labs: Short CBC 11/25/17 Range/Units 05:11 WBC 6.7 (4.3-11.1) K/mcL Hgb 12.3 L (12.9-16.9) g/dL Hct 37.3 L (37.5-50.1) % Plt Count 161 (140-400) K/mcL Neutrophils # 4.1 (1.6-8.9) K/mcL BMP 11/25/17 05:11 Sodium 141 Potassium 3.1 L D Chloride 108 H Carbon Dioxide 26 BUN 10 Creatinine 1.08 Glucose 115 H Calcium 8.8 Consult Discharge Plan - Plan Referrals: NONE,PCP [Primary Care Provider] - (patient is from [facility]) <Clemente Nowak - Last Filed: 11/25/17 18:18> Date of Encounter: 11/25/17 - Assessment and plan (1) Acute respiratory failure with hypoxia Current Visit: Yes Status: Acute (2) Sepsis Current Visit: Yes Status: Resolved Qualifiers: Sepsis type: sepsis due to unspecified organism Qualified Code(s): A41.9 - Sepsis, unspecified organism (3) Acute bronchiolitis due to human metapneumovirus Current Visit: Yes Status: Acute (4) Aspiration pneumonia due to food (regurgitated) Current Visit: Yes Status: Suspected Qualifiers: Laterality: bilateral Lung location: lower lobe of lung Qualified Code(s) : J69.0 - Pneumonitis due to inhalation of food and vomit (5) UTI (urinary tract infection) Current Visit: Yes Status: Acute Qualifiers: Urinary tract infection type: acute cystitis Hematuria presence: with hematuria Qualified Code(s): N30.01 - Acute cystitis with hematuria (6) PEG (percutaneous endoscopic gastrostomy) status Current Visit: Yes Status: Chronic (7) Hypokalemia Current Visit: Yes Status: Acute (8) Tachycardia Current Visit: Yes Status: Resolved (9) Renal calculi Current Visit: Yes Status: Acute (10) DVT prophylaxis Current Visit: Yes Status: Acute - Time Spent With Patient Total time spent is greater than 50% in coordination of care (as documented) at patient's floor/unit and/or counseling patient: - Constitutional Vitals: Temp Pulse Resp BP Pulse Ox 99.0 F 115 18 117/79 94 11/25/17 16:12 11/25/17 16:12 11/25/17 16:12 11/25/17 16:12 11/25/17 16:12 Internal Medicine: Result - Labs CBC & Chem 7: 11/25/17 05:11 11/25/17 05:11 Labs: Short CBC 11/25/17 Range/Units 05:11 WBC 6.7 (4.3-11.1) K/mcL Hgb 12.3 L (12.9-16.9) g/dL Hct 37.3 L (37.5-50.1) % Plt Count 161 (140-400) K/mcL Neutrophils # 4.1 (1.6-8.9) K/mcL BMP 11/25/17 05:11 Sodium 141 Potassium 3.1 L D Chloride 108 H Carbon Dioxide 26 BUN 10 Creatinine 1.08 Glucose 115 H Calcium 8.8 - ABG Interpretation ABG results: PT/INR, D-dimer PT 10.6 Seconds (9.4-12.1) 11/25/17 13:19 - Attending Attestation I examined this patient and my medical decision-making was reviewed with the Resident Physician on 11/25/17. I agree with the documented findings, disposition and treatment plan as described except to the extent set forth below. Mr Beck is currently admitted for sepsis due to PNA and viral infection. He remains moderate to high risk due to potential for worsening clinical status. Mr Beck has increased secretions since restarting tube feeds. He does not like to have his head up. No fever or chills. Exam alert Comfortable Mucus membranes dry Heart not tachy Rhonchi bilaterally Abd soft I/P 1. Sepsis improved 2. Probable recurrent aspiration - will discuss changing to J tube. Further diagnoses and plan as above.
[2017-11-25 14:01] LABS: Prothrombin Time 10.6 Seconds (9.4-12.1)
[2017-11-25] MEDS: 0.9 % Sodium Chloride 1,000 ML IVC SCH (16:21)
[2017-11-26] MEDS: Acetylcysteine 10% 2 ML INHSOL IH SCH ×6 (03:36→23:17)
[2017-11-26] MEDS: Ipratropium/Albuterol Neb 3 ML IH SCH ×6 (03:36→23:16)
[2017-11-26] MEDS: Meropenem 1,000 MG in Water for inj. (sterile) 20 ML 10 ML IVP SCH ×3 (05:12→20:11)
[2017-11-26] MEDS: *HR* Enoxaparin 40 MG/0.4 ML SYRINGE SQ SCH (05:12)
[2017-11-26] MEDS: 0.9 % Sodium Chloride 1,000 ML IVC SCH ×3 (05:12→20:18)
[2017-11-26 06:54] LABS: BUN/Creatinine Ratio 8 (6-26); Blood Urea Nitrogen 8 mg/dL (6-20); Calcium 8.8 mg/dL (8.6-10.3); Carbon Dioxide 23 mEq/L (23-29); Chloride 107 mEq/L (98-107); Glucose 97 mg/dL (70-105); Osmolality,Calculated 284 (280-300); Potassium 3.7 mEq/L (3.5-5.1); Sodium 138 mEq/L (136-145); Vancomycin,Random 24 mcg/mL; eGFR For African Americans > 60 (> 60); eGFR For Non-African Americans > 60 (> 60)
[2017-11-26 06:56] LABS: Basophils % 0.4 %; Eosinophils # 0.2 K/mcL (0.0-0.6); Eosinophils % 1.8 %; Hematocrit 36.9 % (37.5-50.1); Hemoglobin 11.8 g/dL (12.9-16.9); Immature Granulocytes % 0.7 % (0-4); Lymphocytes # 1.7 K/mcL (0.6-4.6); Lymphocytes % 19.3 %; Mean Corpuscular Hemoglobin 28.3 pg (28.0-33.3); Mean Corpuscular Volume 88.5 fL (83.0-100.0); Mean Platelet Volume 11.2 fL (9.4-12.4); Monocytes # 0.8 K/mcL (0.0-1.3); Monocytes % 9.7 %; Neutrophils # 5.8 K/mcL (1.6-8.9); Platelet Count 169 K/mcL (140-400); Red Blood Count 4.17 M/mcL (4.19-5.50); Red Cell Distribution Width 13.9 % (11.5-14.5); Segmented Neutrophils % 68.1 %
--- NOTE | 2017-11-26 07:46 | Internal Med Progress Note ---
<Anurag Vasquez - Last Filed: 11/26/17 12:53> Date of Encounter: 11/26/17 Time of Encounter: 07:44 - Assessment and plan (1) Sepsis Current Visit: Yes Status: Resolved Assessment and plan: Sepsis most likely resolved at this point. Vitals remain stable and no leukocytosis. PEG tube feedings were most likely aspirating. Yesterday feedings were changed to osmolite which does not contain fiber, and is fast digesting. Patient had no respiratory distress with feeding. Will continue to provide support. - Consult Surgery on Tuesday for J-tube placement - power wand placed yesterday. Appears clean and intact - continue abx (meropenem day 4, vanc day 7) - provide IVF for hypotensive support - continue tele, and serial exams - watch respiratory function closely after PEG feedings - will work on planned return to [place] Qualifiers: Sepsis type: sepsis due to unspecified organism Qualified Code(s): A41.9 - Sepsis, unspecified organism (2) Aspiration pneumonia due to food (regurgitated) Current Visit: Yes Status: Suspected Assessment and plan: see above Qualifiers: Laterality: bilateral Lung location: lower lobe of lung Qualified Code(s) : J69.0 - Pneumonitis due to inhalation of food and vomit (3) UTI (urinary tract infection) Current Visit: Yes Status: Acute Assessment and plan: unlikely. strict I/O Qualifiers: Urinary tract infection type: acute cystitis Hematuria presence: with hematuria Qualified Code(s): N30.01 - Acute cystitis with hematuria (4) Acute respiratory failure with hypoxia Current Visit: Yes Status: Acute Assessment and plan: see above (5) PEG (percutaneous endoscopic gastrostomy) status Current Visit: Yes Status: Chronic Assessment and plan: see above (6) Hypokalemia Current Visit: Yes Status: Acute Assessment and plan: resolved at this time. will continue to monitor (7) Tachycardia Current Visit: Yes Status: Resolved Assessment and plan: currently resolved, will continue to follow. (8) Renal calculi Current Visit: Yes Status: Acute Assessment and plan: currently stable (9) DVT prophylaxis Current Visit: Yes Status: Acute Assessment and plan: Ct SQ lovenox (10) Acute bronchiolitis due to human metapneumovirus Current Visit: Yes Status: Acute Assessment and plan: see above, improving at this point. - Time Spent With Patient Total time spent is greater than 50% in coordination of care (as documented) at patient's floor/unit and/or counseling patient: - Subjective Interval history: Mr Beck was seen and examined. Hx per chart review and nursing. Patient was stable overnight with no events. Yesterday osmloite was started which contains no fiber for easier digestion. Patient had no difficulties with new feeding regmien. Patient responds to verbal stimuli. ROS unattainable due to mental status. - Constitutional Vitals: Temp Pulse Resp BP Pulse Ox 98.9 F 100 16 120/82 99 11/26/17 06:58 11/26/17 06:58 11/26/17 07:19 11/26/17 06:58 11/26/17 07:19 General appearance: Present: pleasant, no acute distress, obese. Absent: answers questions appropriately - Head Head exam: Present: normal inspection - ENT ENT exam: Present: mucous membranes moist - Respiratory Respiratory exam: Present: wheezes - Cardiovascular Cardiovascular exam: Present: RRR. Absent: systolic murmur - GI/Abdominal GI/Abdominal exam: Present: hypoactive bowel sounds Internal Medicine: Result - Labs CBC & Chem 7: 11/26/17 06:19 11/26/17 06:19 Labs: Short CBC 11/26/17 Range/Units 06:19 WBC 8.6 (4.3-11.1) K/mcL Hgb 11.8 L (12.9-16.9) g/dL Hct 36.9 L (37.5-50.1) % Plt Count 169 (140-400) K/mcL Neutrophils # 5.8 (1.6-8.9) K/mcL BMP 11/26/17 06:19 Sodium 138 Potassium 3.7 Chloride 107 Carbon Dioxide 23 BUN 8 Creatinine 1.00 Glucose 97 Calcium 8.8 - ABG Interpretation ABG results: PT/INR, D-dimer PT 10.6 Seconds (9.4-12.1) 11/25/17 13:19 Consult Discharge Plan - Plan Referrals: NONE,PCP [Primary Care Provider] - (patient is from [facility]) <Clemente Nowak - Last Filed: 11/26/17 17:04> Date of Encounter: 11/26/17 - Assessment and plan (1) Acute respiratory failure with hypoxia Current Visit: Yes Status: Acute (2) Acute bronchiolitis due to human metapneumovirus Current Visit: Yes Status: Acute (3) Aspiration pneumonia due to food (regurgitated) Current Visit: Yes Status: Suspected Qualifiers: Laterality: bilateral Lung location: lower lobe of lung Qualified Code(s) : J69.0 - Pneumonitis due to inhalation of food and vomit (4) Sepsis Current Visit: Yes Status: Resolved Qualifiers: Sepsis type: sepsis due to unspecified organism Qualified Code(s): A41.9 - Sepsis, unspecified organism (5) UTI (urinary tract infection) Current Visit: Yes Status: Resolved Qualifiers: Urinary tract infection type: acute cystitis Hematuria presence: with hematuria Qualified Code(s): N30.01 - Acute cystitis with hematuria (6) PEG (percutaneous endoscopic gastrostomy) status Current Visit: Yes Status: Chronic (7) Hypokalemia Current Visit: Yes Status: Resolved (8) Tachycardia Current Visit: Yes Status: Resolved (9) Renal calculi Current Visit: Yes Status: Acute (10) DVT prophylaxis Current Visit: Yes Status: Acute - Time Spent With Patient Total time spent is greater than 50% in coordination of care (as documented) at patient's floor/unit and/or counseling patient: - Constitutional Vitals: Temp Pulse Resp BP Pulse Ox 99.2 F 96 21 117/78 96 11/26/17 15:20 11/26/17 15:20 11/26/17 15:20 11/26/17 15:20 11/26/17 15:20 Internal Medicine: Result - Labs CBC & Chem 7: 11/26/17 06:19 11/26/17 06:19 Labs: Short CBC 11/26/17 Range/Units 06:19 WBC 8.6 (4.3-11.1) K/mcL Hgb 11.8 L (12.9-16.9) g/dL Hct 36.9 L (37.5-50.1) % Plt Count 169 (140-400) K/mcL Neutrophils # 5.8 (1.6-8.9) K/mcL BMP 11/26/17 06:19 Sodium 138 Potassium 3.7 Chloride 107 Carbon Dioxide 23 BUN 8 Creatinine 1.00 Glucose 97 Calcium 8.8 - ABG Interpretation ABG results: PT/INR, D-dimer PT 10.6 Seconds (9.4-12.1) 11/25/17 13:19 - Attending Attestation I examined this patient and my medical decision-making was reviewed with the Resident Physician on 11/26/17. I agree with the documented findings, disposition and treatment plan as described except to the extent set forth below. Mr Beck is currently admitted for sepsis and aspiration. He remains moderate to high risk due to potential for worsening clinical status. Mr Beck is comfortable at this time. No fever. Still with some secretions overnight but not as much. Exam alert Comfortable Mucus membranes moist Heart reg - not tachy Lungs with some rhonchi Abd soft I/P 1. Sepsis - resolved 2. Aspiration - tolerating current tube feeds Further diagnoses and plan as above.
[2017-11-26] MEDS: Nystatin POWDER 30 GM BOTTLE TP SCH ×2 (10:34→20:36)
[2017-11-26] MEDS: levETIRAcetam 500 MG/5 ML UDC GTUBE SCH ×2 (10:34→20:11)
[2017-11-26] MEDS: *HR* OxyCODONE Oral Soln 5 MG/5 ML UD.LIQ GTUBE PRN (12:17)
[2017-11-27] MEDS: 0.9 % Sodium Chloride 1,000 ML IVC SCH (02:56)
[2017-11-27] MEDS: Ipratropium/Albuterol Neb 3 ML IH SCH ×6 (03:24→23:55)
[2017-11-27] MEDS: Acetylcysteine 10% 2 ML INHSOL IH SCH ×6 (03:24→23:56)
[2017-11-27] MEDS: Meropenem 1,000 MG in Water for inj. (sterile) 20 ML 10 ML IVP SCH ×3 (04:15→20:00)
[2017-11-27 04:51] LABS: Basophils % 0.3 %; Eosinophils # 0.1 K/mcL (0.0-0.6); Eosinophils % 0.9 %; Hematocrit 34.7 % (37.5-50.1); Hemoglobin 11.3 g/dL (12.9-16.9); Immature Granulocytes % 0.8 % (0-4); Lymphocytes # 1.1 K/mcL (0.6-4.6); Lymphocytes % 14.9 %; Mean Corpuscular HGB Conc 32.6 g/dL (31.6-35.5); Mean Corpuscular Hemoglobin 28.4 pg (28.0-33.3); Mean Corpuscular Volume 87.2 fL (83.0-100.0); Mean Platelet Volume 10.9 fL (9.4-12.4); Monocytes # 0.6 K/mcL (0.0-1.3); Monocytes % 8.4 %; Neutrophils # 5.6 K/mcL (1.6-8.9); Platelet Count 200 K/mcL (140-400); Red Blood Count 3.98 M/mcL (4.19-5.50); Red Cell Distribution Width 13.7 % (11.5-14.5); Segmented Neutrophils % 74.7 %
[2017-11-27 05:16] LABS: BUN/Creatinine Ratio 8 (6-26); Blood Urea Nitrogen 8 mg/dL (6-20); Calcium 8.8 mg/dL (8.6-10.3); Carbon Dioxide 25 mEq/L (23-29); Chloride 107 mEq/L (98-107); Glucose 117 mg/dL (70-105); Osmolality,Calculated 293 (280-300); Potassium 3.5 mEq/L (3.5-5.1); Sodium 142 mEq/L (136-145); eGFR For African Americans > 60 (> 60); eGFR For Non-African Americans > 60 (> 60)
[2017-11-27] MEDS: *HR* Enoxaparin 40 MG/0.4 ML SYRINGE SQ SCH (06:22)
--- NOTE | 2017-11-27 07:56 | Internal Med Progress Note ---
<Anurag Vasquez - Last Filed: 11/27/17 11:02> Date of Encounter: 11/27/17 Time of Encounter: 07:53 - Assessment and plan (1) Sepsis Current Visit: Yes Status: Resolved Assessment and plan: Sepsis most likely resolved at this point. Vitals remain stable and no leukocytosis. PEG tube feedings were most likely aspirating. Patient continues to do well on new regimen Osmolite, without respiratory distress. Will work with nutrition to increase rate to meet nutritional needs. Will reevaluate tomorrow for need of J-Tube. - do not lay patient flat; head of bed elevated - continue abx (meropenem day 5) - D/C vancomycin (received 7 days) - provide IVF for hypotensive support - continue tele, and serial exams - watch respiratory function closely after PEG feedings - social work is working on placement Qualifiers: Sepsis type: sepsis due to unspecified organism Qualified Code(s): A41.9 - Sepsis, unspecified organism (2) DVT prophylaxis Current Visit: Yes Status: Acute Assessment and plan: Ct SQ lovenox (3) Aspiration pneumonia due to food (regurgitated) Current Visit: Yes Status: Suspected Assessment and plan: see above Qualifiers: Laterality: bilateral Lung location: lower lobe of lung Qualified Code(s) : J69.0 - Pneumonitis due to inhalation of food and vomit (4) UTI (urinary tract infection) Current Visit: Yes Status: Resolved Assessment and plan: unlikely. strict I/O Qualifiers: Urinary tract infection type: acute cystitis Hematuria presence: with hematuria Qualified Code(s): N30.01 - Acute cystitis with hematuria (5) Acute respiratory failure with hypoxia Current Visit: Yes Status: Acute Assessment and plan: see above (6) PEG (percutaneous endoscopic gastrostomy) status Current Visit: Yes Status: Chronic Assessment and plan: see above (7) Hypokalemia Current Visit: Yes Status: Resolved Assessment and plan: resolved at this time. will continue to monitor (8) Tachycardia Current Visit: Yes Status: Resolved Assessment and plan: currently resolved, will continue to follow. (9) Renal calculi Current Visit: Yes Status: Acute Assessment and plan: currently stable (10) Acute bronchiolitis due to human metapneumovirus Current Visit: Yes Status: Acute Assessment and plan: see above, improving at this point. - Time Spent With Patient Total time spent is greater than 50% in coordination of care (as documented) at patient's floor/unit and/or counseling patient: - Subjective Interval history: Mr Beck was seen and examined. Hx per chart review and nursing. Patient was stable overnight with no events. He did have an episode of tachycardia and hypertensive, but according to night nurse may be associated with him being layed flat. Patient continues to tolerate new feeding regimen without respiratory distress. ROS unattainable due to mental status. - Constitutional Vitals: Temp Pulse Resp BP Pulse Ox 99.6 F 99 18 123/93 93 11/27/17 07:05 11/27/17 07:05 11/27/17 07:05 11/27/17 07:05 11/27/17 07:05 General appearance: Present: pleasant, no acute distress, obese. Absent: answers questions appropriately - Head Head exam: Present: normal inspection - ENT ENT exam: Present: mucous membranes moist - Respiratory Respiratory exam: Present: CTAB (significant amount of transmitted breath sounds ) - Cardiovascular Cardiovascular exam: Present: RRR - GI/Abdominal GI/Abdominal exam: Present: hypoactive bowel sounds. Absent: guarding, tenderness Internal Medicine: Result - Labs CBC & Chem 7: 11/27/17 04:13 11/27/17 04:13 Labs: Short CBC 11/27/17 Range/Units 04:13 WBC 7.5 (4.3-11.1) K/mcL Hgb 11.3 L (12.9-16.9) g/dL Hct 34.7 L (37.5-50.1) % Plt Count 200 (140-400) K/mcL Neutrophils # 5.6 (1.6-8.9) K/mcL BMP 11/27/17 04:13 Sodium 142 Potassium 3.5 Chloride 107 Carbon Dioxide 25 BUN 8 Creatinine 1.00 Glucose 117 H Calcium 8.8 - ABG Interpretation ABG results: PT/INR, D-dimer PT 10.6 Seconds (9.4-12.1) 11/25/17 13:19 Consult Discharge Plan - Plan Referrals: NONE,PCP [Primary Care Provider] - (patient is from [facility]) <Clemente Nowak - Last Filed: 11/27/17 12:41> Date of Encounter: 11/27/17 - Assessment and plan (1) Acute respiratory failure with hypoxia Current Visit: Yes Status: Acute (2) Acute bronchiolitis due to human metapneumovirus Current Visit: Yes Status: Acute (3) Aspiration pneumonia due to food (regurgitated) Current Visit: Yes Status: Suspected Qualifiers: Laterality: bilateral Lung location: lower lobe of lung Qualified Code(s) : J69.0 - Pneumonitis due to inhalation of food and vomit (4) UTI (urinary tract infection) Current Visit: Yes Status: Resolved Qualifiers: Urinary tract infection type: acute cystitis Hematuria presence: with hematuria Qualified Code(s): N30.01 - Acute cystitis with hematuria (5) PEG (percutaneous endoscopic gastrostomy) status Current Visit: Yes Status: Chronic (6) Hypokalemia Current Visit: Yes Status: Resolved (7) Tachycardia Current Visit: Yes Status: Resolved (8) Renal calculi Current Visit: Yes Status: Acute (9) Sepsis Current Visit: Yes Status: Resolved Qualifiers: Sepsis type: sepsis due to unspecified organism Qualified Code(s): A41.9 - Sepsis, unspecified organism (10) DVT prophylaxis Current Visit: Yes Status: Acute - Time Spent With Patient Total time spent is greater than 50% in coordination of care (as documented) at patient's floor/unit and/or counseling patient: - Constitutional Vitals: Temp Pulse Resp BP Pulse Ox 98.2 F 92 20 116/76 100 11/27/17 11:04 11/27/17 11:04 11/27/17 11:59 11/27/17 11:04 11/27/17 11:59 Internal Medicine: Result - Labs CBC & Chem 7: 11/27/17 04:13 11/27/17 04:13 Labs: Short CBC 11/27/17 Range/Units 04:13 WBC 7.5 (4.3-11.1) K/mcL Hgb 11.3 L (12.9-16.9) g/dL Hct 34.7 L (37.5-50.1) % Plt Count 200 (140-400) K/mcL Neutrophils # 5.6 (1.6-8.9) K/mcL BMP 11/27/17 04:13 Sodium 142 Potassium 3.5 Chloride 107 Carbon Dioxide 25 BUN 8 Creatinine 1.00 Glucose 117 H Calcium 8.8 - ABG Interpretation ABG results: PT/INR, D-dimer PT 10.6 Seconds (9.4-12.1) 11/25/17 13:19 - Attending Attestation I examined this patient and my medical decision-making was reviewed with the Resident Physician on 11/27/17. I agree with the documented findings, disposition and treatment plan as described except to the extent set forth below. Mr Beck is currently admitted for sepsis due to PNA. He remains moderate to high risk due to potential for worsening clinical and respiratory status. Mr Beck appears to be doing OK. Less congestion today. Exam alert. Comfortable at this time. Mucus membranes dry Heart distant and not tachy Lungs with congestion Abd soft I/P 1. PNA 2. Sepsis resolved Tolerating current tube feed. Continue this for now. Further diagnoses and plan as above.
[2017-11-27] MEDS ORDERED: Aminoglycoside Consult 1 EACH MC ONE (09:08)
[2017-11-27] MEDS: levETIRAcetam 500 MG/5 ML UDC GTUBE SCH ×2 (09:54→20:44)
[2017-11-27] MEDS: Nystatin POWDER 30 GM BOTTLE TP SCH ×2 (09:55→20:44)
[2017-11-28] MEDS: 0.9 % Sodium Chloride 1,000 ML IVC SCH ×3 (01:34→18:26)
[2017-11-28] MEDS: Acetylcysteine 10% 2 ML INHSOL IH SCH ×6 (03:20→23:22)
[2017-11-28] MEDS: Ipratropium/Albuterol Neb 3 ML IH SCH ×6 (03:20→23:22)
[2017-11-28] MEDS: Meropenem 1,000 MG in Water for inj. (sterile) 20 ML 10 ML IVP SCH ×3 (05:18→20:09)
[2017-11-28] MEDS: *HR* Enoxaparin 40 MG/0.4 ML SYRINGE SQ SCH (05:21)
[2017-11-28 05:22] LABS: Basophils % 0.3 %; Eosinophils # 0.2 K/mcL (0.0-0.6); Eosinophils % 2.6 %; Hematocrit 34.6 % (37.5-50.1); Immature Granulocytes % 0.6 % (0-4); Lymphocytes # 1.1 K/mcL (0.6-4.6); Lymphocytes % 17.3 %; Mean Corpuscular HGB Conc 31.8 g/dL (31.6-35.5); Mean Corpuscular Hemoglobin 28.4 pg (28.0-33.3); Mean Corpuscular Volume 89.2 fL (83.0-100.0); Mean Platelet Volume 10.8 fL (9.4-12.4); Monocytes # 0.6 K/mcL (0.0-1.3); Monocytes % 9.6 %; Neutrophils # 4.6 K/mcL (1.6-8.9); Platelet Count 215 K/mcL (140-400); Red Blood Count 3.88 M/mcL (4.19-5.50); Red Cell Distribution Width 13.8 % (11.5-14.5); Segmented Neutrophils % 69.6 %
[2017-11-28 05:42] LABS: BUN/Creatinine Ratio 7 (6-26); Blood Urea Nitrogen 6 mg/dL (6-20); Calcium 8.9 mg/dL (8.6-10.3); Carbon Dioxide 27 mEq/L (23-29); Chloride 111 mEq/L (98-107); Glucose 117 mg/dL (70-105); Osmolality,Calculated 295 (280-300); Potassium 3.4 mEq/L (3.5-5.1); Sodium 143 mEq/L (136-145); eGFR For African Americans > 60 (> 60); eGFR For Non-African Americans > 60 (> 60)
--- NOTE | 2017-11-28 08:23 | Internal Med Progress Note ---
<Anurag Vasquez - Last Filed: 11/28/17 13:25> Date of Encounter: 11/28/17 Time of Encounter: 08:21 - Assessment and plan (1) Sepsis Current Visit: Yes Status: Resolved Assessment and plan: Sepsis most likely resolved at this point. Vitals remain stable and no leukocytosis. PEG tube feedings were most likely aspirating. Patient continues to do well on new regimen Osmolite, without respiratory distress. Will work with nutrition to increase rate to meet nutritional needs. Most likely will not need J-Tube if patient is able to tolerate osmolite without aspirating. - do not lay patient flat; head of bed elevated - continue abx (meropenem day 6) - provide IVF for hypotensive support - continue tele, and serial exams - watch respiratory function closely after PEG feedings - social work is working on placement Qualifiers: Sepsis type: sepsis due to unspecified organism Qualified Code(s): A41.9 - Sepsis, unspecified organism (2) Aspiration pneumonia due to food (regurgitated) Current Visit: Yes Status: Suspected Assessment and plan: see above Qualifiers: Laterality: bilateral Lung location: lower lobe of lung Qualified Code(s) : J69.0 - Pneumonitis due to inhalation of food and vomit (3) UTI (urinary tract infection) Current Visit: Yes Status: Resolved Assessment and plan: unlikely. strict I/O Qualifiers: Urinary tract infection type: acute cystitis Hematuria presence: with hematuria Qualified Code(s): N30.01 - Acute cystitis with hematuria (4) Acute respiratory failure with hypoxia Current Visit: Yes Status: Acute Assessment and plan: see above (5) PEG (percutaneous endoscopic gastrostomy) status Current Visit: Yes Status: Chronic Assessment and plan: see above (6) Hypokalemia Current Visit: Yes Status: Resolved Assessment and plan: resolved at this time. will continue to monitor (7) Tachycardia Current Visit: Yes Status: Resolved Assessment and plan: currently resolved, will continue to follow. (8) Renal calculi Current Visit: Yes Status: Acute Assessment and plan: currently stable (9) DVT prophylaxis Current Visit: Yes Status: Acute Assessment and plan: Ct SQ lovenox (10) Acute bronchiolitis due to human metapneumovirus Current Visit: Yes Status: Acute Assessment and plan: see above, improving at this point. - Time Spent With Patient Total time spent is greater than 50% in coordination of care (as documented) at patient's floor/unit and/or counseling patient: - Subjective Interval history: Mr Beck was seen and examined. Hx per chart review and nursing. Patient was stable overnight with no events. Patient is reported to be tolerating the new osmolite regimen without respiratory distress. ROS unattainable due to mental status. - Constitutional Vitals: Temp Pulse Resp BP Pulse Ox 99.1 F 83 18 118/78 98 11/28/17 07:10 11/28/17 07:10 11/28/17 07:25 11/28/17 07:10 11/28/17 07:25 General appearance: Present: pleasant, no acute distress, obese. Absent: answers questions appropriately - Head Head exam: Present: normal inspection - ENT ENT exam: Present: mucous membranes moist - Respiratory Respiratory exam: Present: CTAB - Cardiovascular Cardiovascular exam: Present: RRR - GI/Abdominal GI/Abdominal exam: Present: normal bowel sounds Additional comments: left side ostomy clean and draining. Left sided PEG tube clean and dry. Internal Medicine: Result - Labs CBC & Chem 7: 11/28/17 04:00 11/28/17 04:00 Labs: Short CBC 11/28/17 Range/Units 04:00 WBC 6.6 (4.3-11.1) K/mcL Hgb 11.0 L (12.9-16.9) g/dL Hct 34.6 L (37.5-50.1) % Plt Count 215 (140-400) K/mcL Neutrophils # 4.6 (1.6-8.9) K/mcL BMP 11/28/17 04:00 Sodium 143 Potassium 3.4 L Chloride 111 H Carbon Dioxide 27 BUN 6 Creatinine 0.91 Glucose 117 H Calcium 8.9 - ABG Interpretation ABG results: PT/INR, D-dimer PT 10.6 Seconds (9.4-12.1) 11/25/17 13:19 - Impressions Impressions Chest X-Ray 11/27/17 12:40 IMPRESSION: Low lung volumes. Right perihilar opacity, atelectasis favored over pneumonia. D/ / 11/27/2017 15:52:27 Orlando Anthony MD / sonali Interpreting Provider: Orlando Anthony MD Consult Discharge Plan - Plan Referrals: NONE,PCP [Primary Care Provider] - (patient is from [facility]) <Clemente Nowak - Last Filed: 11/28/17 16:42> Date of Encounter: 11/28/17 - Assessment and plan (1) Acute respiratory failure with hypoxia Current Visit: Yes Status: Acute (2) Acute bronchiolitis due to human metapneumovirus Current Visit: Yes Status: Acute (3) Aspiration pneumonia due to food (regurgitated) Current Visit: Yes Status: Suspected Qualifiers: Laterality: bilateral Lung location: lower lobe of lung Qualified Code(s) : J69.0 - Pneumonitis due to inhalation of food and vomit (4) Sepsis Current Visit: Yes Status: Resolved Qualifiers: Sepsis type: sepsis due to unspecified organism Qualified Code(s): A41.9 - Sepsis, unspecified organism (5) PEG (percutaneous endoscopic gastrostomy) status Current Visit: Yes Status: Chronic (6) Hypokalemia Current Visit: Yes Status: Resolved (7) Renal calculi Current Visit: Yes Status: Acute (8) UTI (urinary tract infection) Current Visit: Yes Status: Resolved Qualifiers: Urinary tract infection type: acute cystitis Hematuria presence: with hematuria Qualified Code(s): N30.01 - Acute cystitis with hematuria (9) DVT prophylaxis Current Visit: Yes Status: Acute (10) Tachycardia Current Visit: Yes Status: Resolved - Time Spent With Patient Total time spent is greater than 50% in coordination of care (as documented) at patient's floor/unit and/or counseling patient: - Constitutional Vitals: Temp Pulse Resp BP Pulse Ox 99.0 F 111 18 115/76 100 11/28/17 10:32 11/28/17 10:32 11/28/17 10:32 11/28/17 10:32 11/28/17 10:32 Internal Medicine: Result - Labs CBC & Chem 7: 11/28/17 04:00 11/28/17 04:00 Labs: Short CBC 11/28/17 Range/Units 04:00 WBC 6.6 (4.3-11.1) K/mcL Hgb 11.0 L (12.9-16.9) g/dL Hct 34.6 L (37.5-50.1) % Plt Count 215 (140-400) K/mcL Neutrophils # 4.6 (1.6-8.9) K/mcL BMP 11/28/17 04:00 Sodium 143 Potassium 3.4 L Chloride 111 H Carbon Dioxide 27 BUN 6 Creatinine 0.91 Glucose 117 H Calcium 8.9 - ABG Interpretation ABG results: PT/INR, D-dimer PT 10.6 Seconds (9.4-12.1) 11/25/17 13:19 - Impressions Impressions Chest X-Ray 11/27/17 12:40 IMPRESSION: Low lung volumes. Right perihilar opacity, atelectasis favored over pneumonia. D/ / 11/27/2017 15:52:27 Orlando Anthony MD / sonali Interpreting Provider: Orlando Anthony MD - Attending Attestation I examined this patient and my medical decision-making was reviewed with the Resident Physician on 11/28/17. I agree with the documented findings, disposition and treatment plan as described except to the extent set forth below. Mr Beck is currently admitted for sepsis related to aspiration pneumonia and kidney stone. He remains moderate to high risk due to potential for worsening clinical status. Mr Beck appears to be uncomfortable at this time. No chest congestion. No cough. Appears to be tolerating tube feeds at this time. Exam Alert. Uncomfortable Mucus membranes dry Heart reg and not tachy Lungs clear at this time Abd soft I/P 1. Sepsis resolved 2. Asp PNA Further diagnoses and plan as above.
[2017-11-28] MEDS: levETIRAcetam 500 MG/5 ML UDC GTUBE SCH ×2 (09:40→20:09)
[2017-11-28] MEDS: *HR* OxyCODONE Oral Soln 5 MG/5 ML UD.LIQ GTUBE PRN (09:43)
[2017-11-28] MEDS: Nystatin POWDER 30 GM BOTTLE TP SCH ×2 (09:45→20:09)
[2017-11-29 03:21] LABS: Basophils % 0.3 %; Eosinophils # 0.2 K/mcL (0.0-0.6); Eosinophils % 2.8 %; Hematocrit 34.1 % (37.5-50.1); Hemoglobin 10.9 g/dL (12.9-16.9); Immature Granulocytes % 0.8 % (0-4); Lymphocytes # 1.6 K/mcL (0.6-4.6); Lymphocytes % 19.8 %; Mean Corpuscular Hemoglobin 28.7 pg (28.0-33.3); Mean Corpuscular Volume 89.7 fL (83.0-100.0); Mean Platelet Volume 10.8 fL (9.4-12.4); Monocytes # 0.9 K/mcL (0.0-1.3); Monocytes % 11.5 %; Neutrophils # 5.2 K/mcL (1.6-8.9); Platelet Count 243 K/mcL (140-400); Red Cell Distribution Width 13.8 % (11.5-14.5); Segmented Neutrophils % 64.8 %
[2017-11-29] MEDS: Ipratropium/Albuterol Neb 3 ML IH SCH ×4 (03:42→15:18)
[2017-11-29] MEDS: Acetylcysteine 10% 2 ML INHSOL IH SCH ×4 (03:42→15:18)
[2017-11-29 03:44] LABS: BUN/Creatinine Ratio 11 (6-26); Blood Urea Nitrogen 10 mg/dL (6-20); Calcium 8.6 mg/dL (8.6-10.3); Carbon Dioxide 28 mEq/L (23-29); Chloride 109 mEq/L (98-107); Glucose 101 mg/dL (70-105); Osmolality,Calculated 297 (280-300); Potassium 3.8 mEq/L (3.5-5.1); Sodium 144 mEq/L (136-145); eGFR For African Americans > 60 (> 60); eGFR For Non-African Americans > 60 (> 60)
[2017-11-29] MEDS: Meropenem 1,000 MG in Water for inj. (sterile) 20 ML 10 ML IVP SCH ×2 (04:56→11:35)
[2017-11-29] MEDS: *HR* Enoxaparin 40 MG/0.4 ML SYRINGE SQ SCH (04:56)
[2017-11-29] MEDS: Nystatin POWDER 30 GM BOTTLE TP SCH (08:09)
[2017-11-29] MEDS: levETIRAcetam 500 MG/5 ML UDC GTUBE SCH (08:09)
[2017-11-29] MEDS: 0.9 % Sodium Chloride 1,000 ML IVC SCH (08:10)
--- NOTE | 2017-11-29 13:45 | Discharge Summary ---
Orders not resulted at time of discharge: Pending orders 11/20/17 00:43 Culture,Sputum with Gram Stain [RM] Stat 11/30/17 04:00 BMP [Basic Metabolic Panel] AM 0400 BMP [Basic Metabolic Panel] AM 0400 CBC [Complete Blood Count] [HEME] AM 0400 Complete Blood Count [HEME] AM 0400 Magnesium AM 0400 12/01/17 04:00 BMP [Basic Metabolic Panel] AM 0400 CBC [Complete Blood Count] [HEME] AM 0400 12/02/17 04:00 BMP [Basic Metabolic Panel] AM 0400 CBC [Complete Blood Count] [HEME] AM 0400 12/03/17 04:00 BMP [Basic Metabolic Panel] AM 0400 CBC [Complete Blood Count] [HEME] AM 0400 Date of Encounter: 11/29/17 Time of Encounter: 13:43 - Discharge Diagnosis (1) Sepsis Priority: Primary Status: Resolved Qualifiers: Sepsis type: sepsis due to unspecified organism Qualified Code(s): A41.9 - Sepsis, unspecified organism (2) Aspiration pneumonia due to food (regurgitated) Priority: Primary Status: Suspected Qualifiers: Laterality: bilateral Lung location: lower lobe of lung Qualified Code(s) : J69.0 - Pneumonitis due to inhalation of food and vomit (3) UTI (urinary tract infection) Priority: Primary Status: Resolved Qualifiers: Urinary tract infection type: acute cystitis Hematuria presence: with hematuria Qualified Code(s): N30.01 - Acute cystitis with hematuria (4) Acute respiratory failure with hypoxia Priority: Primary Status: Acute (5) PEG (percutaneous endoscopic gastrostomy) status Priority: Secondary Status: Chronic (6) Hypokalemia Priority: Secondary Status: Resolved (7) Tachycardia Priority: Primary Status: Resolved (8) Renal calculi Priority: Primary Status: Acute (9) Acute bronchiolitis due to human metapneumovirus Priority: Primary Status: Acute Hospital course: Mr. 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 Patient presented to [place] ED w/ hypoxia, worsening resp secretions and sepsis. Patient was transferred to [place] ED for Right Renal Calculi and sepsis management. On initial evaluation in ED, patient had green sputum production but no findings on CXR. Urology was immediately consulted, and patient had cystoscopy and right ureteral stent placement. Patient was started on Rocephin in ED, but due to concerns of HAP was started on empiric therapy with Vanc and Zosyn. On day 4 of hospitalization patient continued to meet SIRS criteria, and due to concerns of inappropriate coverage, Gentamicin was started for double Pseudomonas coverage. On day 5 of hospitalization, patient remained in respiratory distress. At the time a large mucus plug was removed and patient after this was hemodynamically stable. Antibiotics were changed and eventually the patient was switched to meropenem and he had received a total of 10 days of antibiotics. He had shown no signs of being septic and has been stable for a few days prior to discharge. I believe he has been adequately treated with antibiotics for suspected aspiration pneumonia. There was thought about changing his PEG tube and inserting a J-tube however the patient did not need that after talking to both surgery and IR. I do not see a need of that as the patient has no issues with tolerating tube feeds after they were switched to Osmolite. The patient was at goal to be twice and was discharged to his nursing facility on 11/29. Neurology was also consulted due to hx of seizures and witnessed "flinching movements". It was believed that patient is well controlled on Keppra and most likely did not experience seizure. The patient was discharged on Keppra. - Time Spent with Patient Total time spent providing and/or coordinating discharge services: Greater than 30 minutes - Discharge Medications Prescriptions: levETIRAcetam [Keppra Oral Soln] 500 mg GTUBE BID #60 [facility] [place] Medications: Gabapentin [Neurontin] 800 mg GTUBE BID 06/01/17 [History] Multivit-Min/FA/Lycopen/Lutein [A Thru Z Select Multivit Tab] 1 tab GTUBE DAILY 06/01/17 [History] Polyethylene Glycol 3350 [MiraLAX] 17 gm GTUBE DAILY 06/01/17 [History] Simethicone 80 mg GTUBE BID 06/01/17 [History] Acetaminophen [Children's Pain-Fever] 640 mg GTUBE Q4HR PRN 11/19/17 [History] GuaiFENesin/Dextromethorphan [Robitussin/Dm] 5 ml GTUBE Q4HR PRN 11/19/17 [ History] Hydrocortisone 1% CREAM [Cortaid] 1 appl TP DAILY PRN 11/19/17 [History] Metoclopramide [Reglan] 5 mg GTUBE Q6HR 11/19/17 [History] Omeprazole [PriLOSEC] 20 mg GTUBE DAILY 11/19/17 [History] Promethazine [Phenergan] 25 mg GTUBE Q6HR PRN 11/19/17 [History] levETIRAcetam [Keppra Oral Soln] 500 mg GTUBE BID #60 udc 11/29/17 [Rx] Allergies/Adverse Reactions: 3 Allergy/AdvReac Type Severity Reaction Status Date / Time levofloxacin [From Levaquin] Allergy See Verified 11/19/17 14:37 Comments meperidine [From Demerol] Allergy See Verified 11/19/17 14:37 Comments ondansetron Allergy See Verified 11/19/17 14:37 [From Zofran (as Comments hydrochloride)] Date of admission: 11/19/17 19:28 Primary care physician: PCP NONE Consults: 11/19/17 20:14 Consult to Nutrition [CONS] Stat Comment: Consulting Provider: NUTRITION Reason for Dietary Consult: Tube Feed Start & Manage Consult to Practical Nurse [CONS] Routine Reason for SW Consult: [facility] 11/20/17 05:55 Consult to Neurology [CONS] Routine Consulting Provider: Neurology [facility] Reason for Consult: Admitted for sepsis and pneumonia. Hx of MRDD and seizures but not on any AEDs. Has had seizures on the floor during this admission. Patient started on Keppra and EEG ordered. Please evaluate and provide further recommendations. Thank-you Call Completed: No 11/21/17 09:44 Consult to Interpret Exam [CONS] Routine Consulting Provider: Norris Vu Consult to Interpret Exam: Interpret EEG 11/21/17 14:42 Consult to Invasive Line Access Team [CONS] Routine Reason for Consult: EPIV Line Type: EPIV 11/23/17 08:33 Consult to Wound Care [CONS] Routine Reason for Consult: Leaking colosotmy, excoriation. Call Completed: Yes 11/23/17 20:30 Consult to Urology [CONS] Routine Consulting Provider: Urology [place] Reason for Consult: spasms around catheter causing urine to come out around catheter. Call Completed: No 11/25/17 12:17 Consult to Invasive Line Access Team [CONS] Routine Reason for Consult: limited vascular access Line Type: Midline 11/25/17 13:17 Consult to Interventional Radiology [CONS] Routine Consulting Provider: Radiology Interventional [place] Reason for Consult: PEG tube to J tube Call Completed: Yes - Constitutional Vitals: Temp Pulse Resp BP Pulse Ox 99.3 F 84 18 117/80 100 11/29/17 11:13 11/29/17 11:13 11/29/17 11:13 11/29/17 11:13 11/29/17 11:13 General appearance: Present: pleasant, no acute distress, obese. Absent: answers questions appropriately Exam: GEN: NAD CVS: RRR. S1, S2, No m/r/g RESP: CTAB ABD: Soft, NT, ND, +BS. PEG noted. ileostomy noted with normal colored stool EXT: No edema. 2+ DP. No rashes NEURO: Nonfocal - Patient Status Disposition: Transfer SNF Condition: Good Overall status at discharge: patient is progressing back to baseline - Discharge Instructions Instructions: Levetiracetam (By mouth), Urinary Tract Infection in Men (DC) Follow Up With: NONE,PCP [Primary Care Provider] - (patient is from [facility]) Ahmet Haque MD [Partnered Physician] - (2 weeks) - Diet and Activity Activity: increase activity as tolerated Diet: other
--- NOTE | 2017-11-29 13:49 | Physician Discharge Referral ---
ExtendedCare Referral Info Institutional Level of Care: Skilled - Diagnosis (1) Sepsis Status: Resolved (2) Aspiration pneumonia due to food (regurgitated) Status: Suspected (3) UTI (urinary tract infection) Status: Resolved (4) Acute respiratory failure with hypoxia Status: Acute (5) PEG (percutaneous endoscopic gastrostomy) status Status: Chronic (6) Hypokalemia Status: Resolved (7) Tachycardia Status: Resolved (8) Renal calculi Status: Acute (9) Acute bronchiolitis due to human metapneumovirus Status: Acute - Transfer Medications Prescriptions: levETIRAcetam [Keppra Oral Soln] 500 mg GTUBE BID #60 [facility] Home Medications: Gabapentin [Neurontin] 800 mg GTUBE BID 06/01/17 [History] Multivit-Min/FA/Lycopen/Lutein [A Thru Z Select Multivit Tab] 1 tab GTUBE DAILY 06/01/17 [History] Polyethylene Glycol 3350 [MiraLAX] 17 gm GTUBE DAILY 06/01/17 [History] Simethicone 80 mg GTUBE BID 06/01/17 [History] Acetaminophen [Children's Pain-Fever] 640 mg GTUBE Q4HR PRN 11/19/17 [History] GuaiFENesin/Dextromethorphan [Robitussin/Dm] 5 ml GTUBE Q4HR PRN 11/19/17 [ History] Hydrocortisone 1% CREAM [Cortaid] 1 appl TP DAILY PRN 11/19/17 [History] Metoclopramide [Reglan] 5 mg GTUBE Q6HR 11/19/17 [History] Omeprazole [PriLOSEC] 20 mg GTUBE DAILY 11/19/17 [History] Promethazine [Phenergan] 25 mg GTUBE Q6HR PRN 11/19/17 [History] levETIRAcetam [Keppra Oral Soln] 500 mg GTUBE BID #60 udc 11/29/17 [Rx] Allergies/Adverse Reactions: 3 Allergy/AdvReac Type Severity Reaction Status Date / Time levofloxacin [From Levaquin] Allergy See Verified 11/19/17 14:37 Comments meperidine [From Demerol] Allergy See Verified 11/19/17 14:37 Comments ondansetron Allergy See Verified 11/19/17 14:37 [From Zofran (as Comments hydrochloride)] - Respiratory Orders Smoking Cessation: Smoking cessation has been advised. For more information, call the [place] Tobacco Quit Line at 3-236-MGXT-NOW. - Diet Orders Tube Feedings (type/amount/rate): Osmolite 1.2 with goal rate of 60 ml/hr free water flushes via PEG, 200ml Q4h CERTIFICATION: I certify that the transfer of the above named patient to an Extended Care Facility is necessary for the continuing treatment of the diagnosis listed. The above information is true and accurate reflection of patient's current condition. Confidential - Redisclosure prohibited without a patient's written consent.
[2017-11-29 15:48] VITALS: BP 109/75
== END 2017-11-29 16:42 | DRG 871 ==
LOC: 2ANU → SUATTDRO 19:28
PROVIDERS: ADMIT Internal Medicine; ATTEND Internal Medicine